=== PATIENT | male | born 1985 | race Caucasian/White ===

== ENCOUNTER 2019-04-14 13:12 | Emergency (ER) | payer BC, SELFPAY ==
[2019-04-14 13:23] VITALS: BP 127/63; PULSE 71; RESP 18; TEMP 36.6; O2SAT 99; BMI 18.4
--- NOTE | 2019-04-14 13:31 | XRR_ITS ---
PROCEDURE INFORMATION: Exam: XR Left Hand Exam date and time: 04/14/2019 1:33 PM Age: 33 years old Clinical indication: Pain; Hand; Left; Additional info: Trauma TECHNIQUE: Imaging protocol: XR Left hand. Views: 1 or 2 views. COMPARISON: No relevant prior studies available. FINDINGS: Bones/joints: Normal. No fracture evident. Soft tissues: Normal. XR/XR hand LT 2V [id number] IMPRESSION: No acute findings.
--- NOTE | 2019-04-14 13:33 | W.ED.EXTPRO ---
HPI - Extremity Problem General: Chief complaint: Extremity Injury, Upper Stated complaint: l hand pain Time Seen by Provider: 04/14/19 13:15 Review of Systems General: Reports: 10 or more systems reviewed and unremarkable except in HPI and below PFSH ED PFSH: Social History Smoking and tobacco status: never smoked Physical Exam Const: COMMON NORMALS: no apparent distress, oriented x3, no limitations and alert GENERAL APPEARANCE: cooperative and comfortable ORIENTATION/CONSCIOUSNESS: Yes awake, Yes oriented to person, Yes oriented to place and Yes oriented to time HENMT: COMMON NORMALS: normocephalic, head/scalp atraumatic, external ears normal, EAC's normal, TM's normal bilaterally and external nose normal HEAD & SCALP: normal to inspection, normocephalic and atraumatic FACE & SINUS: normal facial exam, sinuses nontender and face symmetric NOSE: external nose normal, nares normal and no nasal discharge EXTERNAL EAR: Yes external ears normal EXTERNAL AUDITORY CANAL: EAC's normal TYMPANIC MEMBRANE: TM's normal bilaterally MOUTH: oral and palatal mucosa normal, lip normal and tongue normal THROAT: posterior oropharynx normal, tonsils normal and uvula midline Eye: COMMON NORMALS: PERRL, EOMs intact bilaterally and conjunctivae normal GENERAL EYE: normal appearance of both eyes and normal light reflex EYELID: eyelids normal CONJUNCTIVA: Yes conjunctivae normal PUPIL: Yes PERRL EOM: Yes EOM abnormal DIRECT OPHTHALMOSCOPY: Yes normal light reflex Neck/C-Spine: COMMON NORMALS: full ROM, no lymphadenopathy, supple, no meningeal signs, no JVD and thyroid normal GENERAL: Yes normal visual inspection THYROID: thyroid normal CERVICAL SPINE: Yes cervical ROM normal and Yes normal cervical lordosis Lymph: LYMPHATIC: no lymphadenopathy noted Chest: COMMONS NORMALS: inspection of chest normal and palpation of chest normal Resp: COMMON NORMALS: normal respiratory effort, no retractions and clear to auscultation bilaterally AUSCULTATION: clear to auscultation bilaterally Cardio: COMMON NORMALS: no JVD, regular rate, regular rhythm, S1 normal heart sound, S2 normal heart sound, no gallops, no clicks, no murmurs, no rub and peripheral pulses 2+ throughout RATE: regular rate RHYTHM: regular rhythm HEART SOUNDS: S1 normal and S2 normal PERIPHERAL PULSES: pulses 2+ throughout GI: COMMON NORMALS: normal to inspection, nondistended, normoactive bowel sounds, soft to palpation, non-tender and no masses PALPATION: Yes soft : COMMON NORMALS: Yes no CVA tenderness BLADDER/KIDNEY EXAM: Yes no CVA tenderness Back/Pelvis: COMMON NORMALS: no CVA tenderness, thoracic and lumbar spine normal to inspection, no thoracic nor lumbar tenderness and thoraco-lumbar ROM normal Extremity: COMMON NORMALS: normal to inspection, full ROM, normal capillary refill, no joint enlargement, no clubbing, cyanosis or edema, no calf tenderness and no pedal edema GENERAL: Yes normal exam except as noted LEFT UPPER EXTREMITY: Yes hand & digits Left hand and digits: Yes inspection, Yes palpation (pain over dosum of left hand, base of second metatarsal ) and Yes ROM Neuro: COMMON NORMALS: oriented x3, moves all extremities, no focal motor deficits, no sensory deficits noted and gait normal SENSORIUM/ORIENTATION: Yes alert, Yes oriented to person, Yes oriented to place and Yes oriented to time MENINGEAL SIGNS: Yes no meningeal signs Psych: COMMON NORMALS: mental status grossly normal, thought process normal, cooperative, affect normal, speech normal and activity/motor behavior normal SPEECH: Yes normal speech THOUGHT PROCESS: normal thought process Skin: COMMON NORMALS: no rashes or lesions noted, no wounds and skin turgor normal GENERAL SKIN EXAM: no rashes or lesions noted and turgor normal Course Vital Signs: Vital signs: Vital Signs Temperature 98 F 04/14/19 13:23 Pulse Rate 71 04/14/19 13:23 Respiratory Rate 18 04/14/19 13:23 Blood Pressure 127/63 04/14/19 13:23 Pulse Oximetry 99 04/14/19 13:23 MDM - Extremity (Nontraumatic) Imaging Data^: Xray Ortho: My impression: left hand xray 2v- No acute findings or fractures Discharge Plan Discharge Patient Disposition: Home, Self-Care Clinical Impression: Sprain and strain of wrist Condition: Stable Prescriptions: No Action No Known Home Medications RF: 0 Referrals: Fermin Morales MD [Family Provider] - Discharge Diet: Advance as tolerated Discharge Activity: Increase activity as tolerated Activity Restrictions/Additional Instructions: Follow up with PCP or return to ER if worsening in symptoms. Xray today was negative. May continue to rest, ice, elevate, and compress. Stand Alone Forms: Work/School Release Coding Level of Care Code ED [employer] Developer for Chg Fwd Exam Comprehensive
[2019-04-14 14:19] VITALS: BP 126/74; PULSE 68; RESP 18; O2SAT 98
== END 2019-04-14 14:20 | disposition home or self-care (01) ==
PROVIDERS: Emergency Provider Nurse Practitioner Family; Family Provider Family Medicine
DX: S63.502A Unspecified sprain of left wrist, initial encounter (principal); S66.912A Strain of unspecified muscle, fascia and tendon at wrist and hand level, left hand, initial encounter; X58.XXXA Exposure to other specified factors, initial encounter
CPT/HCPCS: 73120; 99281; 99282

== ENCOUNTER 2020-07-07 14:43 | Emergency (ER) | payer OTHER, SELFPAY ==
[2020-07-07 15:08] VITALS: BP 115/71; PULSE 72; RESP 20; TEMP 37; O2SAT 99; BMI 20.7
--- NOTE | 2020-07-07 16:06 | W.ED.GENADLT ---
HPI - General Adult General: Chief complaint: General Medical Stated complaint: ALLERGIC REACTION/DIFF BREATHING Time Seen by Provider: 07/07/20 15:51 History of Present Illness: HPI narrative: Patient reports worsening sinus and nasal to congestion for the last 2 weeks. Patient had gone out fishing on Monday and since then his symptoms have worsened. Patient's been unable to rest and sleep due to nasal and sinus pressure. Onset (ago): week(s) Location: face Quality: aching and dull Relieving factors: none Exacerbating factors: none Review of Systems General: Reports: 10 or more systems reviewed and unremarkable except in HPI and below ENMT: Reports: nasal discharge and nasal congestion PFS ED PFSH: Social History (Updated 12/30/19 @ 12:41 by Lauren Hendrickson LPN) Smoking and tobacco status: current every day smoker Physical Exam Const: COMMON NORMALS: no acute distress and patient oriented x3 GENERAL APPEARANCE: cooperative HENMT: COMMON NORMALS: normocephalic, TM's normal bilaterally and Normal external nose present HEAD & SCALP: normal to inspection and normocephalic NOSE: Normal external nose present, Abnormal mucous membranes and turbinates present erythematous and Nasal discharge present TYMPANIC MEMBRANE: TM's normal bilaterally MOUTH: Normal oral and palatal mucosa present THROAT: posterior oropharynx abnormal cobblestoning and erythema Eye: GENERAL EYE: appearance normal, both eyes and all related structures Neck/C-Spine: COMMON NORMALS: full ROM Lymph: LYMPHATIC: no lymphadenopathy noted Chest: COMMONS NORMALS: normal inspection of the chest Resp: COMMON NORMALS: normal respiratory effort EFFORT & INSPECTION: Yes able to speak in complete sentences Cardio: COMMON NORMALS: regular rate and regular rhythm RATE: regular rate RHYTHM: regular rhythm GI: COMMON NORMALS: non-tender Back/Pelvis: COMMON NORMALS: thoracic and lumbar spine normal to inspection Extremity: COMMON NORMALS: normal to inspection Neuro: COMMON NORMALS: patient oriented x3 and moves all extremities Psych: COMMON NORMALS: mental status grossly normal and cooperative Skin: COMMON NORMALS: no rashes or lesions noted GENERAL SKIN EXAM: no rashes or lesions noted Course Vital Signs: Vital signs: Vital Signs Temperature 98.6 F 07/07/20 15:08 Pulse Rate 72 07/07/20 15:08 Respiratory Rate 20 H 07/07/20 15:08 Blood Pressure 115/71 07/07/20 15:08 Pulse Oximetry 99 07/07/20 15:08 MDM - General Adult MDM Narrative: Medical decision making narrative: Patient comes in with nasal congestion and difficulty breathing. On exam lungs are clear to auscultation. Nasal mucosa swollen and erythematous. Patient has maxillary sinus pain on pressure. Bilateral tympanic membranes are normal. Posterior pharynx is erythematous with some cobblestoning. Differential diagnosis includes seasonal allergies, bacterial rhinosinusitis, asthma. No signs of significant difficulties or respiratory distress is noted. Due to patient's time of greater than 10 days we will go ahead and treat with antibiotics and steroids for a acute rhinosinusitis. Reviewed exam with patient with recommendations for treatment and follow-up. Patient reported understanding. Discharge Plan Discharge Patient Disposition: Home Clinical Impression: Acute rhinosinusitis Condition: Stable Prescriptions: New cetirizine-pseudoephedrine 5-120 mg tablet extended release 12 hr 1 tab PO BID PRN (Reason: nasal congestion) Qty: 20 RF: 0 fluticasone propionate 50 mcg/actuation spray,suspension 1 spray intranasal BID PRN (Reason: allergy symptoms) Qty: 16 RF: 0 azithromycin 250 mg tablet See Rx Instructions .ROUTE .COMPLEX Qty: 6 RF: 0 No Action Zyrtec 10 mg Tablet 10 mg PO DAILY PRN (Reason: Allergy Symptoms) RF: 0 Discharge Orders: Discharge ED (Routine); Ordered 07/07/20 Ordered By: Dante Amaro Discharge Diet: Usual diet Discharge Activity: Increase activity as tolerated Patient Instructions: Acute Bacterial Rhinosinusitis (ED), Opioid Safety Activity Restrictions/Additional Instructions: Use medication as directed. Drink plenty of water with medication. Activity as tolerated. Follow-up with primary care for further instruction. Use saline nasal spray to help clear nasal passages as needed. Clear nasal passages before using fluticasone nasal spray. Follow-up with primary care as needed. Return to the emergency department for new concerns. Coding Level of Care Code ED Fabrication Machine Operator for Craig Lyons
[2020-07-07] MEDS: dexamethasone 10 mg/mL INJ IM (16:33)
== END 2020-07-07 16:39 | disposition home or self-care (01) ==
PROVIDERS: Emergency Provider Nurse Practitioner Family
DX: J01.90 Acute sinusitis, unspecified (principal); F17.210 Nicotine dependence, cigarettes, uncomplicated
CPT/HCPCS: 96372; 99283; J1100

== ENCOUNTER 2020-11-19 18:05 | Emergency (ER) | payer OTHER, SELFPAY ==
[2020-11-19 18:09] VITALS: BP 138/74; PULSE 73; RESP 18; TEMP 36.4; O2SAT 99; BMI 21.7
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
[2020-11-19 18:30] VITALS: RESP 18; O2SAT 97
[2020-11-19] MEDS: tetracaine 0.5% Op Soln 4 mL Btl 1 DROP EYE-LEFT (18:30)
[2020-11-19] MEDS: ondansetron 2 mg/ML SDV 2 mL 4 MG IVP (18:30)
[2020-11-19] MEDS: HYDROmorphone 1 mg/mL INJ 1 mL IVP (18:30)
--- NOTE | 2020-11-19 19:08 | PC.NURSE ---
pt visual acuiity was blurry in the left eye as expected. could only see the E. right eye was 20/30
[2020-11-19] MEDS: metoclopramide 5 mg/mL SDV 2 mL IVP (19:14)
[2020-11-19] MEDS: diphenhydrAMINE 50 mg/mL SDV 1mL 25 MG IVP (19:16)
[2020-11-19 19:20] VITALS: BP 96/72
--- NOTE | 2020-11-20 12:29 | DCPLANNER ---
guest experience manager had message to schedule a follow up appointment for patient with Dr. Zuniga. Patient came back to the ER on 11.20.[address] Zuniga office upon discharge.
== END 2020-11-19 19:20 | disposition home or self-care (01) ==
PROVIDERS: Emergency Provider Emergency Medicine
DX: T20.10XA Burn of first degree of head, face, and neck, unspecified site, initial encounter (principal); T26.12XA Burn of cornea and conjunctival sac, left eye, initial encounter; T31.0 Burns involving less than 10% of body surface; X12.XXXA Contact with other hot fluids, initial encounter; F17.210 Nicotine dependence, cigarettes, uncomplicated
CPT/HCPCS: 96374; 96375; 99284; J1170; J1200; J2405; J2765

== ENCOUNTER 2020-11-20 10:27 | Emergency (ER) | payer OTHER, SELFPAY ==
[2020-11-20 10:33] VITALS: BP 117/70; PULSE 69; RESP 13; TEMP 36.4; O2SAT 95; BMI 19.0
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
[2020-11-20] MEDS: tetracaine 0.5% Op Soln 4 mL Btl 1 DROP EYE-BOTH (11:53)
== END 2020-11-20 12:05 | disposition home or self-care (01) ==
PROVIDERS: Emergency Provider Emergency Medicine
DX: T26.10XA Burn of cornea and conjunctival sac, unspecified eye, initial encounter (principal); X12.XXXA Contact with other hot fluids, initial encounter; F17.210 Nicotine dependence, cigarettes, uncomplicated
CPT/HCPCS: 99282

== ENCOUNTER 2021-02-25 13:32 | Emergency (ER) | payer OTHER, SELFPAY ==
[2021-02-25 14:01] VITALS: BP 99/58; PULSE 104; RESP 16; TEMP 36.7; O2SAT 99; BMI 24.4
--- NOTE | 2021-02-25 14:35 | ED_ITS ---
HPI - Abdominal Pain General: Chief Complaint: Abdominal Pain Stated Complaint: THROWING UP Time Seen by Provider: 02/25/21 14:17 History of Present Illness: HPI narrative: Patient comes in with concerns for cold symptoms including chills, body aches, cough, congestion, vomiting. He states the symptoms started yesterday. States his whole family has been sick this week with 2 of them testing positive for COVID. Patient has been unable to keep anything down all day. Associated Symptoms: Reports chills, fever(s), nausea and vomiting; Denies dysuria Review of Systems Const: Reports: fever(s), chills and body aches Eyes: Denies: change in vision or blurry vision ENMT: Denies: throat pain or odynophagia Card: Denies: chest pain or palpitations Resp: Reports: dyspnea; Denies: productive cough GI: Reports: abdominal pain, nausea and vomiting : Denies: flank pain or dysuria Musc: Denies: neck pain or back pain Skin/Breast: Denies: rash or pruritus Neuro: Reports: headache(s); Denies: numbness in extremities Psych: Denies: anxiety or change in appetite Endo: Denies: polyuria or excessive sweating PFSH ED PFSH: Social History (Updated 12/30/19 @ 12:41 by Lauren Hendrickson LPN) Smoking and tobacco status: current every day smoker Physical Exam Const: COMMON NORMALS: patient oriented x3, healthy appearing and alert; apparent distress (Mild distress) HENMT: COMMON NORMALS: normocephalic and atraumatic HEAD & SCALP: normocephalic and atraumatic MOUTH: moist mucous membranes not abnormal (Dry mucous membranes) Eye: COMMON NORMALS: Equal, round and reactive pupils present, EOMs intact bilaterally and negative for conjunctivae normal (Bilateral glassy eyed appearance) CONJUNCTIVA: No conjunctivae normal (Bilateral glassy eyed appe arance) PUPIL: Yes Equal, round and reactive pupils present Neck/C-Spine: COMMON NORMALS: full ROM and supple Resp: COMMON NORMALS: normal respiratory effort, No retractions and No use of accessory muscles Cardio: COMMON NORMALS: regular rate and regular rhythm RATE: regular rate RHYTHM: regular rhythm GI: COMMON NORMALS: Normal to inspection, nondistended, normoactive bowel sounds present and Soft to palpation PALPATION: Yes Soft to palpation and Yes Tenderness to palpation present (GI) (Generalized mild tenderness to palpation) Back/Pelvis: COMMON NORMALS: thoracic and lumbar spine normal to inspection and no thoracic nor lumbar tenderness Extremity: COMMON NORMALS: normal to inspection and full ROM Neuro: COMMON NORMALS: patient oriented x3 SENSORIUM/ORIENTATION: Yes alert Psych: COMMON NORMALS: mental status grossly normal and cooperative Skin: COMMON NORMALS: no rashes or lesions noted and no wounds GENERAL SKIN EXAM: no rashes or lesions noted Course Vital Signs: Vital signs: Vital Signs Temperature 98.1 F 02/25/21 14:01 Pulse Rate 104 H 02/25/21 14:01 Respiratory Rate 16 02/25/21 14:01 Blood Pressure 99/58 02/25/21 14:01 Pulse Oximetry 99 02/25/21 14:01 MDM - Abdominal Pain MDM Narrative: Medical decision making narrative: Patient comes in with concerns for cold symptoms including chills, body aches, cough, congestion, vomiting. He states the symptoms started yesterday. States his whole family has been sick this week with 2 of them testing positive for COVID. Patient has been unable to keep anything down all day. On physical exam he has dry mucous membranes. He does have some mild generalized tenderness of his entire abdomen. We will give him IV fluids, check labs, treat nausea with IV antiemetics, treat pain with IV Toradol, and reassess. On reassessment I talked to the patient about the test results. He states he is feeling much better at this time. Will discharge with precautions to return for worsening or changing symptoms. Lab Data: Labs: Lab Results 02/25/21 02/25/21 15:00 15:00 WBC 7.4 10^3/uL 10^3/ uL (4.0-10.0) RBC 4.88 10^6/uL 10^6 /uL (4.1-5.3) Hgb 14.7 g/dL g/dL (11.7-16.6) Hct 42.6 % % (42.0-52.0) MCV 87.3 fl fl (80-94) MCH 30.1 pg pg (28.0-34.0) MCHC 34.5 g/dL g/dL (30.0-36.0) RDW 11.8 % L % (12.1-15.1) Plt Count 183 10^3/cmm 10^3 /cmm (130-400) MPV 9.0 fL fL (7.4-10.4) Neut % (Auto) 85.6 % % Lymph % (Auto) 2.8 % % [place] % (Auto) 10.8 % % Eos % (Auto) 0.3 % % Baso % (Auto) 0.1 % % Neut # (Auto) 6.32 10^3/uL 10^3 /uL (1.8-7.7) Lymph # (Auto) 0.2 10^3/uL L 10^ 3/uL (0.8-4.8) [place] # (Auto) 0.8 10^3/uL 10^3/ uL (0.2-0.9) Eos # (Auto) 0.0 10^3/uL 10^3/ uL (0.0-0.8) Baso # (Auto) 0.0 10^3/uL 10^3/ uL (0.0-0.1) Nucleated RBC % (a uto) 0 % % Nucleated RBCs # 0.0 /100WBC /100W BC Sodium 138 mmol/L mmol/L (136-145) Potassium 3.7 mmol/L mmol/L (3.5-5.1) Chloride 101 mmol/L mmol/L (98-107) Carbon Dioxide 21 mmol/L L mmol/ L (22-29) Anion Gap 19.7 H (5-19) BUN 10 mg/dL mg/dL (6-20) Creatinine 1.0 mg/dL mg/dL (0.7-1.2) GFR Calculation 85.0 mL/min L mL/ min (90-130) Glucose 98 mg/dL mg/dL (65-115) Calculated Osmolal ity 285 mOsm/kg mOsm/ kg (285-295) Calcium 8.8 mg/dL mg/dL (8.5-10.5) Total Bilirubin 0.6 mg/dL mg/dL (0.15-1.2) AST 19 U/L U/L (0-40) ALT 13 U/L U/L (0-41) Alkaline Phosphata se 87 IU/L IU/L (40-130) Total Protein 6.5 g/dL L g/dL (6.6-8.7) Albumin 4.4 g/dL g/dL (3.5-5.2) Globulin 2.1 g/dL g/dL (1.3-4.6) Lipase 15 U/L U/L (13-60) Discharge Plan Discharge Patient Disposition: Home Clinical Impression: Vomiting Qualifiers: Vomiting type: unspecified Nausea presence: with nausea Qualified Code(s): R11.2 - Nausea with vomiting, unspecified Condition: Stable Prescriptions: New Zofran 4 mg tablet 4 mg PO Q8H 5 Days Qty: 15 RF: 0 No Action cetirizine-pseudoephedrine 5-120 mg tablet extended release 12 hr 1 tab PO BID PRN (Reason: nasal congestion) Qty: 20 RF: 0 Zyrtec 10 mg Tablet 10 mg PO DAILY PRN (Reason: Allergy Symptoms) RF: 0 fluticasone propionate 50 mcg/actuation spray,suspension 1 spray intranasal BID PRN (Reason: allergy symptoms) Qty: 16 RF: 0 azithromycin 250 mg tablet See Rx Instructions .ROUTE .COMPLEX Qty: 6 RF: 0 hydrocodone-acetaminophen 5-325 mg tablet 1 tab PO Q6H PRN (Reason: pain) Qty: 14 RF: 0 ondansetron 4 mg tablet,disintegrating 4 mg PO Q6H PRN (Reason: nausea and vomiting) Qty: 14 RF: 0 Discharge Orders: Discharge ED (Routine); Ordered 02/25/21 Ordered By: Issa Acosta Coding Level of Care Code 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
[2021-02-25] MEDS: sodium chloride 0.9% 1,000 ML 999 ML IV (14:57)
[2021-02-25] MEDS: ketorolac 30 mg/mL INJ IVP (14:57)
[2021-02-25] MEDS: ondansetron 2 mg/ML SDV 2 mL 4 MG IVP (14:57)
[2021-02-25 15:05] LABS: Basophils % 0.1 %; Eosinophils % 0.3 %; Hematocrit 42.6 % (42.0-52.0); Hemoglobin 14.7 g/dL (11.7-16.6); Lymphocytes # 0.2 10^3/uL (0.8-4.8); Lymphocytes % 2.8 %; Mean Corpuscular HGB Conc 34.5 g/dL (30.0-36.0); Mean Corpuscular Hemoglobin 30.1 pg (28.0-34.0); Mean Corpuscular Volume 87.3 fl (80-94); Monocytes # 0.8 10^3/uL (0.2-0.9); Monocytes % 10.8 %; Neutrophils # 6.32 10^3/uL (1.8-7.7); Neutrophils % 85.6 %; Nucleated Red Blood Cells % 0 %; Platelet Count 183 10^3/cmm (130-400); Red Blood Count 4.88 10^6/uL (4.1-5.3); Red Cell Distribution Width 11.8 % (12.1-15.1); White Blood Count 7.4 10^3/uL (4.0-10.0)
[2021-02-25 15:26] LABS: Alanine Aminotransferase 13 U/L (0-41); Albumin Level 4.4 g/dL (3.5-5.2); Alkaline Phosphatase 87 IU/L (40-130); Anion Gap 19.7 (5-19); Aspartate Amino Transferase 19 U/L (0-40); Blood Urea Nitrogen 10 mg/dL (6-20); Calcium 8.8 mg/dL (8.5-10.5); Carbon Dioxide 21 mmol/L (22-29); Chloride 101 mmol/L (98-107); Globulin 2.1 g/dL (1.3-4.6); Glucose 98 mg/dL (65-115); Lipase 15 U/L (13-60); Osmolality Calculated 285 mOsm/kg (285-295); Potassium 3.7 mmol/L (3.5-5.1); Sodium 138 mmol/L (136-145); Total Bilirubin 0.6 mg/dL (0.15-1.2); Total Protein 6.5 g/dL (6.6-8.7)
[2021-02-25 17:56] VITALS: BP 98/54; PULSE 97; RESP 16; O2SAT 98
== END 2021-02-25 17:57 | disposition home or self-care (01) ==
PROVIDERS: Emergency Provider Emergency Medicine
DX: R11.2 Nausea with vomiting, unspecified (principal); F17.210 Nicotine dependence, cigarettes, uncomplicated
CPT/HCPCS: 80053; 83690; 85025; 96361; 96374; 96375; 99283; J1885; J2405; J7030

== ENCOUNTER 2021-09-01 22:16 | Emergency (ER) | payer OTHER, SELFPAY ==
[2021-09-01 22:23] VITALS: BP 128/65; PULSE 68; RESP 34; TEMP 36.7; O2SAT 100; BMI 19.0
--- NOTE | 2021-09-01 22:57 | ED_ITS ---
HPI - SOB/Dyspnea General: Chief Complaint: Shortness of Breath/Dyspnea Stated Complaint: sob Time Seen by Provider: 09/01/21 22:57 History of Present Illness: HPI Narrative: Mr. Espinoza is a 35-year-old gentleman with significant past medical history of chronic allergies and vaping who presents to the emergency department due to shortness of breath. Apparently he was seen 2 weeks ago at [facility] and diagnosed with COVID however felt like he was improving. He is starting this morning is at shortness of breath and cough to the point of posttussive emesis. Symptoms are worse with exertion. Overall intensity symptoms is moderate to severe. Denies other typical COVID symptoms. No other specific changes in health, exacerbating, or alleviating factors identified. Onset (ago): hour(s) Context: recent illness Timing: constant Severity: moderate Exacerbating factors: coughing Associated symptoms: Reports nausea Review of Systems General: Reports: 10 or more systems reviewed and unremarkable except in HPI and below GI: Reports: nausea [facility] ED PFSH: Medical History (Updated 09/13/21 @ 23:05 by Gus Brennan MD) No significant past medical history Surgical History (Updated 09/13/21 @ 23:05 by Gus Brennan MD) No significant past surgical history Social History Smoking and tobacco status: current every day smoker Physical Exam Const: COMMON NORMALS: alert GENERAL APPEARANCE: cooperative, well developed and ill appearing (somewhat) HENMT: COMMON NORMALS: normocephalic and atraumatic HEAD & SCALP: normocephalic and atraumatic THROAT: posterior oropharynx normal Eye: COMMON NORMALS: conjunctivae normal CONJUNCTIVA: Yes conjunctivae normal SCLERA: sclerae normal Neck/C-Spine: COMMON NORMALS: supple GENERAL: Yes trachea midline Resp: EFFORT & INSPECTION: Yes able to speak in complete sentences and Yes tachypneic AUSCULTATION: diminished lung sounds Cardio: COMMON NORMALS: regular rate and regular rhythm RATE: regular rate RHYTHM: regular rhythm GI: COMMON NORMALS: Soft to palpation PALPATION: Yes Soft to palpation and No Tenderness to palpation present (GI) PERCUSSION: normal to percussion Extremity: GENERAL: Yes normal exam except as noted and No edema Neuro: COMMON NORMALS: moves all extremities SENSORIUM/ORIENTATION: Yes dylon rt and No Orientation impaired Psych: COMMON NORMALS: mental status grossly normal and Normal thought process present THOUGHT PROCESS: Normal thought process present Course ED course: - Patient was seen and evaluated by me at bedside - Patient placed on cardiac monitors, IV access obtained - Initial evaluation notable for exam as above - Labs and xrays personally interpreted by me. EKG with sinus bradycardia, no STEMI - Fluids, analgesia, and antiemetic given. RT treatment given. - Labs notable for mildly cytosis, normal hemoglobin. Metabolic panel without significant derangement, lactic acid mildly elevated. Troponin negative. Viral studies negative. - Imaging notable for no lobar consolidation or pneumothorax - Upon serial reexamination after treatment the patient was improved - Based on patient history, evaluation, and testing as interpreted the most likely cause of the patient's condition is post COVID shortness of breath likely secondary to inflammation/atypical infection - The results of ED evaluation were discussed with the patient including prescriptions and/or symptomatic cares (if applicable) including appropriate and responsible use, followup plan, and return precautions. The patient verbalized understanding and felt safe for discharge. - Patient discharged in satisfactory condition. Note: Click bubbles or prepopulated tapia in note writing are used for assistance with data collection and billing and are inherently more limited than narrative and other text portions of this note. Please use narrative for additional clinical history and defer to narrative/free test for any case of contradictory information. If information appears in only free text or click bubble it should be considered present or absent as reported. Please contact note policy writer sales for clarifications of clinical information or contradictory information. MDM is a brief summary, contradictory or erroneous seeming information should be clarified and full note should be reviewed. Vital Signs: Vital signs: Vital Signs Temperature 98.0 F 09/01/21 22:23 Pulse Rate 71 09/02/21 01:30 Respiratory Rate 13 09/02/21 01:30 Blood Pressure 107/56 09/02/21 01:30 Pulse Oximetry 95 09/02/21 01:30 Oxygen Delivery Nj thod 09/02/21 01:30 MDM - SOB/Dyspnea Medical Decision Making 36-year-old gentleman with history of COVID and breathing presenting with respiratory symptoms. Dehydration noted on ED evaluation. Patient improved with treatment and able to tolerate p.o. intake. Satisfactory outpatient management. Medical Records I reviewed the patient's medical records. Lab Data I reviewed the patient's lab results. : 09/01/21 23:35 09/01/21 23:35 Labs/Radiology: Radiology Impressions Chest X-Ray 09/02/21 00:12 IMPRESSION: No acute abnormality demonstrated. Laboratory Results WBC 11.7 10^3/uL (4.0-10.0) H 09/01/21 23:35 RBC 4.65 10^6/uL (4.1-5.3) 09/01/21 23:35 Hgb 14.0 g/dL (11.7-16.6) 09/01/21 23:35 Hct 40.5 % (42.0-52.0) L 09/01/21 23:35 MCV 87.1 fl (80-94) 09/01/21 23:35 MCH 30.1 pg (28.0-34.0) 09/01/21 23:35 MCHC 34.6 g/dL (30.0-36.0) 09/01/21 23:35 RDW 11.8 % (12.1-15.1) L 09/01/21 23:35 Plt Count 239 10^3/cmm (130-400) 09/01/21 23:35 MPV 9.1 fL (7.4-10.4) 09/01/21 23:35 Neut % (Auto) 76.9 % 09/01/21 23:35 Lymph % (Auto) 14.7 % 09/01/21 23:35 [place] % (Auto) 7.3 % 09/01/21 23:35 Eos % (Auto) 0.5 % 09/01/21 23:35 Baso % (Auto) 0.3 % 09/01/21 23:35 Neut # (Auto) 9.01 10^3/uL (1.8-7.7) H 09/01/21 23:35 Lymph # (Auto) 1.7 10^3/uL (0.8-4.8) 09/01/21 23:35 [place] # (Auto) 0.9 10^3/uL (0.2-0.9) 09/01/21 23:35 Eos # (Auto) 0.1 10^3/uL (0.0-0.8) 09/01/21 23:35 Baso # (Auto) 0.0 10^3/uL (0.0-0.1) 09/01/21 23:35 Nucleated RBC % (auto) 0 % 09/01/21 23:35 Nucleated RBCs # 0.0 /100WBC 09/01/21 23:35 D-Dimer 0.28 ug/mIFEU (0-0.59) 09/01/21 23:35 Sodium 138 mmol/L (136-145) 09/01/21 23:35 Potassium 3.6 mmol/L (3.5-5.1) 09/01/21 23:35 Chloride 103 mmol/L (98-107) 09/01/21 23:35 Carbon Dioxide 23 mmol/L (22-29) 09/01/21 23:35 Anion Gap 15.6 (5-19) 09/01/21 23:35 BUN 15 mg/dL (6-20) 09/01/21 23:35 Creatinine 1.0 mg/dL (0.7-1.2) 09/01/21 23:35 GFR Calculation 85.0 mL/min (90-130) L 09/01/21 23:35 Glucose 166 mg/dL (65-115) H 09/01/21 23:35 Calculated Osmolality 291 mOsm/kg (285-295) 09/01/21 23:35 Lactic Acid 2.3 mmol/L (0.5-2.2) H 09/01/21 23:35 Calcium 9.0 mg/dL (8.5-10.5) 09/01/21 23:35 Total Bilirubin 0.3 mg/dL (0.15-1.2) 09/01/21 23:35 AST 11 U/L (0-40) 09/01/21 23:35 ALT 8 U/L (0-41) 09/01/21 23:35 Alkaline Phosphatase 99 IU/L (40-130) 09/01/21 23:35 Troponin T Baseline 6 ng/L (0-15) 09/01/21 23:35 Troponin T 120 Minute 6.00 ng/L (0-15) 09/02/21 01:28 Delta Troponin T 0 ABS# (0-10) 09/02/21 01:28 NT-Pro-B Natriuret Pep 7 pg/mL (0-125) 07/20/22 23:35 Total Protein 6.0 g/dL (6.6-8.7) L 09/01/21 23:35 Albumin 4.3 g/dL (3.5-5.2) 09/01/21 23:35 Globulin 1.7 g/dL (1.3-4.6) 09/01/21 23:35 Influenza Type A Ag Negative (Negative) 09/01/21 23:37 Influenza Type B Ag Negative (Negative) 09/01/21 23:37 SARS-CoV-2 Ag (Rapid) Negative (Negative) 09/01/21 23:37 Discharge Plan Discharge Patient Disposition: Home Clinical Impression: Shortness of breath Condition: Stable Prescriptions: New ondansetron 4 mg tablet,disintegrating 4 mg PO Q8H PRN (Reason: nausea and vomiting) Qty: 15 0RF albuterol sulfate 90 mcg/actuation HFA aerosol inhaler 2 inh inhalation Q4H PRN (Reason: shortness of breath or wheezing) Qty: 8.5 0 RF No Action cetirizine-pseudoephedrine 5-120 mg tablet extended release 12 hr 1 tab PO BID PRN (Reason: nasal congestion) Qty: 20 0RF Zyrtec 10 mg Tablet 10 mg PO DAILY PRN (Reason: Allergy Symptoms) fluticasone propionate 50 mcg/actuation spray,suspension 1 spray intranasal BID PRN (Reason: allergy symptoms) Qty: 16 0RF Rx Instructions: administer into each nostril azithromycin 250 mg tablet See Rx Instructions .ROUTE .COMPLEX Qty: 6 0RF Rx Instructions: take 500 mg today (day 1), then 250 mg for 4 days (days 2-5) hydrocodone-acetaminophen 5-325 mg tablet 1 tab PO Q6H PRN (Reason: pain) Qty: 14 0RF ondansetron 4 mg tablet,disintegrating 4 mg PO Q6H PRN (Reason: nausea and vomiting) Qty: 14 0RF Discharge Orders: Discharge ED (Routine); Ordered 09/02/21 Ordered By: Gus Brennan Discharge Diet: Usual diet Discharge Activity: Increase activity as tolerated Activity Restrictions/Additional Instructions: Thank you for visiting the emergency department. You were seen evaluated for shortness of breath. The exact cause of your symptoms is unclear though given history of COVID may be related to atypical bacterial infection or inflammation of underlying lung tissue. You will be given a prescription for inhaler, antinausea medication, antibiotics, and steroids. I would expect improvement in the next few days. Please follow-up with your primary care provider. Please return to the emergency department for worsening symptoms or anything els e that you are concerned about and feel needs emergency department evaluation. 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
[2021-09-01 23:00] VITALS: BP 102/66; PULSE 54; RESP 24; O2SAT 98
--- NOTE | 2021-09-01 23:10 | ECG_ITS ---
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 Measurements Intervals [place] Rate: 54 P: 71 RI: 180 QRS: 68 QRSD: 84 T: 63 QT: 389 QTc: 371 Interpretive Statements SINUS BRADYCARDIA POSSIBLE RIGHT VENTRICULAR CONDUCTION DELAY [RSR (QR) IN V1/V2] ST ELEVATION, PROBABLY EARLY REPOLARIZATION [ST ELEVATION WITH NORMALLY INFLECTED T WAVE] Compared to ECG 11/10/2015 11:25:59 No significant changes Electronically Signed On 09-02-2021 21:13:26 CDT by Constantino Lara M.D. [id number]
[2021-09-01 23:30] VITALS: BP 111/62; PULSE 61; RESP 18; O2SAT 96
[2021-09-01 23:49] LABS: Basophils % 0.3 %; Eosinophils # 0.1 10^3/uL (0.0-0.8); Eosinophils % 0.5 %; Hematocrit 40.5 % (42.0-52.0); Lymphocytes # 1.7 10^3/uL (0.8-4.8); Lymphocytes % 14.7 %; Mean Corpuscular HGB Conc 34.6 g/dL (30.0-36.0); Mean Corpuscular Hemoglobin 30.1 pg (28.0-34.0); Mean Corpuscular Volume 87.1 fl (80-94); Mean Platelet Volume 9.1 fL (7.4-10.4); Monocytes # 0.9 10^3/uL (0.2-0.9); Monocytes % 7.3 %; Neutrophils # 9.01 10^3/uL (1.8-7.7); Neutrophils % 76.9 %; Nucleated Red Blood Cells % 0 %; Platelet Count 239 10^3/cmm (130-400); Red Blood Count 4.65 10^6/uL (4.1-5.3); Red Cell Distribution Width 11.8 % (12.1-15.1); White Blood Count 11.7 10^3/uL (4.0-10.0)
[2021-09-01] MEDS: sodium chloride 0.9% 1,000 ML 999 ML IV (23:49)
[2021-09-01] MEDS: ketorolac 30 mg/mL INJ 15 MG IVP (23:50)
[2021-09-01] MEDS: ondansetron 2 mg/ML SDV 2 mL 4 MG IVP (23:50)
[2021-09-02] VITALS: BP 94/59; PULSE 55; RESP 14; O2SAT 93
[2021-09-02 00:04] LABS: Lactic Sepsis W/Reflex 2.3 mmol/L (0.5-2.2)
[2021-09-02 00:09] LABS: Troponin(5th) Baseline 6 ng/L (0-15)
--- NOTE | 2021-09-02 00:12 | XRR_ITS ---
PROCEDURE INFORMATION: Exam: XR Chest Exam date and time: 09/02/2021 12:24 AM Age: 35 years old Clinical indication: Shortness of breath; Patient HX: SOB with general fatigue. TECHNIQUE: Imaging protocol: Radiologic exam of the chest. Views: 1 view. COMPARISON: CR Chest 1 [place] [id number] 11/10/2015 11:25 AM FINDINGS: Tubes, catheters and devices: Monitor leads project over the chest. Lungs: No significant or acute findings. No consolidation. Pleural spaces: No significant costophrenic angle blunting. No pneumothorax. Heart/Mediastinum: Heart size is normal. Bones/joints: No acute osseous abnormality. XR/XR chest 1V portable [id number] IMPRESSION: No acute abnormality demonstrated.
[2021-09-02 00:19] LABS: Alanine Aminotransferase 8 U/L (0-41); Albumin Level 4.3 g/dL (3.5-5.2); Alkaline Phosphatase 99 IU/L (40-130); Anion Gap 15.6 (5-19); Aspartate Amino Transferase 11 U/L (0-40); Blood Urea Nitrogen 15 mg/dL (6-20); Carbon Dioxide 23 mmol/L (22-29); Chloride 103 mmol/L (98-107); Globulin 1.7 g/dL (1.3-4.6); Glucose 166 mg/dL (65-115); NT Pro B Type Natriuretic Pept 7 pg/mL (0-125); Osmolality Calculated 291 mOsm/kg (285-295); Potassium 3.6 mmol/L (3.5-5.1); Sodium 138 mmol/L (136-145); Total Bilirubin 0.3 mg/dL (0.15-1.2)
[2021-09-02 00:24] LABS: Influenza A by IFA Negative (Negative); Influenza B by IFA Negative (Negative); SARS Covid-2 Antigen Negative (Negative)
[2021-09-02 00:30] VITALS: BP 96/64; PULSE 57; RESP 23
[2021-09-02] MEDS: ipratropium-albuterol 3 mL Neb INHALATION (00:46)
[2021-09-02 00:49] VITALS: PULSE 78; RESP 16; O2SAT 99
[2021-09-02 00:53] VITALS: PULSE 82
[2021-09-02 01:00] VITALS: BP 108/54; PULSE 74; RESP 17; O2SAT 98
--- NOTE | 2021-09-02 01:10 | ECG_ITS ---
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 Measurements Intervals [place] Rate: 75 P: 76 VT: 180 QRS: 71 QRSD: 89 T: 51 QT: 374 QTc: 420 Interpretive Statements SINUS RHYTHM POSSIBLE RIGHT VENTRICULAR CONDUCTION DELAY [RSR (QR) IN V1/V2] NONSPECIFIC T-WAVE ABNORMALITY Compared to ECG 09/01/2021 23:24:36 T-wave abnormality now present Sinus bradycardia no longer present ST (T wave) deviation no longer present Early repolarization no longer present Electronically Signed On 09-02-2021 21:18:34 CDT by Constantino Lara M.D. [id number]
[2021-09-02 01:30] VITALS: BP 107/56; PULSE 71; RESP 13; O2SAT 95
[2021-09-02 01:31] LABS: D Dimer 0.28 ug/mIFEU (0-0.59); Reflex Lactate Order REFLEX LACTIC ORDERD
[2021-09-02 01:54] LABS: Troponin 5 2HR Delta 0 ABS# (0-10)
[2021-09-02] MEDS: doxycycline 100 mg Tablet PO (02:13)
[2021-09-02] MEDS: diphenhydrAMINE 50 mg/mL SDV 1mL 12.5 MG IVP (02:14)
[2021-09-02] MEDS: metoclopramide 5 mg/mL SDV 2 mL IVP (02:14)
== END 2021-09-02 02:27 | disposition home or self-care (01) ==
PROVIDERS: Emergency Provider Emergency Medicine
DX: R06.02 Shortness of breath (principal); F17.210 Nicotine dependence, cigarettes, uncomplicated; Z20.822 Contact with and (suspected) exposure to COVID-19
CPT/HCPCS: 71045; 80053; 83605; 83880; 84484; 85025; 85378; 87426; 87804; 93005; 94640; 96374; 96375; 99285; J1200; J1885; J2405; J2765; J2930; J7030

== ENCOUNTER 2021-10-08 12:24 | Outpatient (CLI) | payer MEDICAID, SELFPAY ==
--- NOTE | 2021-10-08 12:31 | XR_ITS ---
WS: [id number] Abdomen series, Flat and upright 10/08/2021 Clinical Data: EPIGASTRIC ABDOMINAL PAIN Comparison: Abdomen series, 03/04/2010. Findings: No free air is seen beneath the diaphragms. No abnormal intra-abdominal masses or calcifica tions are seen. There is air in the stomach, colon and small bowel but no bowel obstruction is seen. There are clips in the right upper quadrant from a cholecystectomy.. XR/XR abdomen min 2V [id number] Impression: Negative flat and upright films of the abdomen.
== END 2021-10-08 12:25 | disposition home or self-care (01) ==
LOC: RAD 12:27
PROVIDERS: PCP Family Medicine; Visit Provider Family Medicine
DX: R10.13 Epigastric pain (principal)
CPT/HCPCS: 74019

== ENCOUNTER 2021-12-06 15:52 | Outpatient (CLI) | payer MEDICAID, SELFPAY ==
--- NOTE | 2021-12-06 16:25 | XR_ITS ---
WS: [id number] Exam: XR chest 2V* [id number] Date/Time of Exam: 12/06/2021 4:25 PM Reason For Exam: NAUSEA AND VOMITTING Comparison 09/02/2021. The lungs are clear and fully expanded. Normal cardiomediastinal silhouette. Regional bony elements a ppear normal. Signs of previous cholecystectomy. XR/XR chest 2V* [id number] IMPRESSION: 1. Negative chest-no change.
== END 2021-12-06 15:53 | disposition home or self-care (01) ==
LOC: RAD 15:58
PROVIDERS: PCP Family Medicine; Visit Provider Family Medicine
DX: R42 Dizziness and giddiness (principal); R11.2 Nausea with vomiting, unspecified; R68.83 Chills (without fever)
CPT/HCPCS: 71046

== ENCOUNTER 2021-12-07 12:47 | Emergency (ER) | payer OTHER, MEDICAID, SELFPAY ==
[2021-12-07 14:18] VITALS: BP 113/74; PULSE 66; RESP 18; TEMP 36.4; O2SAT 99; BMI 20.9
--- NOTE | 2021-12-07 14:24 | XRR_ITS ---
PROCEDURE INFORMATION: Exam: XR Abdomen Exam date and time: 12/07/2021 5:46 PM Age: 36 years old Clinical indication: Abdominal pain; Epigastric TECHNIQUE: Imaging protocol: Radiologic exam of the abdomen. Views: Frontal supine view of the abdomen. 1 View. COMPARISON: CR XR abdomen min 2V [id number] 10/08/2021 12:36 PM FINDINGS: Gastrointestinal tract: Normal. No bowel dilation. Bones/joints: Unremarkable. XR/XR abdomen 1V* [id number] IMPRESSION: No acute findings.
[2021-12-07 14:41] LABS: Add Urine Microscopic? NO; Charge for UA Resulting for Rev
[2021-12-07 14:50] LABS: Bilirubin Urine Neg (Negative); Blood Urine Neg (Negative); Glucose Urine UA Norm (Normal); Ketones Urine Negative (Negative); Leukocyte Esterase Urine Negative (Negative); Nitrate Urine Negative (Negative); Protein Urine Neg (Negative); Sulfosalicylic Acid Urine Negative (Negative); Urine Appearance Clear (CLEAR); Urine Color Yellow (Yellow); Urobilinogen Urine Norm (Negative); pH Urine 8 (5-7)
[2021-12-07 14:59] LABS: Basophils % 0.1 %; Eosinophils % 0.4 %; Hematocrit 46.5 % (42.0-52.0); Hemoglobin 15.6 g/dL (11.7-16.6); Lymphocytes # 1.8 10^3/uL (0.8-4.8); Lymphocytes % 26.8 %; Mean Corpuscular HGB Conc 33.5 g/dL (30.0-36.0); Mean Corpuscular Hemoglobin 29.6 pg (28.0-34.0); Mean Corpuscular Volume 88.2 fl (80-94); Monocytes # 0.7 10^3/uL (0.2-0.9); Neutrophils # 4.24 10^3/uL (1.8-7.7); Neutrophils % 62.4 %; Nucleated Red Blood Cells % 0 %; Platelet Count 241 10^3/cmm (130-400); Red Blood Count 5.27 10^6/uL (4.1-5.3); White Blood Count 6.8 10^3/uL (4.0-10.0)
[2021-12-07 15:27] LABS: Alanine Aminotransferase 18 U/L (0-41); Albumin Level 4.8 g/dL (3.5-5.2); Alkaline Phosphatase 103 U/L (40-130); Anion Gap 15.2 (5-19); Aspartate Amino Transferase 18 U/L (0-40); Blood Urea Nitrogen 14 mg/dL (6-20); Calcium 9.7 mg/dL (8.5-10.5); Carbon Dioxide 24 mmol/L (22-29); Chloride 102 mmol/L (98-107); Globulin 2.2 g/dL (1.3-4.6); Glomerular Filtration Rate 84.5 mL/min (90-130); Glucose 106 mg/dL (65-115); Lipase 21 U/L (13-60); Osmolality Calculated 285 mOsm/kg (285-295); Potassium 4.2 mmol/L (3.5-5.1); Sodium 137 mmol/L (136-145)
--- NOTE | 2021-12-07 18:05 | W.ED.ABDPA2 ---
Documented by User: LEANN Diane 12/07/21 23:22 HPI - Abdominal Pain General: Chief Complaint: Abdominal Pain Stated Complaint: N/V stomach pain Time Seen by Provider: 12/07/21 17:35 History of Present Illness: Patient is in today for abdominal pain since Monday. He reports that it has been worsening. He reports that his central abdominal pain he has had this accompanied by nausea, vomiting, diarrhea. He reports having 4 stools yesterday that were pudding consistency. He vomited 5-6 times yesterday. He has vomited twice today and had 2 stools today. He reports feeling hot and cold off and on. He denies a measurable fever. He does not have his gallbladder or his appendix. He denies any trauma to the abdomen. He denies any urinary symptoms, dysuria, hematuria. He denies any blood in his stools or emesis. He states that he was seen by his primary care provider yesterday and they did a urine and blood test which were all normal. He is unsure if this is anxiety or stomach bug. He does have a history of gastric inflammation per his female haircutter at bedside. Associated Symptoms: Reports diarrhea (To pudding consistency stools today), fever(s) (No documented fever but hot and cold flashes), heartburn, nausea and vomiting; Denies dysuria and hematemesis Review of Systems Const: Reports: fever(s) (No documented fever but hot and cold flashes) Card: Denies: chest pain or palpitations Resp: Denies: dyspnea GI: Reports: abdominal pain, nausea, vomiting, heartburn and diarrhea (To pudding consistency stools today); Denies: hematemesis : Denies: flank pain, difficulty urinating or dysuria [facility] ED PFSH: Medical History Allergic rhinitis due to allergen Anxiety No significant past medical history Surgical History No significant past surgical history Social History Smoking and tobacco status: former smoker (quit about 2 months ago) Physical Exam Const: COMMON NORMALS: no acute distress, patient oriented x3 and alert Neck/C-Spine: COMMON NORMALS: no JVD Resp: COMMON NORMALS: normal respiratory effort, No use of accessory muscles and clear to auscultation bilaterally AUSCULTATION: clear to auscultation bilaterally Cardio: COMMON NORMALS: no JVD, regular rate, regular rhythm, S1 normal heart sound present, S2 normal heart sound present and No murmurs present (Cardio) RATE: regular rate RHYTHM: regular rhythm HEART SOUNDS: S1 normal heart sound present and S2 normal heart sound present GI: COMMON NORMALS: Normal to inspection, nondistended, normoactive bowel sounds present and Soft to palpation PALPATION: Yes Soft to palpation and Yes Tenderness to palpation present (GI) (Mild epigastric/central abdominal tenderness ) : COMMON NORMALS: Yes no CVA tenderness BLADDER/KIDNEY EXAM: Yes no CVA tenderness Back/Pelvis: COMMON NORMALS: no CVA tenderness Neuro: COMMON NORMALS: patient oriented x3 SENSORIUM/ORIENTATION: Yes alert Course Vital Signs: Vital signs: Vital Signs Temperature 97.6 F 12/07/21 22:20 Pulse Rate 64 12/07/21 22:20 Respiratory Rate 17 12/07/21 22:20 Blood Pressure 116/69 12/07/21 22:20 Pulse Oximetry 97 12/07/21 22:20 Oxygen Delivery Me thod 12/07/21 22:20 MDM - Abdominal Pain Medical Decision Making 36-year-old male patient in for abdominal pain x3 days. Past surgical history of cholecystectomy and appendectomy. He reports feeling hot and cold but no documented fever. He reports central abdominal pain. He states that the pain is dull. He reports nausea, vomiting, diarrhea. He has had 2 emesis and 2 pudding consistency BMs today. He denies any hematuria, hematochezia, hematemesis. Patient is well-appearing. He reports is not holding fluids down today because he has been in ER too long. His lips/mucous membranes are slightly dry. A liter bolus of normal saline along with Zofran is administered patient reports improvement of nausea. GI Cocktail was administered with patient's history of gastric inflammation however he does not report it affects his pain at all. His physical exam is benign. He does not have any guarding tenderness he does not have any signs of acute abdomen or peritonitis. His labs are unremarkable. Patient received 1 dose of morphine for his abdominal pain and after that medication started having reports of severe abdominal pain radiating all over his abdomen. EKG was done. Patient was given Benadryl and Reglan IV. Sent to CT scan for further evaluation. I discussed this case with Dr. Lizama. EKG was reviewed with Dr. Lizama. Dr. Lizama evaluated the patient. Haldol ordered. Patient initially became very anxious after receiving Haldol however he has relaxed now and states that he is feeling better. We will discharge patient home. Explained a brat diet. Explained conservative treatments at home. Rest, increase fluid intake. Follow-up with primary care provider for persisting symptoms. Return to the ER for any new or worsening symptoms. Lab Data : 12/07/21 14:45 12/07/21 14:45 Labs/Radiology: Radiology Impressions Abdomen X-Ray 12/07/21 14:24 IMPRESSION: No acute findings. Abdomen/Pelvis CT 12/07/21 20:03 IMPRESSION: 1. Prominent fluid-filled proximal duodenum. This finding is nonspecific and could be incidental. Additional considerations include an enteritis or possibly sequela of SMA syndrome given somewhat acute angulation of the SMA and given the prominence is centered within the 1st through 3rd segments. 2. A couple punctate nonobstructing stones noted in the right kidney. Laboratory Results WBC 6.8 10^3/uL (4.0-10.0) 12/07/21 14:45 RBC 5.27 10^6/uL (4.1-5.3) 12/07/21 14:45 Hgb 15.6 g/dL (11.7-16.6) 12/07/21 14:45 Hct 46.5 % (42.0-52.0) 12/07/21 14:45 MCV 88.2 fl (80-94) 12/07/21 14:45 MCH 29.6 pg (28.0-34.0) 12/07/21 14:45 MCHC 33.5 g/dL (30.0-36.0) 12/07/21 14:45 RDW 12.0 % (12.1-15.1) L 12/07/21 14:45 Plt Count 241 10^3/cmm (130-400) 12/07/21 14:45 MPV 9.0 fL (7.4-10.4) 12/07/21 14:45 Neut % (Auto) 62.4 % 12/07/21 14:45 Lymph % (Auto) 26.8 % 12/07/21 14:45 [place] % (Auto) 10.0 % 12/07/21 14:45 Eos % (Auto) 0.4 % 12/07/21 14:45 Baso % (Auto) 0.1 % 12/07/21 14:45 Neut # (Auto) 4.24 10^3/uL (1.8-7.7) 12/07/21 14:45 Lymph # (Auto) 1.8 10^3/uL (0.8-4.8) 12/07/21 14:45 [place] # (Auto) 0.7 10^3/uL (0.2-0.9) 12/07/21 14:45 Eos # (Auto) 0.0 10^3/uL (0.0-0.8) 12/07/21 14:45 Baso # (Auto) 0.0 10^3/uL (0.0-0.1) 12/07/21 14:45 Nucleated RBC % (auto) 0 % 12/07/21 14:45 Nucleated RBCs # 0.0 /100WBC 12/07/21 14:45 Sodium 137 mmol/L (136-145) 12/07/21 14:45 Potassium 4.2 mmol/L (3.5-5.1) 12/07/21 14:45 Chloride 102 mmol/L (98-107) 12/07/21 14:45 Carbon Dioxide 24 mmol/L (22-29) 12/07/21 14:45 Anion Gap 15.2 (5-19) 12/07/21 14:45 BUN 14 mg/dL (6-20) 12/07/21 14:45 Creatinine 1.0 mg/dL (0.7-1.2) 12/07/21 14:45 GFR Calculation 84.5 mL/min (90-130) L 12/07/21 14:45 Glucose 106 mg/dL (65-115) 12/07/21 14:45 Calculated Osmolality 285 mOsm/kg (285-295) 12/07/21 14:45 Calcium 9.7 mg/dL (8.5-10.5) 12/07/21 14:45 Total Bilirubin 1.0 mg/dL (0.15-1.2) 12/07/21 14:45 AST 18 U/L (0-40) 12/07/21 14:45 ALT 18 U/L (0-41) 12/07/21 14:45 Alkaline Phosphatase 103 U/L (40-130) 12/07/21 14:45 Total Protein 7.0 g/dL (6.6-8.7) 12/07/21 14:45 Albumin 4.8 g/dL (3.5-5.2) 12/07/21 14:45 Globulin 2.2 g/dL (1.3-4.6) 12/07/21 14:45 Lipase 21 U/L (13-60) 12/07/21 14:45 Urine Color Yellow (Yellow) 12/07/21 14:33 Urine Appearance Clear (CLEAR) 12/07/21 14:33 Urine pH 8 (5-7) H 12/07/21 14:33 Ur Specific [place] 1.010 (1.005-1.030) 12/07/21 14:33 Urine Protein Neg (Negative) 12/07/21 14:33 Urine Glucose (UA) Norm (Normal) 12/07/21 14:33 Urine Ketones Negative (Negative) 12/07/21 14:33 Urine Blood Neg (Negative) 12/07/21 14:33 Urine Nitrate Negative (Negative) 12/07/21 14:33 Urine Bilirubin Neg (Negative) 12/07/21 14:33 Prot Sulfosalicylic Acd Negative (Negative) 12/07/21 14:33 Urine Urobilinogen Norm mg/dL (Negative) 12/07/21 14:33 Ur Leukocyte Esterase Negative (Negative) 12/07/21 14:33 Discharge Plan Discharge Patient Disposition: Home Clinical Impression: Abdominal pain, Gastroenteritis Condition: Stable Prescriptions: New Zuplenz 4 mg film 4 mg PO Q8H PRN (Reason: nausea and vomiting) 3 Days Qty: 9 0RF No Action hydroxyzine HCl 25 mg tablet 25 mg PO QID PRN (Reason: Anxiety and allergies) Qty: 120 0RF loratadine 10 mg tablet 10 mg PO DAILY Qty: 30 5RF Discharge Orders: Discharge ED (Routine); Ordered 12/07/21 Ordered By: Trinidad Rizvi Referrals: Johny Funes MD [Primary Care Provider] - Discharge Diet: As Directed Discharge Activity: Increase activity as tolerated Patient Instructions: Acute Nausea and Vomiting (ED), Abdominal Pain (ED) Activity Restrictions/Additional Instructions: Use the Zofran as needed every 8 hours for nausea and vomiting. Rest your gut. Brat diet?bananas, rice, applesauce, dry toast. Follow-up with primary care provider as needed. Return to the ER for any new or worsening symptoms. Coding Level of Care Code ED Production Line Operator for Chg Fwd Exam Detailed Documented by User: [email or web address] Lizama DO 12/07/21 22:00 HPI - Abdominal Pain General: Chief Complaint: Abdominal Pain Stated Complaint: N/V stomach pain Time Seen by Provider: 12/07/21 17:35 PFSH ED PFSH: Medical History Allergic rhinitis due to allergen Anxiety No significant past medical history Surgical History No significant past surgical history Social History Smoking and tobacco status: former smoker (quit about 2 months ago) Course Consultations: Consultation #1: GENERAL MANAGER asked me to see this patient. I reviewed the chart and interviewed the patient and did a focused physical examination. Patient is here because of nausea vomiting and abdominal pain. He apparently was in his normal state of health up until Monday. He began having upper abdominal pain with subsequent loose stools and some intermittent vomiting. No blood in his stools or blood in his vomitus. He states he has not felt like eating normally since onset of symptoms. He cooked a meal the day before and all family members ate it and they are not sick or ill. No coworkers are ill. He has had a prior cholecystectomy as well as an appendectomy. Takes omeprazole for reflux disease. Denies abdominal trauma, alcohol use etc. He saw his primary care doctor yesterday who did some ancillary test to include flu COVID test which were negative.No recent antibiotics, travel etc. He appears to be comfortable in no acute distress. Chest wall is notable for tenderness in the right lower chest wall without ecchymosis, skin rashes etc. His abdomen is generally soft he has some mild right-sided tenderness without rebound or guarding. I reviewed his ancillary studies which are reassuring. There was a comment by the radiologist regarding fluid-filled stomach however the patient told me that he had just drank fluids right before the CT scan was obtained which likely accounts for fluid-filled stomach. He has had no symptoms in the past which suggest possibility of SMA syndrome. No evidence at this time is to suggest a surgical condition. I recommend continuing with symptomatic relief with close follow-up. Time: 22:00 Vital Signs: Vital signs: Vital Signs Temperature 97.6 F 12/07/21 22:20 Pulse Rate 64 12/07/21 22:20 Respiratory Rate 17 12/07/21 22:20 Blood Pressure 116/69 12/07/21 22:20 Pulse Oximetry 97 12/07/21 22:20 Oxygen Delivery Me thod 12/07/21 22:20 MDM - Abdominal Pain Lab Data : 12/07/21 14:45 12/07/21 14:45 Labs/Radiology: Radiology Impressions Abdomen X-Ray 12/07/21 14:24 IMPRESSION: No acute findings. Abdomen/Pelvis CT 12/07/21 20:03
[2021-12-07] MEDS: lidocaine 2% viscous 15 ML, aluminum-mag hydrox-simethicon 30 ML, sucralfate oral liq 1 GM PO (18:22)
[2021-12-07] MEDS: ondansetron 2 mg/ML SDV 2 mL 4 MG IVP (18:22)
[2021-12-07] MEDS: sodium chloride 0.9% 1,000 ML 999 ML IV (18:26)
[2021-12-07 19:00] VITALS: RESP 16
[2021-12-07] MEDS: morphine 4 mg/mL SDV 1 mL 2 MG IVP (19:00)
--- NOTE | 2021-12-07 20:03 | CTR_ITS ---
PROCEDURE INFORMATION: Exam: CT Abdomen And Pelvis With Contrast Exam date and time: 12/07/2021 8:27 PM Age: 36 years old Clinical indication: Abdominal pain; Acute; Prior surgery; Surgery date: 6+ months; Surgery type: Gb/appx; Additional info: Abdominal pain, periumbilical/ upper abdominal pain. HX of cholecystitis and TECHNIQUE: Imaging protocol: Computed tomography of the abdomen and pelvis with contrast. Radiation optimization: All CT scans at this facility use at least one of these dose optimization techniques: automated exposure control; mA and/or kV adjustment per patient size (includes targeted exams where dose is matched to clinical indication); or iterative reconstruction. Contrast material: OMNI 350; Contrast volume: 95 ml; Contrast route: INTRAVENOUS (IV); COMPARISON: CR (ABDOMEN, ) 12/07/2021 5:46 PM RADIATION DOSE METRICS: Total DLP (mGy-cm): 424.03 FINDINGS: Liver: A couple punctate low-attenuation lesions noted in the left hepatic lobe likely reflecting small cysts. Gallbladder and bile ducts: Cholecystectomy. No ductal dilation. Pancreas: Normal. No ductal dilation. Spleen: Normal. No splenomegaly. Adrenal glands: Normal. No mass. Kidneys and ureters: A couple punctate nonobstructing stones noted in the right kidney. No hydronephrosis. Stomach and bowel: Prominent fluid-filled proximal duodenum proximal to segment 4. No obstruction. No mucosal thickening. Appendix: Appendectomy. Intraperitoneal space: Unremarkable. No free air. No significant fluid collection. Vasculature: Unremarkable. No abdominal aortic aneurysm. Lymph nodes: Unremarkable. No enlarged lymph nodes. Urinary bladder: Unremarkable as visualized. Reproductive: Unremarkable as visualized. Bones/joints: No acute fracture. Soft tissues: Unremarkable. CT/CT abdomen pelvis w con* [id number] IMPRESSION: 1. Prominent fluid-filled proximal duodenum. This finding is nonspecific and could be incidental. Additional considerations include an enteritis or possibly sequela of SMA syndrome given somewhat acute angulation of the SMA and given the prominence is centered within the 1st through 3rd segments. 2. A couple punctate nonobstructing stones noted in the right kidney.
[2021-12-07] MEDS: iohexol 350 mg/mL 100 mL Btl IV (20:33)
[2021-12-07] MEDS: diphenhydrAMINE 50 mg/mL SDV 1mL 25 MG IVP (20:46)
[2021-12-07] MEDS: metoclopramide 5 mg/mL SDV 2 mL IVP (20:46)
[2021-12-07 22:20] VITALS: BP 116/69; PULSE 64; RESP 17; TEMP 36.4; O2SAT 97
[2021-12-07] MEDS: haloperidol inj 5 mg/mL INJ 1 mL IVP (22:38)
[2021-12-07 23:35] VITALS: BP 117/68; PULSE 65; RESP 17; TEMP 36.9; O2SAT 98
== END 2021-12-07 23:36 | disposition home or self-care (01) ==
PROVIDERS: Family Medicine; Emergency Provider Nurse Practitioner Family; PCP Family Medicine
DX: K52.9 Noninfective gastroenteritis and colitis, unspecified (principal)
CPT/HCPCS: 74018; 74177; 80053; 81003; 83690; 85025; 96361; 96374; 96375; 99285; J1200; J1630; J2270; J2405; J2765; J7030; Q9967

== ENCOUNTER → 2021-12-24 14:38 | Outpatient (BNVA) | payer MEDICAID, SELFPAY | PROVIDERS: PCP Family Medicine; Visit Provider Registered Nurse Neonatal Intensive Care | DX: J02.9 Acute pharyngitis, unspecified (principal); R09.82 Postnasal drip | CPT/HCPCS: 87071; 87880 ==

== ENCOUNTER 2021-12-29 08:08 | Outpatient (CLI) | payer MEDICAID, SELFPAY | END 2021-12-29 08:09 | disposition home or self-care (01) | PROVIDERS: PCP Family Medicine; Visit Provider Family Medicine | DX: R06.00 Dyspnea, unspecified (principal) | CPT/HCPCS: 94010 ==

== ENCOUNTER 2021-12-30 20:31 | Emergency (ER) | payer OTHER, MEDICAID, SELFPAY ==
[2021-12-30 20:39] VITALS: BP 127/78; PULSE 72; RESP 20; TEMP 36.7; O2SAT 98; BMI 21.2
--- NOTE | 2021-12-30 20:46 | XRR_ITS ---
PROCEDURE INFORMATION: Exam: XR Chest Exam date and time: 12/30/2021 9:11 PM Age: 36 years old Clinical indication: Angina pectoris and chest pressure and chest wall pain; Additional info: Cp TECHNIQUE: Imaging protocol: Radiologic exam of the chest. Views: 1 view. COMPARISON: CR XR chest 2V* [id number] 12/06/2021 4:28 PM FINDINGS: Lungs: Lungs are clear bilaterally. Pleural spaces: No pleural effusion. No pneumothorax. Heart/Mediastinum: The cardiac silhouette and mediastinal contours are unremarkable. Bones/joints: Unremarkable for age. XR/XR chest 1V portable [id number] IMPRESSION: Negative chest radiograph.
--- NOTE | 2021-12-30 20:46 | ECG_ITS ---
[facility] Test Date: 2021-12-30 Pat Name: Shawn Espinoza Department: Room: Gender: Male Pass Worker: : 1985 Requested By: Denisa Wesley Order Number: [id number] Tone MD: Ryan Randall M.D. Measurements Intervals Walsh Rate: 106 P: 63 TX: 192 QRS: -51 QRSD: 100 T: 73 QT: 355 QTc: 473 Interpretive Statements SINUS TACHYCARDIA PATTERN CONSISTENT WITH PULMONARY DISEASE LEFT ANTERIOR FASCICULAR BLOCK [QRS AXIS <= -45, QR IN I, RS IN II] Compared to ECG 09/02/2021 01:18:31 Left anterior fascicular block now present Sinus rhythm no longer present T-wave abnormality no longer present Electronically Signed On 12-31-2021 6:23:55 EXPERIMENTAL ASSEMBLER by Ryan Randall M.D. [email or web address]
[2021-12-30 22:42] LABS: Basophils % 0.2 %; Eosinophils # 0.1 10^3/uL (0.0-0.8); Eosinophils % 1.3 %; Hematocrit 47.5 % (42.0-52.0); Hemoglobin 15.7 g/dL (11.7-16.6); Lymphocytes # 2.9 10^3/uL (0.8-4.8); Lymphocytes % 29.5 %; Mean Corpuscular HGB Conc 33.1 g/dL (30.0-36.0); Mean Corpuscular Hemoglobin 29.1 pg (28.0-34.0); Mean Platelet Volume 8.8 fL (7.4-10.4); Monocytes # 0.9 10^3/uL (0.2-0.9); Monocytes % 8.8 %; Neutrophils # 5.82 10^3/uL (1.8-7.7); Nucleated Red Blood Cells % 0 %; Platelet Count 239 10^3/cmm (130-400); White Blood Count 9.7 10^3/uL (4.0-10.0)
[2021-12-30 23:04] LABS: Troponin(5th) Baseline 6 ng/L (0-15)
[2021-12-30 23:11] LABS: Alanine Aminotransferase 12 U/L (0-41); Albumin Level 4.8 g/dL (3.5-5.2); Alkaline Phosphatase 95 U/L (40-130); Anion Gap 14.5 (5-19); Aspartate Amino Transferase 16 U/L (0-40); Blood Urea Nitrogen 23 mg/dL (6-20); Calcium 10.4 mg/dL (8.5-10.5); Carbon Dioxide 28 mmol/L (22-29); Chloride 100 mmol/L (98-107); Globulin 2.4 g/dL (1.3-4.6); Glomerular Filtration Rate 75.7 mL/min (90-130); Glucose 98 mg/dL (65-115); NT Pro B Type Natriuretic Pept 13 pg/mL (0-125); Osmolality Calculated 292 mOsm/kg (285-295); Potassium 3.5 mmol/L (3.5-5.1); Sodium 139 mmol/L (136-145); Total Bilirubin 0.6 mg/dL (0.15-1.2); Total Protein 7.2 g/dL (6.6-8.7)
[2021-12-30 23:58] LABS: D Dimer <= 0.27 ug/mIFEU (0-0.59)
--- NOTE | 2021-12-31 00:04 | ED_ITS ---
HPI - Chest Pain General: Chief Complaint: Chest Pain Stated Complaint: Chest Pain\SOB\Pain Upper Back\Left Arm Pain Time Seen by Provider: 12/30/21 23:05 Source: patient Mode of arrival: ambulatory Limitations: no limitations History of Present Illness: 36-year-old male who states that he has had chest pain throughout the last day states it is in his right upper chest is very sharp in nature worse with deep inspiration he denies any cough denies any fever states the pain has been constant. He denies any injuries Associated symptoms: Deny abdominal pain, dyspnea, fever(s), nausea or vomiting Review of Systems Const: Denies: fever(s), chills, body aches or change in appetite Eyes: Denies: blurry vision or eye discomfort ENMT: Denies: throat pain or dental pain Card: Reports: chest pain Resp: Denies: dyspnea GI: Denies: abdominal pain, nausea, vomiting or diarrhea : Denies: dysuria Musc: Denies: neck pain or back pain Skin/Breast: Denies: rash Neuro: Denies: headache(s) Psych: Denies: depression Mikel/Lymph: Denies: easy bruising All/Imm: Denies: urticaria PFSH ED PFSH: Medical History Allergic rhinitis due to allergen Anxiety No significant past medical history Surgical History No significant past surgical history Social History Smoking and tobacco status: former smoker (quit about 2 months ago) Physical Exam Const: COMMON NORMALS: no acute distress, patient oriented x3 and healthy appearing HENMT: COMMON NORMALS: normocephalic and atraumatic HEAD & SCALP: no rmocephalic and atraumatic Eye: COMMON NORMALS: Equal, round and reactive pupils present and EOMs intact bilaterally PUPIL: Yes Equal, round and reactive pupils present Neck/C-Spine: COMMON NORMALS: full ROM and supple Chest: COMMONS NORMALS: normal inspection of the chest and normal palpation of entire chest wall Resp: COMMON NORMALS: normal respiratory effort, No retractions, No use of accessory muscles and clear to auscultation bilaterally AUSCULTATION: clear to auscultation bilaterally Cardio: COMMON NORMALS: regular rate, regular rhythm and No murmurs present (Cardio) RATE: regular rate RHYTHM: regular rhythm GI: COMMON NORMALS: Normal to inspection, nondistended, normoactive bowel sounds present, Soft to palpation, non-tender and no masses PALPATION: Yes Soft to palpation Extremity: COMMON NORMALS: normal to inspection and full ROM Neuro: COMMON NORMALS: patient oriented x3, moves all extremities and no focal motor deficits Psych: COMMON NORMALS: mental status grossly normal, Normal thought process present and cooperative THOUGHT PROCESS: Normal thought process present Skin: COMMON NORMALS: no rashes or lesions noted and no wounds GENERAL SKIN EXAM: no rashes or lesions noted Course Vital Signs: Vital signs: Vital Signs Temperature 98.1 F 12/30/21 20:39 Pulse Rate 50 L 12/31/21 00:34 Respiratory Rate 16 12/31/21 00:34 Blood Pressure 106/71 12/31/21 00:34 Pulse Oximetry 96 12/31/21 00:34 Oxygen Delivery Me thod 12/30/21 20:39 MDM - Chest Pain Medical Decision Making Patient presents here with chest pain that atypical in nature his troponins D- dimer negative he has no signs of acute coronary syndrome he is stable for discharge he is to follow-up with PCP and return if worsening. Lab Data 12/30/21 22:32 12/30/21 22:32 Radiology Impressions Chest X-Ray 12/30/21 20:46 IMPRESSION: Negative chest radiograph. Laboratory Results WBC 9.7 10^3/uL (4.0-10.0) 12/30/21 22:32 RBC 5.40 10^6/uL (4.1-5.3) H 12/30/21 22:32 Hgb 15.7 g/dL (11.7-16.6) 12/30/21 22:32 Hct 47.5 % (42.0-52.0) 12/30/21 22:32 MCV 88.0 fl (80-94) 12/30/21 22:32 MCH 29.1 pg (28.0-34.0) 12/30/21 22:32 MCHC 33.1 g/dL (30.0-36.0) 12/30/21 22:32 RDW 12.0 % (12.1-15.1) L 12/30/21: Plt Count 239 10^3/cmm (130-400) 12/30/21: MPV 8.8 fL (7.4-10.4) 12/30/21 22: Neut % (Auto) 60.0 % 12/30/21: Lymph % (Auto) 29.5 % 12/30/21: [place] % (Auto) 8.8 % 12/30/21: Eos % (Auto) 1.3 % 12/30/21: Baso % (Auto) 0.2 % 12/30/21: Neut # (Auto) 5.82 10^3/uL (1.8-7.7) 12/30/21: Lymph # (Auto) 2.9 10^3/uL (0.8-4.8) 12/30/21: [place] # (Auto) 0.9 10^3/uL (0.2-0.9) 12/30/21: Eos # (Auto) 0.1 10^3/uL (0.0-0.8) 12/30/21: Baso # (Auto) 0.0 10^3/uL (0.0-0.1) 12/30/21: Nucleated RBC % (auto) 0 % 12/30/21: Nucleated RBCs # 0.0 /100WBC 12/30/21: D-Dimer <= 0.27 ug/mIFEU (0-0.59) 12/30/21 22: Sodium 139 mmol/L (136-145) 12/30/21 22: Potassium 3.5 mmol/L (3.5-5.1) 12/30/21 22: Chloride 100 mmol/L (98-107) 12/30/21: Carbon Dioxide 28 mmol/L (22-29) 12/30/21: Anion Gap 14.5 (5-19) 12/30/21 22: BUN 23 mg/dL (6-20) H 12/30/21 22: Creatinine 1.1 mg/dL (0.7-1.2) 12/30/21:32 GFR Calculation 75.7 mL/min (90-130) L 12/30/21 22:32 Glucose 98 mg/dL (65-115) 12/30/21 22:32 Calculated Osmolality 292 mOsm/kg (285-295) 12/30/21 22:32 Calcium 10.4 mg/dL (8.5-10.5) 12/30/21 22:32 Total Bilirubin 0.6 mg/dL (0.15-1.2) 12/30/21 22:32 AST 16 U/L (0-40) 12/30/21 22:32 ALT 12 U/L (0-41) 12/30/21 22:32 Alkaline Phosphatase 95 U/L (40-130) 12/30/21 22:32 Troponin T Baseline 6 ng/L (0-15) 12/30/21 22:32 Troponin T 120 Minute 6.00 ng/L (0-15) 12/31/21 00:00 Delta Troponin T 0 ABS# (0-10) 12/31/21 00:00 NT-Pro-B Natriuret Pep 13 pg/mL (0-125) 12/30/21 22:32 Total Protein 7.2 g/dL (6.6-8.7) 12/30/21 22:32 Albumin 4.8 g/dL (3.5-5.2) 12/30/21 22:32 Globulin 2.4 g/dL (1.3-4.6) 12/30/21 22:32 EKG Data EKG 1: I personally reviewed and interpreted this EKG as follows: EKG interpretation date: 12/31/21 EKG interpretation time: 20:44 Interpretation: Normal sinus rhythm heart rate [address] or T wave realities caress 80 QTc 378 Discharge Plan Discharge Patient Disposition: Home Clinical Impression: Chest pain Condition: Stable Prescriptions: New Naprosyn 500 mg tablet 500 mg PO BID PRN (Reason: pain) Qty: 20 0RF No Action fluticasone propionate [Flonase Allergy Relief] 50 mcg/actuation spray,suspension 1 spray intranasal DAILY Qty: 16 0RF Rx Instructions: administer into each nostril ipratropium bromide 18 mcg/actuation aerosol 1 puff inhalation QID omeprazole 40 mg capsule,delayed release(DR/EC) 40 mg PO DAILY dextromethorphan-guaifenesin 20-400 mg tablet 1 tab PO Q6H PRN (Reason: cough) Qty: 20 0RF fexofenadine [Amie Allergy] 180 mg tablet 180 mg PO DAILY Qty: 30 0RF Discharge Orders: Discharge ED (Routine); Ordered 12/31/21 Ordered By: Denisa Wesley Referrals: Johny Funes MD [Primary Care Provider] - 1-3 days Discharge Diet: Advance as tolerated Discharge Activity: Resume usual activity Patient Instructions: Chest Pain (ED) Coding Level of Care Code ED High Speed Operator for Chg Fwd Exam Comprehensive
[2021-12-31] MEDS: ketorolac 30 mg/mL INJ 15 MG IVP (00:05)
[2021-12-31 00:34] VITALS: BP 106/71; PULSE 50; RESP 16; O2SAT 96
[2021-12-31 00:34] LABS: Troponin 5 2HR Delta 0 ABS# (0-10)
[2021-12-31 00:54] VITALS: BP 112/72; PULSE 55; RESP 16; O2SAT 99
== END 2021-12-31 00:47 | disposition home or self-care (01) ==
PROVIDERS: Emergency Provider Emergency Medicine; PCP Family Medicine
DX: R07.9 Chest pain, unspecified (principal)
CPT/HCPCS: 71045; 80053; 83880; 84484; 85025; 85378; 93005; 96374; 99285; J1885

== ENCOUNTER 2022-01-09 16:19 | Emergency (ER) | payer OTHER, MEDICAID, SELFPAY ==
[2022-01-09 16:24] VITALS: BP 117/79; PULSE 87; RESP 16; TEMP 36.9; O2SAT 99
--- NOTE | 2022-01-09 16:32 | W.ED.GENADLT ---
HPI - General Adult General: Chief complaint: Airway/Esophagus Foreign Body Stated complaint: something in his throat that hurts Time Seen by Provider: 01/09/22 16:31 History of Present Illness: Mr. Espinoza is a 36-year-old gentleman presenting to the emergency department due to concern over esophageal foreign body. He reports just prior to arrival eating a piece of meat and thinks that there was a bone in it that got stuck in his throat. He immediately had pain which has persisted and is worse with swallowing. No issues breathing and patient is able to tolerate liquids. Intensity symptoms is moderate. Denies similar episodes in the past. No other specific changes in health, exacerbating, or alleviating factors identified. Onset (ago): minute(s) Location: neck Severity: moderate Quality: stabbing and sharp Pain Consistency: constant Relieving factors: none Exacerbating factors: eating and other Associated symptoms: Reports no associated symptoms Review of Systems General: Reports: 10 or more systems reviewed and unremarkable except in HPI and below PFSH ED PFSH: Medical History Allergic rhinitis due to allergen Anxiety No significant past medical history Surgical History No significant past surgical history Social History Smoking and tobacco status: former smoker (quit about 2 months ago) Physical Exam Const: COMMON NORMALS: alert GENERAL APPEARANCE: cooperative and well developed HENMT: COMMON NORMALS: normocephalic and atraumatic HEAD & SCALP: normocephalic and atraumatic THROAT: posterior oropharynx normal OTHER: Tonsils appear normal, 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 Uvula is and nonedematous. Eye: COMMON NORMALS: conjunctivae normal CONJUNCTIVA: Yes conjunctivae normal SCLERA: sclerae normal Neck/C-Spine: COMMON NORMALS: supple GENERAL: Yes trachea midline Resp: COMMON NORMALS: normal respiratory effort and clear to auscultation bilaterally EFFORT & INSPECTION: Yes able to speak in complete sentences AUSCULTATION: clear to auscultation bilaterally Cardio: COMMON NORMALS: regular rate and regular rhythm RATE: regular rate RHYTHM: regular rhythm GI: COMMON NORMALS: Soft to palpation PALPATION: Yes Soft to palpation and No Tenderness to palpation present (GI) Extremity: GENERAL: Yes normal exam except as noted and No edema Neuro: COMMON NORMALS: moves all extremities SENSORIUM/ORIENTATION: Yes alert and No Orientation impaired Psych: COMMON NORMALS: mental status grossly normal and Normal thought process present THOUGHT PROCESS: Normal thought process present Course Vital Signs: Vital signs: Vital Signs Temperature 98.4 F 01/09/22 16:24 Pulse Rate 87 01/09/22 16:24 Respiratory Rate 16 01/09/22 16:24 Blood Pressure 117/79 01/09/22 16:24 Pulse Oximetry 99 01/09/22 16:24 Oxygen Delivery Me thod 01/09/22 16:24 [facility] - General Adult Medical Decision Making 36-year-old gentleman presenting with concern over esophageal foreign body. No evidence of acute airway compromise and patient is nontoxic in appearance. CT without evidence of foreign body or mass lesion. Strep negative. Patient improved with analgesia and steroids. Most likely cause of patient's symptoms is abrasion of the esophagus. The results of ED evaluation were discussed with the patient including prescriptions and/or symptomatic cares (if applicable) including appropriate and responsible use, followup plan, and return precautions. The patient verbalized understanding and felt safe for discharge. Medical Records I reviewed the patient's medical records. Lab Data I reviewed the patient's lab results. Radiology Impressions Neck CT 01/09/22 16:45 IMPRESSION: 1. No radiopaque foreign body in the oropharynx, hypopharynx, or upper esophagus. 2. No acute abnormality of the cervical soft tissues. 3. Incidental/nonacute findings are listed in the report. Laboratory Results Group A Strep Rapid Negative (Negative) 01/09/22 17:50 Discharge Plan Discharge Patient Disposition: Home Clinical Impression: Globus sensation, Esophageal abrasion Condition: Stable Prescriptions: New oxycodone 5 mg tablet 5 mg PO Q4H PRN (Reason: pain) Qty: 3 0RF No Action fluticasone propionate [Flonase Allergy Relief] 50 mcg/actuation spray,suspension 1 spray intranasal DAILY Qty: 16 0RF Rx Instructions: administer into each nostril ipratropium bromide 18 mcg/actuation aerosol 1 puff inhalation QID omeprazole 40 mg capsule,delayed release(DR/EC) 40 mg PO DAILY dextromethorphan-guaifenesin 20-400 mg tablet 1 tab PO Q6H PRN (Reason: cough) Qty: 20 0RF fexofenadine [Amie Allergy] 180 mg tablet 180 mg PO DAILY Qty: 30 0RF Naprosyn 500 mg tablet 500 mg PO BID PRN (Reason: pain) Qty: 20 0RF Discharge Orders: Discharge ED (Routine); Ordered 01/09/22 Ordered By: Gus Brennan Referrals: Johny Funes MD [Primary Care Provider] - Discharge Diet: Advance as tolerated and Clear Liquid Discharge Activity: Increase activity as tolerated Patient Instructions: Esophagitis (ED), Opioid Safety, Pain Management Activity Restrictions/Additional Instructions: Thank you for visiting the emergency department. You were seen and evaluated for throat pain with concern over stuck foreign body. No bone foreign body was identified on CT. The most likely cause of your symptoms is related to esophageal abrasion. The treatment for this is supportive. You may use [id number] medications such as acetaminophen and ibuprofen for pain however please do not exceed the daily recommended dosage as listed on the packaging and please keep in mind that many namebrand medications contain the same active ingredients. Please follow-up with a primary care provider. Return to the emergency department as needed. Coding Level of Care Code ED Surgical Instruments Inspector for Craig Lyons
--- NOTE | 2022-01-09 16:45 | CTR_ITS ---
PROCEDURE INFORMATION: Exam: CT Neck Without Contrast Exam date and time: 01/09/2022 4:50 PM Age: 36 years old Clinical indication: Painful swallowing; Additional info: Gilford bone May be stuck in throat TECHNIQUE: Imaging protocol: Computed tomography of the neck without contrast. Radiation optimization: All CT scans at this facility use at least one of these dose optimization techniques: automated exposure control; mA and/or kV adjustment per patient size (includes targeted exams where dose is matched to clinical indication); or iterative reconstruction. COMPARISON: CR (CHEST, ) 12/30/2021 9:11 PM RADIATION DOSE METRICS: Total DLP (mGy-cm): 243.43 FINDINGS: Limitations: Evaluation is limited without intravenous contrast. Orbital cavities: Globes and lenses, extraocular muscles, and optic nerves are intact bilaterally. No acute intraorbital abnormality. Mastoid air cells: Mastoid air cells are clear bilaterally. Paranasal sinuses: Visualized paranasal sinuses are clear. Nasal cavity: Mild left nasal septal deviation. Theresa bullosa of the right middle turbinate. Pharynx: Unremarkable. No significant tonsillar enlargement. No radiopaque foreign body in the oropharynx or hypopharynx. Larynx: The larynx is unremarkable. The epiglottis is unremarkable. Prevertebral and retropharyngeal spaces: Unremarkable. Salivary glands: Normal. Glands are normal in size. Thyroid: The thyroid gland is unremarkable. Lymph nodes: No lymphadenopathy. Trachea: Trachea is midline and patent. Lungs: Visualized lungs are clear. Esophagus: No radiopaque foreign body in the visualized upper esophagus. Bones/joints: No acute fracture. No dislocation. Soft tissues: No soft tissue swelling. No radiopaque foreign body. CT/CT neck con [id number] IMPRESSION: 1. No radiopaque foreign body in the oropharynx, hypopharynx, or upper esophagus. 2. No acute abnormality of the cervical soft tissues. 3. Incidental/nonacute findings are listed in the report.
[2022-01-09 18:17] LABS: Rapid Strep A Test Negative (Negative)
[2022-01-09] MEDS: morphine 4 mg/mL SDV 1 mL IM (18:37)
[2022-01-09] MEDS: dexamethasone 10 mg/mL INJ IM (18:37)
== END 2022-01-09 18:45 | disposition home or self-care (01) ==
PROVIDERS: Emergency Provider Emergency Medicine; PCP Family Medicine
DX: R09.89 Other specified symptoms and signs involving the circulatory and respiratory systems (principal); S27.818A Other injury of esophagus (thoracic part), initial encounter; X58.XXXA Exposure to other specified factors, initial encounter
CPT/HCPCS: 70490; 87081; 87880; 96372; 99285; J1100; J2270

== ENCOUNTER 2022-03-24 10:16 | Emergency (ER) | payer OTHER, MEDICAID, SELFPAY ==
[2022-03-24 10:19] VITALS: BP 114/71; PULSE 67; RESP 18; TEMP 36.8; O2SAT 99
--- NOTE | 2022-03-24 11:13 | XRR_ITS ---
PROCEDURE INFORMATION: Exam: XR Chest Exam date and time: 03/24/2022 11:52 AM Age: 36 years old Clinical indication: Patient HX: 36-year-old male presents emergency room complaining of upper chest pain for the last week it is worse with palpation has not noticed anything else exacerbates or relieves it no associated nausea vomiting no shortness of breath. He denies any cough no fever sweats chills known previous history of chronic respiratory illness or coronary artery disease or arrhythmias; Additional info: Dyspnea/cough TECHNIQUE: Imaging protocol: Radiologic exam of the chest. Views: 1 view. COMPARISON: CR XR chest 1V portable [id number] 12/30/2021 9:11 PM FINDINGS: Lungs: Unremarkable. No consolidation. Pleural spaces: Unremarkable. No pleural effusion. No pneumothorax. Heart/Mediastinum: Unremarkable. No cardiomegaly. Bones/joints: Unremarkable. XR/XR chest 1V portable [id number] IMPRESSION: No acute findings.
--- NOTE | 2022-03-24 11:26 | W.ED.CHESTPA ---
HPI - Chest Pain General: Chief Complaint: Chest Pain Stated Complaint: SOB, chest pain Time Seen by Provider: 03/24/22 11:09 Source: patient Mode of arrival: ambulatory History of Present Illness: 36-year-old male presents emergency room complaining of upper chest pain for the last week it is worse with palpation has not noticed anything else exacerbates or relieves it no associated nausea vomiting no shortness of breath. He denies any cough no fever sweats chills known previous history of chronic respiratory illness or coronary artery disease or arrhythmias MD complaint: chest pain Onset (ago): week(s) (1) Pain location: left chest Pain radiation: none Severity: mild Quality: sharp Relieving factors: nothing Exacerbating factors: palpation Associated symptoms: Deny abdominal pain, diaphoresis, dyspnea, fever(s), leg edema, nausea, palpitations, sense of impending doom, syncope or vomiting Treatment prior to arrival: none Review of Systems Const: Denies: fever(s), chills, fatigue, malaise or diaphoresis ENMT: Denies: throat pain, ear or mastoid pain, nasal discharge or nasal congestion Card: Reports: chest pain; Denies: palpitations, irregular heart rhythm, edema or syncope Resp: Denies: dyspnea, productive cough, non-productive cough or wheezing GI: Denies: abdominal pain, nausea or vomiting : Denies: flank pain, dysuria, urinary frequency or urinary urgency Skin/Breast: Denies: rash or pruritus [facility] ED PFSH: Medical History Allergic rhinitis due to allergen Anxiety No significant past medical history Surgical History No significant past surgical history Social History Smoking and tobacco status: former smoker (quit about 2 months ago) Physical Exam Const: GENERAL APPEARANCE: cooperative and comfortable ORIENTATION/CONSCIOUSNESS: Yes awake, Yes oriented to person, Yes oriented to place and Yes oriented to time HENMT: COMMON NORMALS: normocephalic, atraumatic and hearing grossly normal bilaterally HEAD & SCALP: normocephalic and atraumatic Resp: COMMON NORMALS: normal respiratory effort, No retractions, No use of accessory muscles and clear to auscultation bilaterally AUSCULTATION: clear to auscultation bilaterally Cardio: COMMON NORMALS: regular rate, regular rhythm and No murmurs present (Cardio) RATE: regular rate RHYTHM: regular rhythm GI: COMMON NORMALS: Soft to palpation and No hepatosplenomegaly present AUSCULTATION: Yes normoactive bowel sounds PALPATION: Yes Soft to palpation, No Tenderness to palpation present (GI), No Guarding due to palpation present (GI) and Yes No hepatosplenomegaly present Extremity: COMMON NORMALS: normal to inspection, capillary refill normal, no clubbing, cyanosis or edema, no calf tenderness and no pedal edema Neuro: SENSORIUM/ORIENTATION: Yes oriented to person, Yes oriented to place and Yes oriented to time Skin: COMMON NORMALS: no rashes or lesions noted GENERAL SKIN EXAM: no rashes or lesions noted Course Vital Signs: Vital signs: Vital Signs Temperature 98.3 F 03/24/22 10:19 Pulse Rate 67 03/24/22 10:19 Respiratory Rate 18 03/24/22 10:19 Blood Pressure 114/71 03/24/22 10:19 Pulse Oximetry 99 03/24/22 10:19 Oxygen Delivery Me thod 03/24/22 10:19 MDM - Chest Pain Medical Decision Making Labs imaging and EKG reviewed. Chest x-ray unremarkable EKG does not show any acute changes early repole but no acute ST elevation cardiac enzymes are negative he had symptoms for over a week and chest pain is reproducible chest pain nothing on chest x-ray suggestive of pneumothorax or pneumonia no evidence of widened mediastinum suggesting aortic aneurysm He has no signs or symptoms of a PE at this time cardiac enzymes are negative we will go ahead and discharge patient home have him follow-up with his primary care physician Medical Records I reviewed the patient's medical records. Lab Data I reviewed the patient's lab results. 03/24/22 11:34 03/24/22 11:34 Radiology Impressions Chest X-Ray 03/24/22 11:13 IMPRESSION: No acute findings. Laboratory Results WBC 6.7 10^3/uL (4.0-10.0) 03/24/22 11:34 RBC 5.41 10^6/uL (4.1-5.3) H 03/24/22 11:34 Hgb 15.6 g/dL (11.7-16.6) 03/24/22 11:34 Hct 47.6 % (42.0-52.0) 03/24/22 11:34 MCV 88.0 fl (80-94) 03/24/22 11:34 MCH 28.8 pg (28.0-34.0) 03/24/22 11:34 MCHC 32.8 g/dL (30.0-36.0) 03/24/22 11:34 RDW 12.0 % (12.1-15.1) L 03/24/22 11:34 Plt Count 236 10^3/cmm (130-400) 03/24/22 11:34 MPV 9.1 fL (7.4-10.4) 03/24/22 11:34 Neut % (Auto) 61.4 % 03/24/22 11:34 Lymph % (Auto) 26.9 % 03/24/22 11:34 [place] % (Auto) 9.8 % 03/24/22 11:34 Eos % (Auto) 1.3 % 03/24/22 11:34 Baso % (Auto) 0.3 % 03/24/22 11:34 Neut # (Auto) 4.13 10^3/uL (1.8-7.7) 03/24/22 11:34 Lymph # (Auto) 1.8 10^3/uL (0.8-4.8) 03/24/22 11:34 [place] # (Auto) 0.7 10^3/uL (0.2-0.9) 03/24/22 11:34 Eos # (Auto) 0.1 10^3/uL (0.0-0.8) 03/24/22 11:34 Baso # (Auto) 0.0 10^3/uL (0.0-0.1) 03/24/22 11:34 Nucleated RBC % (auto) 0 % 03/24/22 11:34 Nucleated RBCs # 0.0 /100WBC 03/24/22 11:34 Sodium 141 mmol/L (136-145) 03/24/22 11:34 Potassium 4.3 mmol/L (3.5-5.1) 03/24/22 11:34 Chloride 104 mmol/L (98-107) 03/24/22 11:34 Carbon Dioxide 29 mmol/L (22-29) 03/24/22 11:34 Anion Gap 12.3 (5-19) 03/24/22 11:34 BUN 10 mg/dL (6-20) 03/24/22 11:34 Creatinine 0.8 mg/dL (0.7-1.2) 03/24/22 11:34 GFR Calculation 109.4 mL/min (90-130) 03/24/22 11:34 Glucose 104 mg/dL (65-115) 03/24/22 11:34 Calculated Osmolality 291 mOsm/kg (285-295) 03/24/22 11:34 Calcium 9.4 mg/dL (8.5-10.5) 03/24/22 11:34 Total Bilirubin 0.5 mg/dL (0.15-1.2) 03/24/22 11:34 AST 19 U/L (0-40) 03/24/22 11:34 ALT 16 U/L (0-41) 03/24/22 11:34 Alkaline Phosphatase 109 U/L (40-130) 03/24/22 11:34 Troponin T Baseline 6 ng/L (0-15) 03/24/22 11:34 Total Protein 6.9 g/dL (6.6-8.7) 03/24/22 11:34 Albumin 4.7 g/dL (3.5-5.2) 03/24/22 11:34 Globulin 2.2 g/dL (1.3-4.6) 03/24/22 11:34 Discharge Plan Discharge Patient Disposition: Home Clinical Impression: Anterior chest wall pain Condition: Stable Prescriptions: New diclofenac sodium 75 mg tablet,delayed release (DR/EC) 75 mg PO Q12H PRN (Reason: pain) Qty: 20 0RF No Action omeprazole 40 mg capsule,delayed release(DR/EC) 40 mg PO DAILY dextromethorphan-guaifenesin 20-400 mg tablet 1 tab PO Q6H PRN (Reason: cough) Qty: 20 0RF hydroxyzine HCl 25 mg tablet 25 mg PO QID PRN (Reason: Itching) Atrovent HFA 17 mcg/actuation HFA aerosol inhaler 2 puff INHALATION Q6H PRN (Reason: Shortness Of Breath Or Wheezing) Men's Daily Formula 400-20-300 mcg Tablet 1 tab PO DAILY fluticasone propionate [Flonase Allergy Relief] 50 mcg/actuation spray,suspension 1 spray intranasal DAILY PRN (Reason: Allergy Symptoms) Rx Instructions: administer into each nostril Discharge Orders: Discharge ED (Routine); Ordered 03/24/22 Ordered By: Aguilar Larsen Referrals: Johny Funes MD [Primary Care Provider] - Patient Instructions: Opioid Safety, Pain Management Activity Restrictions/Additional Instructions: You were seen today for chest pain. Your chest pain is reproducible with palpation. Chest x-ray cardiac enzymes and laboratory work were all normal. Follow-up with your primary care doctor as needed. Coding Level of Care Code ED Electrotyper Apprentice for Craig Lyons
--- NOTE | 2022-03-24 11:35 | ECG_ITS ---
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 Measurements Intervals [place] Rate: 67 P: 78 [place]: 179 QRS: 77 QRSD: 84 T: 47 QT: 361 QTc: 381 Interpretive Statements SINUS RHYTHM POSSIBLE LEFT ATRIAL ENLARGEMENT [-0.1mV P-WAVE IN V1/V2] POSSIBLE RIGHT VENTRICULAR CONDUCTION DELAY [RSR (QR) IN V1/V2] ST ELEVATION, PROBABLY EARLY REPOLARIZATION [ST ELEVATION WITH NORMALLY INFLECTED T-WAVE] MODERATE ST DEPRESSION [0.05+ mV ST DEPRESSION] Compared to ECG 12/30/2021 19:06:28 ST (T wave) deviation now present Early repolarization now present Sinus tachycardia no longer present Left anterior fascicular block no longer present Electronically Signed On 03-25-2022 7:56:58 WASHER [employer]CASS by Cristina Abbott M.D. [email or web address]
[2022-03-24 12:02] LABS: Basophils % 0.3 %; Eosinophils # 0.1 10^3/uL (0.0-0.8); Eosinophils % 1.3 %; Hematocrit 47.6 % (42.0-52.0); Hemoglobin 15.6 g/dL (11.7-16.6); Lymphocytes # 1.8 10^3/uL (0.8-4.8); Lymphocytes % 26.9 %; Mean Corpuscular HGB Conc 32.8 g/dL (30.0-36.0); Mean Corpuscular Hemoglobin 28.8 pg (28.0-34.0); Mean Platelet Volume 9.1 fL (7.4-10.4); Monocytes # 0.7 10^3/uL (0.2-0.9); Monocytes % 9.8 %; Neutrophils # 4.13 10^3/uL (1.8-7.7); Neutrophils % 61.4 %; Nucleated Red Blood Cells % 0 %; Platelet Count 236 10^3/cmm (130-400); Red Blood Count 5.41 10^6/uL (4.1-5.3); White Blood Count 6.7 10^3/uL (4.0-10.0)
[2022-03-24 12:22] LABS: Alanine Aminotransferase 16 U/L (0-41); Albumin Level 4.7 g/dL (3.5-5.2); Alkaline Phosphatase 109 U/L (40-130); Anion Gap 12.3 (5-19); Aspartate Amino Transferase 19 U/L (0-40); Blood Urea Nitrogen 10 mg/dL (6-20); Calcium 9.4 mg/dL (8.5-10.5); Carbon Dioxide 29 mmol/L (22-29); Chloride 104 mmol/L (98-107); Globulin 2.2 g/dL (1.3-4.6); Glomerular Filtration Rate 109.4 mL/min (90-130); Glucose 104 mg/dL (65-115); Osmolality Calculated 291 mOsm/kg (285-295); Potassium 4.3 mmol/L (3.5-5.1); Sodium 141 mmol/L (136-145); Total Bilirubin 0.5 mg/dL (0.15-1.2); Total Protein 6.9 g/dL (6.6-8.7)
[2022-03-24 12:25] LABS: Troponin(5th) Baseline 6 ng/L (0-15)
== END 2022-03-24 12:53 | disposition home or self-care (01) ==
PROVIDERS: Emergency Provider Family Medicine; PCP Family Medicine
DX: R07.89 Other chest pain (principal); Z87.891 Personal history of nicotine dependence
CPT/HCPCS: 36415; 71045; 80053; 84484; 85025; 93005; 99285

== ENCOUNTER → 2022-03-28 12:53 | Outpatient (BNVA) | payer OTHER, MEDICAID, SELFPAY | PROVIDERS: PCP Family Medicine; Visit Provider Internal Medicine Pulmonary Disease | DX: R06.02 Shortness of breath (principal); R06.09 Other forms of dyspnea; J30.9 Allergic rhinitis, unspecified; F41.9 Anxiety disorder, unspecified; Z87.891 Personal history of nicotine dependence | CPT/HCPCS: 36415; 82785; 86003 ==

== ENCOUNTER 2022-06-13 17:43 | Emergency (ER) | payer MEDICAID, SELFPAY ==
[2022-06-13 17:54] VITALS: BP 134/77; PULSE 84; RESP 16; TEMP 36.6; O2SAT 98; BMI 22.9
--- NOTE | 2022-06-13 17:57 | ED_ITS ---
HPI - Animal Bite General: Chief Complaint: Animal Bite Stated Complaint: dog bite left leg Time Seen by Provider: 06/13/22 17:57 History of Present Illness: 36-year-old male patient comes in today for complaints of injury to the posterior left upper leg. 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 Patient appears nontoxic. Patient moves leg without difficulty. Patient believes tetanus shot is up-to-date. Patient states that the agency owner of the dog reported that immunizations were up-to-date and gave him documentation verifying it. Patient wanted evaluation and to ensure that nothing else was wrong. Associated symptoms: Deny fever(s) Review of Systems Const: Denies: fever(s) Card: Denies: chest pain Resp: Denies: dyspnea GI: Denies: nausea or vomiting Musc: Reports: extremity pain Skin/Breast: Reports: new lesions PFS ED PFSH: Medical History Allergic rhinitis due to allergen Anxiety No significant past medical history Surgical History No significant past surgical history Social History Smoking and tobacco status: former smoker (quit about 2 months ago) Quit status (tobacco): has quit using tobacco Year quit tobacco: 2021 Former quit date comment: 1 ppd X 16 years Physical Exam Const: COMMON NORMALS: alert HENMT: COMMON NORMALS: normocephalic HEAD & SCALP: normocephalic Neck/C-Spine: COMMON NORMALS: full ROM Resp: COMMON NORMALS: normal respiratory effort Cardio: COMMON NORMALS: regular rate RATE: regular rate Back/Pelvis: COMMON NORMALS: thoracic and lumbar spine normal to inspection Extremity: LEFT LOWER EXTREMITY: Yes upper leg (Puncture wound with surrounding bruising to the posterior leg) Left upper leg: Yes inspection, Yes palpation and Yes neurovascular exam Neuro: SENSORIUM/ORIENTATION: Yes alert Skin: TRAUMA: puncture (Single puncture wound with minimal erythema and ecchymosis right upper leg) Course Vital Signs: Vital signs: Vital Signs Temperature 97.8 F 06/13/22 17:54 Pulse Rate 84 06/13/22 17:54 Respiratory Rate 16 06/13/22 17:54 Blood Pressure 134/77 06/13/22 17:54 Pulse Oximetry 98 06/13/22 17:54 Oxygen Delivery Me thod Room Air 06/13/22 17:54 MDM - Animal Bite Medical Decision Making 36-year-old male patient comes in today with complaints of injury to the right upper leg. On exam patient moves extremities well. Distal pulses and sensation are intact. There is a puncture wound to the posterior right upper leg with surrounding erythema and bruising that is approximately 1 cm. No other injuries are noted. Patient is weightbearing without difficulty. No foreign body is palpated. Differential diagnosis includes but not limited to retained soft tissue foreign body, puncture wound, need for prophylaxis antibiotic. 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 Did not recommend rabies vaccine at this time. Recommend Augmentin for prophylaxis antibiotic therapy. X-ray was performed with no sign of foreign body visualized. Patient reported understanding of care plan and need for follow-up or return to the ER. Discharge Plan Discharge Patient Disposition: Home Clinical Impression: Dog bite Qualifiers: Encounter type: initial encounter Qualified Code(s): W54.0XXA - Bitten by dog, initial encounter Condition: Stable Prescriptions: New clindamycin HCl 300 mg capsule 300 mg PO TID 7 Days Qty: 21 0RF No Action omeprazole 40 mg capsule,delayed release(DR/EC) 40 mg PO DAILY ondansetron HCl 4 mg tablet 4 mg PO Q6H PRN levalbuterol tartrate [Xopenex HFA] 45 mcg/actuation HFA aerosol inhaler 2 inh inhalation Q6H PRN (Reason: shortness of breath or wheezing) Qty: 15 3RF montelukast [Singulair] 10 mg tablet 10 mg PO DAILY Qty: 30 3RF fluticasone propionate [Flovent HFA] 110 mcg/actuation HFA aerosol inhaler 2 puff inhalation BID Qty: 12 11RF hydroxyzine HCl 25 mg tablet 25 mg PO QID PRN (Reason: Itching) Atrovent HFA 17 mcg/actuation HFA aerosol inhaler 2 puff INHALATION Q6H PRN (Reason: Shortness Of Breath Or Wheezing) Men's Daily Formula 400-20-300 mcg Tablet 1 tab PO DAILY fluticasone propionate [Flonase Allergy Relief] 50 mcg/actuation spray,whyte spension 1 spray intranasal DAILY PRN (Reason: Allergy Symptoms) Rx Instructions: administer into each nostril diclofenac sodium 75 mg tablet,delayed release (DR/EC) 75 mg PO Q12H PRN (Reason: pain) Qty: 20 0RF Discharge Orders: Discharge ED (Routine); Ordered 06/13/22 Ordered By: Dante Amaro Referrals: Johny Funes MD [Primary Care Provider] - Discharge Diet: Usual diet Discharge Activity: Increase activity as tolerated Patient Instructions: Puncture Wound (ED) Activity Restrictions/Additional Instructions: Home and rest. Use acetaminophen and ibuprofen for pain. Take antibiotic as directed for the next 7 days. Follow-up with primary care as needed. Return to ED for worsening symptoms such as fever greater than 100.4, increasing redness and swelling around the wound, or new concerns. Coding Level of Care Code ED Research Program Internship for Craig Lyons
--- NOTE | 2022-06-13 18:02 | XRR_ITS ---
PROCEDURE INFORMATION: Exam: XR Left Femur Exam date and time: 06/13/2022 6:13 PM Age: 36 years old Clinical indication: Injury or trauma; Other: Dog bite; Other: Bite wound; Additional info: R/O foreign body TECHNIQUE: Imaging protocol: Radiologic exam of the left femur. Views: 2 views. COMPARISON: No relevant prior studies available. FINDINGS: Bones/joints: Unremarkable. No acute fracture. Soft tissues: Unremarkable. XR/XR femur LT min 2V* [id number] IMPRESSION: No acute findings.
[2022-06-13] MEDS: clindamycin 150 mg Capsule 300 MG PO (18:14)
== END 2022-06-13 18:50 | disposition home or self-care (01) ==
PROVIDERS: Emergency Provider Nurse Practitioner Family; PCP Family Medicine
DX: S71.151A Open bite, right thigh, initial encounter (principal); W54.0XXA Bitten by dog, initial encounter; Z87.891 Personal history of nicotine dependence
CPT/HCPCS: 73552; 99283

== ENCOUNTER 2022-12-27 14:04 | Outpatient (CLI) | payer MEDICAID, SELFPAY ==
--- NOTE | 2022-12-27 14:18 | XR_ITS ---
WS: [id number] Exam: XR elbow RT min 3V* [id number] Date/Time of Exam: 12/27/2022 2:18 PM Reason For Exam: R ELBOW JOINT PAIN/R LATERAL EPICONDYLITIS Findings: There are no fractures, soft tissue swelling, or calcifications. The elbow shows normal bony alignme nt. There is no irregularity of the bony architecture. IMPRESSION: Negative RIGHT elbow.
== END 2022-12-27 14:05 | disposition home or self-care (01) ==
PROVIDERS: PCP Family Medicine; Visit Provider Family Medicine
DX: M25.521 Pain in right elbow (principal)
CPT/HCPCS: 73080

== ENCOUNTER 2023-03-08 07:59 | Outpatient (CLI) | payer MEDICAID, SELFPAY ==
--- NOTE | 2023-03-08 08:00 | MR_ITS ---
WS: [id number] MRI RIGHT ELBOW WITHOUT CONTRAST. COMPARISON: Radiograph 12/27/2022 Multiplanar, multisequence imaging is performed without contrast. History: RIGHT elbow pain for 1 year. No fracture or marrow edema. No dislocation. No joint effusion. The distal triceps tendon is normal. Marker is placed along the posterior lateral elbow in the area of pain. There is no abnormality ident ified in this location. No abnormality within the muscle or bone. This is a very limited evaluation o f the ulnar and radial collateral ligaments. Quality is suboptimal. No obvious abnormality identified . IMPRESSION: Negative MRI RIGHT elbow.
== END 2023-03-08 08:00 | disposition home or self-care (01) ==
LOC: RAD 07:59
PROVIDERS: PCP Family Medicine; Visit Provider Specialist
DX: M77.01 Medial epicondylitis, right elbow (principal)
CPT/HCPCS: 73221

== ENCOUNTER 2023-03-08 09:07 | Emergency (ER) | payer MEDICAID, SELFPAY ==
--- NOTE | 2023-03-08 09:11 | ECG_ITS ---
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 Measurements Intervals [place] Rate: 72 P: 72 NC: 168 QRS: 60 QRSD: 81 T: 58 QT: 346 QTc: 380 Interpretive Statements SINUS RHYTHM POSSIBLE LEFT ATRIAL ENLARGEMENT [-0.1mV P-WAVE IN V1/V2] POSSIBLE RIGHT VENTRICULAR CONDUCTION DELAY [RSR (QR) IN V1/V2] Compared to ECG 03/24/2022 11:35:32 ST (T wave) deviation no longer present Early repolarization no longer present Electronically Signed On 03-08-2023 21:37:52 BOLT MAN by Constantino Lara M.D. [id number]
--- NOTE | 2023-03-08 09:11 | XR_ITS ---
WS: [id number] XR chest 1V portable [id number] REASON FOR EXAM: dyspnea/cough FINDINGS: The chest is unchanged compared to 11/02/2022. The heart and the mediastinum are within normal limits. Calcified granulomas disease in both hemithoraces. No active pulmonary parenchymal or pleural disease is noted. The bony thorax is intact without significant focal abnormality. IMPRESSION: No acute chest abnormality.
--- NOTE | 2023-03-08 09:11 | W.ED.CHESTPA ---
HPI - Chest Pain General: Chief Complaint: Chest Pain Stated Complaint: sob, chest pains Time Seen by Provider: 03/08/23 09:09 Source: patient Mode of arrival: ambulatory History of Present Illness: 37-year-old male presents emergency room complaining of chest pain and shortness of breath when he woke up this morning. He does have some mild asthma he is a former smoker he quit several years ago. He did use his albuterol did not think it helped too much morning he has a history of reflux as well. He denies any fever sweats chills or productive cough no hemoptysis. MD complaint: chest pain Onset (ago): hour(s) Timing of current episode: episodic Pain location: substernal Pain radiation: none Relieving factors: nothing Exacerbating factors: nothing Associated symptoms: Reports dyspnea; Deny abdominal pain, diaphoresis, fever(s), leg edema, nausea, palpitations, sense of impending doom, syncope or vomiting Treatment prior to arrival: none Review of Systems Const: Denies: fever(s), chills or diaphoresis Card: Reports: chest pain; Denies: palpitations or syncope Resp: Reports: dyspnea, non-productive cough and wheezing GI: Denies: abdominal pain, nausea or vomiting : Denies: dysuria, urinary frequency or urinary urgency Musc: Denies: neck pain or back pain Skin/Breast: Denies: rash [facility] ED PFSH: Medical History Anxiety Allergic rhinitis due to allergen No significant past medical history Surgical History No significant past surgical history Social History Smoking and tobacco/nicotine status: former use of tobacco/nicotine (quit about 2 months ago) Quit status (tobacco/nicotine): has quit using Year quit tobacco: 2021 Former quit date comment: 1 ppd X 16 years Course Vital Signs: Vital signs: Vital Signs Temperature 98.7 F 03/08/23 09:14 Pulse Rate 88 03/08/23 11:16 Respiratory Rate 16 03/08/23 09:59 Blood Pressure 114/68 03/08/23 11:16 Pulse Oximetry 95 03/08/23 11:16 Oxygen Delivery Me thod Room Air 03/08/23 09:59 MDM - Chest Pain Medical Decision Making Labs imaging EKG reviewed chest x-ray is no acute changes EKG is no acute ST elevation or changes. Patient's symptoms are atypical at this time. Suggest adding Protonix 40 twice daily for 14 days then daily after that recheck if is worsening or change symptoms if persisting may need to have further evaluation including possible EGD Medical Records I reviewed the patient's medical records. Lab Data I reviewed the patient's lab results. 03/08/23 09:26 03/08/23 09:26 Laboratory Results WBC 6.21 10^3/uL (3.29-11.43) 03/08/23 09: RBC 5.21 10^6/uL (3.85-5.65) 03/08/23 09: Hgb 14.70 g/dL (11.27-16.99) 03/08/23 09:26 Hct 43.6 % (37-53) 03/08/23 09: MCV 83.7 fl (82-101) 03/08/23 09: MCH 28.2 pg (27-33) 03/08/23 09: MCHC 33.7 g/dL (30-55) 03/08/23 09:26 RDW 12.3 % (12.1-15.1) 03/08/23 09:26 Plt Count 268 10^3/cmm (157-399) 03/08/23 09:26 MPV 8.6 fL (7.4-10.4) 03/08/23 09:26 Neut % (Auto) 53.4 % 03/08/23 09:26 Lymph % (Auto) 34.9 % 03/08/23 09:26 Vernon % (Auto) 8.9 % 03/08/23 09:26 Eos % (Auto) 2.3 % 03/08/23 09: Baso % (Auto) 0.2 % 03/08/23 09:26 Neut # (Auto) 3.32 10^3/uL (1.8-7.7) 03/08/23 09: Lymph # (Auto) 2.2 10^3/uL (0.8-4.8) 03/08/23 09:26 Vernon # (Auto) 0.6 10^3/uL (0.2-0.9) 03/08/23 09:26 Eos # (Auto) 0.1 10^3/uL (0.0-0.8) 03/08/23 09:26 Baso # (Auto) 0.0 10^3/uL (0.0-0.1) 03/08/23 09:26 Nucleated RBC % (auto) 0 % 03/08/23 09: Nucleated RBCs # 0.0 /100WBC 03/08/23 09:26 Sodium 139 mmol/L (136-145) 03/08/23 09:26 Potassium 4.0 mmol/L (3.5-5.1) 03/08/23 09: Chloride 107 mmol/L (98-107) 03/08/23 09: Carbon Dioxide 20 mmol/L (22-29) L 03/08/23 09:26 Anion Gap 16.0 (5-19) 03/08/23 09:26 BUN 10 mg/dL (6-20) 03/08/23 09:26 Creatinine 1.0 mg/dL (0.7-1.2) 03/08/23 09:26 GFR Calculation 84.1 mL/min (90-130) L 03/08/23 09:26 Glucose 126 mg/dL (65-115) H 03/08/23 09:26 Calculated Osmolality 289 mOsm/kg (285-295) 03/08/23 09: Calcium 9.0 mg/dL (8.5-10.5) 03/08/23 09:26 Total Bilirubin 0.3 mg/dL (0.15-1.2) 03/08/23 09:26 AST 11 U/L (0-40) 03/08/23 09:26 ALT 10 U/L (0-41) 03/08/23 09:26 Alkaline Phosphatase 96 U/L (40-130) 03/08/23 09: Troponin T Baseline < 6 ng/L (0-15) 03/08/23 09:26 Total Protein 6.7 g/dL (6.6-8.7) 03/08/23 09:26 Albumin 4.0 g/dL (3.5-5.2) 03/08/23 09:26 Globulin 2.7 g/dL (1.3-4.6) 03/08/23 09:26 All radiology interpretation(s) finalized by discharge Discharge Plan Discharge Patient Disposition: Home Clinical Impression: Atypical chest pain, Gastroesophageal reflux disease Condition: Stable Prescriptions: New Protonix 40 mg tablet,delayed release (DR/EC) 40 mg PO BID 14 Days Qty: 45 0RF Rx Instructions: Twice daily x 15 days then daily Discontinued omeprazole 40 mg capsule,delayed release(DR/EC) 40 mg PO BID No Action levocetirizine 5 mg tablet 5 mg PO DAILY ondansetron HCl 4 mg tablet 4 mg PO Q6H PRN levalbuterol tartrate [Xopenex HFA] 45 mcg/actuation HFA aerosol inhaler 2 inh inhalation Q6H PRN (Reason: shortness of breath or wheezing) Qty: 15 3RF azelastine 137 mcg (0.1 %) aerosol,spray 1 spray intranasal BID Rx Instructions: administer into each nostril fluticasone propion-salmeterol [Advair HFA] 115-21 mcg/actuation HFA aerosol inhaler 2 puff inhalation BID Qty: 12 3RF levalbuterol HCl 0.63 mg/3 mL solution for nebulization 0.63 mg inhalation TID PRN (Reason: shortness of breath or wheezing) Qty: 90 6RF montelukast [Singulair] 10 mg tablet 10 mg PO DAILY Qty: 30 3RF ipratropium bromide 0.02 % solution 2.5 ml inhalation Q6H PRN (Reason: shortness of breath or wheezing) Qty: 150 6RF hydroxyzine HCl 25 mg tablet 25 mg PO QID PRN (Reason: Itching) Men's Daily Formula 400-20-300 mcg Tablet 1 tab PO DAILY fluticasone propionate [Flonase Allergy Relief] 50 mcg/actuation spray,suspension 1 spray intranasal DAILY PRN (Reason: Allergy Symptoms) Rx Instructions: administer into each nostril Discharge Orders: Discharge ED (Routine); Ordered 03/08/23 Ordered By: Aguilar Larsen Referrals: Johny Funes MD [Primary Care Provider] - Discharge Diet: Usual diet Discharge Activity: Increase activity as tolerated Patient Instructions: Opioid Safety, Pain Management Coding Level of Care Code ED Director Clinical Research for [facility]
[2023-03-08 09:14] VITALS: BP 109/79; PULSE 83; RESP 16; TEMP 37.1; O2SAT 99; BMI 24.4
[2023-03-08 09:35] VITALS: BP 114/79; PULSE 64; O2SAT 96
[2023-03-08 09:42] LABS: Basophils % 0.2 %; Eosinophils # 0.1 10^3/uL (0.0-0.8); Eosinophils % 2.3 %; Hematocrit 43.6 % (37-53); Lymphocytes # 2.2 10^3/uL (0.8-4.8); Lymphocytes % 34.9 %; Mean Corpuscular HGB Conc 33.7 g/dL (30-55); Mean Corpuscular Hemoglobin 28.2 pg (27-33); Mean Corpuscular Volume 83.7 fl (82-101); Mean Platelet Volume 8.6 fL (7.4-10.4); Monocytes # 0.6 10^3/uL (0.2-0.9); Monocytes % 8.9 %; Neutrophils # 3.32 10^3/uL (1.8-7.7); Neutrophils % 53.4 %; Nucleated Red Blood Cells % 0 %; Platelet Count 268 10^3/cmm (157-399); Red Blood Count 5.21 10^6/uL (3.85-5.65); Red Cell Distribution Width 12.3 % (12.1-15.1); White Blood Count 6.21 10^3/uL (3.29-11.43)
[2023-03-08 09:59] VITALS: PULSE 70; RESP 16; O2SAT 96
[2023-03-08 09:59] LABS: Alanine Aminotransferase 10 U/L (0-41); Alkaline Phosphatase 96 U/L (40-130); Aspartate Amino Transferase 11 U/L (0-40); Blood Urea Nitrogen 10 mg/dL (6-20); Carbon Dioxide 20 mmol/L (22-29); Chloride 107 mmol/L (98-107); Globulin 2.7 g/dL (1.3-4.6); Glomerular Filtration Rate 84.1 mL/min (90-130); Glucose 126 mg/dL (65-115); Osmolality Calculated 289 mOsm/kg (285-295); Sodium 139 mmol/L (136-145); Total Bilirubin 0.3 mg/dL (0.15-1.2); Total Protein 6.7 g/dL (6.6-8.7); Troponin(5th) Baseline < 6 ng/L (0-15)
[2023-03-08] MEDS: ipratropium-albuterol 3 mL Neb INHALATION (09:59)
[2023-03-08 10:01] VITALS: PULSE 70
--- NOTE | 2023-03-08 11:11 | ECG_ITS ---
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 Measurements Intervals [place] Rate: 73 P: 56 [place]: 176 QRS: 46 QRSD: 85 T: 32 QT: 356 QTc: 394 Interpretive Statements SINUS RHYTHM Possible left atrial enlargement Compared to ECG 03/08/2023 09:12:10 No significant changes Electronically Signed On 03-08-2023 21:44:10 NURSE SANE by Constantino Lara M.D. [id number]
[2023-03-08 11:16] VITALS: BP 114/68; PULSE 88; O2SAT 95
== END 2023-03-08 11:10 | disposition home or self-care (01) ==
PROVIDERS: Emergency Provider Family Medicine; PCP Family Medicine
DX: R07.89 Other chest pain (principal); K21.9 Gastro-esophageal reflux disease without esophagitis; Z87.891 Personal history of nicotine dependence
CPT/HCPCS: 71045; 80053; 84484; 85025; 93005; 94640; 99285

== ENCOUNTER → 2023-04-02 12:00 | Outpatient (BNVA) | payer MEDICAID, SELFPAY | PROVIDERS: PCP Family Medicine; Visit Provider Emergency Medicine | DX: J02.9 Acute pharyngitis, unspecified (principal); R05.9 Cough, unspecified | CPT/HCPCS: 87071; 87400; 87880 ==

== ENCOUNTER 2023-04-05 11:17 | Day surgery (SDC) | payer MEDICAID, SELFPAY ==
[2023-04-05 11:31] VITALS: BP 126/75; PULSE 74; RESP 18; TEMP 36.2; O2SAT 96
[2023-04-05] MEDS: sodium chloride 0.9% 1,000 ML 30 ML IV (11:48)
--- NOTE | 2023-04-05 12:11 | ANES.PREANE2 ---
Pre-Anesthetic Assessment Height/Weight: Height 1.83 m Weight 79.832 kg Temp Pulse Resp BP Pulse Ox O2 Del Method 97.1 F L 74 18 126/75 96 Room Air 04/05/23 11:04/05/23 11:04/05/23 11:31 04/05/23 11:31 04/05/23 11:31 04/05/23 11:31 Operation Date: 04/05/23 12:15 Proposed Procedures p 02151 EGD Dilation w/ Balloon,K21.9,R13.10(Not Applicable) - Shawn Bailey, DO Was Beta Penny taken within 24 hours: N/A Was Clonidine taken within 24 hours: N/A Last intake: Intake Last Liquid Date 04/04/23 Last Liquid Time 23:45 Last Solid Date 04/04/23 Last Solid Time 19:00 Last Intake: 22:00 Exam alert, oriented x 3, clear to auscultation bilaterally and regular rate & rhythm Airway Submandibular: within normal limits Cervical ROM: within normal limits Mallampati: Class II History/ROS No significant history except as noted Pulmonary Asthma CV/HEM None reported None reported Hepatic None reported GI None reported Metabolic None reported Musc/skel None reported Neuropsych None reported Anesthetic Plan ASA status: 2 Anesthesia: MAC Risk of > 500 ml blood loss (7ml/kg in children): Yes, adequate IV access and fluids planned Medications/Allergies Home Medications Medication Instructions Recorded Confirmed Last Taken Type fluticasone propionate 50 1 spray intranasal DAILY PRN 03/24/22 04/03/23 04/05/23 History mcg/actuation nasal Allergy Symptoms spray,suspension (Flonase Allergy Relief) hydroxyzine HCl 25 mg tablet 25 mg PO QID PRN Itching 03/24/22 04/03/23 04/03/23 History levalbuterol tartrate 45 2 inh inhalation Q6H PRN shortness 03/28/22 04/03/23 04/03/23 Rx mcg/actuation aerosol inhaler of breath or wheezing #15 grams (Xopenex HFA) ondansetron HCl 4 mg tablet 4 mg PO Q6H PRN Nausea 03/28/22 04/03/23 Unknown History montelukast 10 mg tablet 10 mg PO DAILY #30 tabs 03/30/22 04/03/23 04/03/23 Rx (Singulair) levocetirizine 5 mg tablet 5 mg PO DAILY 06/22/22 04/03/23 04/03/23 History azelastine 137 mcg (0.1 %) nasal 1 spray intranasal BID 10/24/22 04/03/23 04/05/23 History spray aerosol levalbuterol HCl 0.63 mg/3 mL 0.63 mg (3 mL) inhalation TID PRN 10/24/22 04/03/23 Unknown Rx solution for nebulization shortness of breath or wheezing #90 mL ipratropium bromide 0.02 % 2.5 ml inhalation Q6H PRN 11/02/22 04/03/23 Unknown Rx solution for inhalation shortness of breath or wheezing #150 mL azithromycin 500 mg tablet 500 mg PO DAILY 5 days #9 tabs 04/02/23 04/03/23 04/03/23 Rx pantoprazole 20 mg tablet,delayed 20 mg PO BID 04/03/23 04/03/23 04/03/23 History release (Protonix) Allergies Allergy/AdvReac Type Severity Reaction Status Date / Time albuterol Allergy Intermediate ADR-Shakine Verified 04/02/23 11:52 ss prednisone Allergy Intermediate ADR-Shakine Verified 04/02/23 11:52 ss Penicillins Allergy ALGY-Rash Verified 04/02/23 11:52 Current Medications Generic Name Dose Route Start Last Admin Trade Name Freq PRN Reason Stop Dose Admin Sodium Chloride 1,000 mls @ 30 mls/hr 04/05/23 11:30 04/05/23 11:48 Sodium Chloride 0.9% IV 04/06/23 11:29 30 mls/hr .Q24H LAVONNE Administration PFSH Anesthesia Medical History Anxiety Allergic rhinitis due to allergen No significant past medical history Surgical History History of appendectomy Hx laparoscopic cholecystectomy No significant past surgical history Social History Smoking and tobacco/nicotine status: former use of tobacco/nicotine (quit about 2 months ago) Quit status (tobacco/nicotine): has quit using Year quit tobacco: 2021 Former quit date comment: 1 ppd X 16 years Data Anesthesia Cardiac Studies: No Data to Display
--- NOTE | 2023-04-05 12:19 | W.PM.OPSUD ---
Surgery/Procedure H&P Update DATE OF PROCEDURE: April 05, 2023 DATE H&P PERFORMED: 03/14/23 H&P UPDATE INFORMATION: I have reviewed H&P completed within last 30 days, I have examined patient prior to procedure and No changes to prior documentation PLANNED PROCEDURE: Operation Date: 04/05/23 12:15 Proposed Procedures p 36772 EGD Dilation w/ Balloon,K21.9,R13.10(Not Applicable) - Shawn Bailey,
[2023-04-05 12:32] VITALS: BP 103/62; PULSE 70; RESP 18; TEMP 36.1; O2SAT 100
[2023-04-05 12:43] VITALS: BP 107/74; PULSE 70; RESP 18; O2SAT 98
[2023-04-05 12:50] VITALS: BP 117/75; PULSE 63; RESP 18; O2SAT 66
[2023-04-05 13:03] VITALS: BP 111/79; PULSE 60; RESP 18; O2SAT 99
--- NOTE | 2023-04-05 13:25 | ANE.PACU2 ---
Inpatient post-anesthesia follow up: Airway intact: Yes Vital signs: Temperature 97.0 F Pulse Rate 60 Respiratory Rate 18 Blood Pressure 111/79 Pulse Oximetry 99 Oxygen Delivery Me thod Room Air Oxygen Flow Rate Fraction of Inspir ed Oxygen Hydration adequate: Yes Nausea and vomiting: No Pain level: 1 Mental status: Baseline
== END 2023-04-05 13:27 | disposition home or self-care (01) ==
PROVIDERS: PCP Family Medicine; Visit Provider Surgery
DX: R19.7 Diarrhea, unspecified (principal); K21.9 Gastro-esophageal reflux disease without esophagitis; R13.10 Dysphagia, unspecified; K29.50 Unspecified chronic gastritis without bleeding; F41.9 Anxiety disorder, unspecified; Z87.891 Personal history of nicotine dependence
CPT/HCPCS: 43239; 88305; 88342; J2704; J7030

== ENCOUNTER → 2023-04-24 13:15 | Outpatient (BNVA) | payer MEDICAID, SELFPAY | PROVIDERS: PCP Family Medicine; Visit Provider Nurse Practitioner | DX: M79.644 Pain in right finger(s) (principal) | CPT/HCPCS: 73130 ==

== ENCOUNTER 2023-04-26 01:10 | Emergency (ER) | payer MEDICAID, SELFPAY ==
--- NOTE | 2023-04-26 01:16 | CTR_ITS ---
PROCEDURE INFORMATION: Exam: CT Abdomen And Pelvis With Contrast Exam date and time: 04/26/2023 1:51 AM Age: 37 years old Clinical indication: Abdominal pain; Localized; Right lower quadrant (rlq); Prior surgery; Surgery date: 6+ months; Surgery type: Gb/appy; Additional info: Abd pain TECHNIQUE: Imaging protocol: Computed tomography of the abdomen and pelvis with contrast. Radiation optimization: All CT scans at this facility use at least one of these dose optimization techniques: automated exposure control; mA and/or kV adjustment per patient size (includes targeted exams where dose is matched to clinical indication); or iterative reconstruction. Contrast material: OMNI 350; Contrast volume: 100 ml; Contrast route: INTRAVENOUS (IV); COMPARISON: CT abdomen pelvis w con* [id number] 12/07/2021 8:27 PM RADIATION DOSE METRICS: Total DLP (mGy-cm): 516 FINDINGS: Lungs: Left posterior lower lobe 3 mm solid pulmonary nodule is noted (series 3, image 5). Heart: Base of heart is unremarkable as visualized. Liver: Scattered hepatic hypodensities too small to characterize by modality, statistically likely to represent benign etiology. Gallbladder and bile ducts: Status post cholecystectomy. Pancreas: Normal. No ductal dilation. Spleen: Sequela of granulomatous disease of the spleen. Adrenal glands: Normal. No mass. Kidneys and ureters: Nonobstructive right nephrolithiasis, midpole. Stomach and bowel: Mild scattered diverticulosis without evidence of diverticulitis. Thickening of the gastric fundus, without discrete mass. Appendix: Appendix is surgically absent. Intraperitoneal space: Unremarkable. No free air. No significant fluid collection. Vasculature: Multiple pelvic phleboliths are noted, unchanged. Lymph nodes: Unremarkable. No enlarged lymph nodes. Urinary bladder: Unremarkable as visualized. Reproductive: Unremarkable as visualized. Bones/joints: Unremarkable. No acute fracture. Soft tissues: Unremarkable. CT/CT abdomen pelvis w con* [id number] IMPRESSION: 1. Unchanged right nonobstructive nephrolithiasis. 2. Thickening of the gastric fundus, without discrete mass, correlate with symptoms of gastritis/reflux. 3. Single sub 4 mm solid left lower lobe nodule. For patients at low risk (minimal or absent history of smoking and of other known risk factors), no routine follow-up is indicated. For patients at high risk (history of smoking or of other known risk factors), consider optional CT Chest at 12 months. (Reference: Cassie) 4. Additional findings as above. REFERENCES: Cassie Curran, et al. Guidelines for Management of Incidental Pulmonary Nodules Detected on CT Images: From the Fleischner Society 2017. Radiology. 2017;284(1):228-243.
[2023-04-26 01:17] VITALS: BP 105/69; PULSE 63; RESP 16; TEMP 36.4; O2SAT 95
--- NOTE | 2023-04-26 01:29 | ED_ITS ---
HPI - Abdominal Pain 2 General: Chief Complaint: Abdominal Pain Stated Complaint: severe abd pain Time Seen by Provider: 04/26/23 01:14 History of Present Illness: 37-year-old male presents emergency depa rtment with complaints of lower abdominal pain that started approximately 2 weeks ago. He states he was seen by his primary care provider today and states that he was told that he would get a CT scan ordered for the patient. Patient states that his primary care provider told him that if the pain worsened to come to the emergency department to be seen and evaluated. Patient has had previous abdominal surgery and states he has had his appendix removed. He does have a well-healed surgical scar to his infraumbilical region. Patient states the pain when it does occur is a 4 out of 10 dull and aching and occurs around the umbilicus area. He denies nausea vomiting fevers chills or night sweats. He states nothing seems to make the pain better nothing seems to make the pain worse. He states he did have a normal bowel movement earlier today without difficulty. Associated Symptoms: Denies nausea and vomiting Review of Systems 2 General: Reports: 10 or more systems reviewed and unremarkable except in HPI and below GI: Reports: abdominal pain; Denies: nausea or vomiting PFSH ED 2 PFSH: Medical History Anxiety Allergic rhinitis due to allergen No significant past medical history Surgical History History of colonoscopy 04/05 History of appendectomy Hx laparoscopic cholecystectomy No significant past surgical history Social History Smoking and tobacco/nicotine status: former use of tobacco/nicotine (quit about 2 months ago) Quit status (tobacco/nicotine): has quit using Year quit tobacco: 2021 Former quit date comment: 1 ppd X 16 years 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 Vital signs as documented. No acute distress at present. Alert and oriented-to person, place, time and situation. Head, eyes, ears, nose, mouth, throat: Normocephalic, atraumatic. Pupils-equal, round, reactive to light. No scleral icterus. Normal-appearing external ears. Normal appearing nasal turbinates, no drainage. No obvious oral lesions, posterior oropharynx without erythema or exudates. Neck: Supple, trachea is midline, no lymphadenopathy, no jugular venous distension, thyromegaly, or carotid bruits. Carotid upstrokes are brisk bilaterally. Lungs: clear to auscultation to all lung tapia. Symmetrical rise and fall of chest, no obvious signs of increased work of breathing at present. Cardiac: Regular rate and rhythm, positive S1, S2. No murmurs, rubs or gallops that I can appreciate Abdomen: Soft, slightly tender to palpation to the infraumbilical region., normal active bowel sounds to all quadrants. No palpable masses, no organomegaly and abdominal bruits. Extremities: 2+ pulses in the upper extremities that are equal bilaterally, 2+ pulses in the lower extremities that are equal bilaterally. Non-edematous. Moves all extremities well, sensation to all extremities are noted. Skin: Warm, dry, intact. Course 2 Vital Signs: Vital signs: Vital Signs Temperature 97.6 F 04/26/23 01:17 Pulse Rate 53 L 04/26/23 04:05 Respiratory Rate 16 04/26/23 01:17 Blood Pressure 118/78 04/26/23 04:05 Pulse Oximetry 97 04/26/23 04:05 Oxygen Delivery Me thod Room Air 04/26/23 01:17 MDM - Abdominal Pain Medical Decision Making Physical exam completed and documented, I will obtain laboratory evaluation to include a CBC, CMP, lipase, urinalysis, and a CT scan of the patient's abdomen pelvis to evaluate for possible differential diagnosis of bowel obstruction, incarcerated hernia, abdominal wall strain, abdominal wall hematoma, constipation, colitis, acute appendicitis, diverticulitis. Medical Records I reviewed the patient's medical records. Lab Data I reviewed the patient's lab results. 04/26/23 01:40 04/26/23 01:40 Labs/Radiology: Radiology Impressions Abdomen/Pelvis CT 04/26/23 01:16 IMPRESSION: 1. Unchanged right nonobstructive nephrolithiasis. 2. Thickening of the gastric fundus, without discrete mass, correlate with symptoms of gastritis/reflux. 3. Single sub 4 mm solid left lower lobe nodule. For patients at low risk (minimal or absent history of smoking and of other known risk factors), no routine follow-up is indicated. For patients at high risk (history of smoking or of other known risk factors), consider optional CT Chest at 12 months. (Reference: Cassie) 4. Additional findings as above. REFERENCES: Cassie Curran, et al. Guidelines for Management of Incidental Pulmonary Nodules Detected on CT Images: From the Fleischner Society 2017. Radiology. 2017;284(1):228-243. Laboratory Results WBC 7.36 10^3/uL (3.29-11.43) 04/26/23 01:40 RBC 5.04 10^6/uL (3.85-5.65) 04/26/23 01:40 Hgb 14.50 g/dL (11.27-16.99) 04/26/23 01:40 Hct 42.7 % (37-53) 04/26/23 01:40 MCV 84.7 fl (82-101) 04/26/23 01:40 MCH 28.8 pg (27-33) 04/26/23 01:40 MCHC 34.0 g/dL (30-55) 04/26/23 01:40 RDW 12.5 % (12.1-15.1) 04/26/23 01:40 Plt Count 254 10^3/cmm (157-399) 04/26/23 01:40 MPV 8.9 fL (7.4-10.4) 04/26/23 01:40 Neut % (Auto) 52.7 % 04/26/23 01:40 Lymph % (Auto) 35.2 % 04/26/23 01:40 [place] % (Auto) 9.4 % 04/26/23 01:40 Eos % (Auto) 2.0 % 04/26/23 01:40 Baso % (Auto) 0.4 % 04/26/23 01:40 Neut # (Auto) 3.88 10^3/uL (1.8-7.7) 04/26/23 01:40 Lymph # (Auto) 2.6 10^3/uL (0.8-4.8) 04/26/23 01:40 [place] # (Auto) 0.7 10^3/uL (0.2-0.9) 04/26/23 01:40 Eos # (Auto) 0.2 10^3/uL (0.0-0.8) 04/26/23 01:40 Baso # (Auto) 0.0 10^3/uL (0.0-0.1) 04/26/23 01:40 Nucleated RBC % (auto) 0 % 04/26/23 01:40 Nucleated RBCs # 0.0 /100WBC 04/26/23 01:40 Sodium 139 mmol/L (136-145) 04/26/23 01:40 Potassium 3.8 mmol/L (3.5-5.1) 04/26/23 01:40 Chloride 103 mmol/L (98-107) 04/26/23 01:40 Carbon Dioxide 23 mmol/L (22-29) 04/26/23 01:40 Anion Gap 16.8 (5-19) 04/26/23 01:40 BUN 15 mg/dL (6-20) 04/26/23 01:40 Creatinine 1.0 mg/dL (0.7-1.2) 04/26/23 01:40 GFR Calculation 84.1 mL/min (90-130) L 04/26/23 01:40 Glucose 127 mg/dL (65-115) H 04/26/23 01:40 Calculated Osmolality 290 mOsm/kg (285-295) 04/26/23 01:40 Lactic Acid 2.0 mmol/L (0.5-2.2) 04/26/23 01:40 Calcium 8.7 mg/dL (8.5-10.5) 04/26/23 01:40 Total Bilirubin 0.4 mg/dL (0.15-1.2) 04/26/23 01:40 AST 16 U/L (0-40) 04/26/23 01:40 ALT 9 U/L (0-41) 04/26/23 01:40 Alkaline Phosphatase 109 U/L (40-130) 04/26/23 01:40 Total Protein 6.8 g/dL (6.6-8.7) 04/26/23 01:40 Albumin 4.1 g/dL (3.5-5.2) 04/26/23 01:40 Globulin 2.7 g/dL (1.3-4.6) 04/26/23 01:40 Lipase 25 U/L (13-60) 04/26/23 01:40 Procalcitonin 0.02 ng/mL (0-0.5) 04/26/23 01:40 Urine Color Yellow (Yellow) 04/26/23 02:01 Urine Appearance Clear (CLEAR) 04/26/23 02:01 Urine pH 6 (5-7) 04/26/23 02:01 Ur Specific Mittie 1.020 (1.005-1.030) 04/26/23 02:01 Urine Protein Neg (Negative) 04/26/23 02:01 Urine Glucose (UA) Norm (Normal) 04/26/23 02:01 Urine Ketones Negative (Negative) 04/26/23 02:01 Urine Blood Neg (Negative) 04/26/23 02:01 Urine Nitrate Negative (Negative) 04/26/23 02:01 Urine Bilirubin Neg (Negative) 04/26/23 02:01 Urine Urobilinogen Neg mg/dL (Negative) 04/26/23 02:01 Ur Leukocyte Esterase Negative (Negative) 04/26/23 02:01 All radiology interpretation(s) finalized by discharge Discharge Plan Discharge Patient Disposition: Home Clinical Impression: Abdominal wall strain, Abdominal wall pain Prescriptions: New hydrocodone-acetaminophen 5-325 mg tablet 1 tab PO Q8H PRN (Reason: pain) Qty: 14 0RF No Action levocetirizine 5 mg tablet 5 mg PO DAILY fluticasone propionate 110 mcg/actuation HFA aerosol inhaler 2 puff inhalation BID levalbuterol tartrate [Xopenex HFA] 45 mcg/actuation HFA aerosol inhaler 2 inh inhalation Q6H PRN (Reason: shortness of breath or wheezing) Qty: 15 6RF pantoprazole [Protonix] 40 mg tablet,delayed release (DR/EC) 40 mg PO DAILY 30 Days Qty: 30 12RF ondansetron HCl 4 mg tablet 4 mg PO Q6H PRN (Reason: Nausea) azelastine 137 mcg (0.1 %) aerosol,spray 1 spray intranasal BID Rx Instructions: administer into each nostril levalbuterol HCl 0.63 mg/3 mL solution for nebulization 0.63 mg inhalation TID PRN (Reason: shortness of breath or wheezing) Qty: 90 6RF montelukast [Singulair] 10 mg tablet 10 mg PO DAILY Qty: 30 3RF ipratropium bromide 0.02 % solution 2.5 ml inhalation Q6H PRN (Reason: shortness of breath or wheezing) Qty: 150 6RF hydroxyzine HCl 25 mg tablet 25 mg PO QID PRN (Reason: Itching) fluticasone propionate [Flonase Allergy Relief] 50 mcg/actuation spray,suspension 1 spray intranasal DAILY PRN (Reason: Allergy Symptoms) Rx Instructions: administer into each nostril Protonix 40 mg tablet,delayed release (DR/EC) 40 mg PO BID 42 Days Qty: 84 1RF Discharge Orders: Discharge ED (Routine); Ordered 04/26/23 Ordered By: Baljit Gunderson Referrals: Johny Funes MD [Primary Care Provider] - Discharge Diet: Usual diet Discharge Activity: Resume usual activity Patient Instructions: Abdominal Pain (ED), Opioid Safety, Pain Management Activity Restrictions/Additional Instructions: Activity Restrictions/Additional Instructions: Thank you for choosing [facility] for your healthcare needs today. Please realize that you were seen in the Emergency Department and that we are providing you with an emergency medical screening exam and this may not be a complete and all inclusive of all the testing and or medical work-up that you may need to determine your ailment or severity of your illness. It is very important that you follow-up as instructed with your Primary care provider or Specialist for additional evaluation and to discuss your medical treatment plan. Coding Level of Care Code ED Insights Strategist for Craig Lyons
[2023-04-26 01:51] LABS: Basophils % 0.4 %; Eosinophils # 0.2 10^3/uL (0.0-0.8); Hematocrit 42.7 % (37-53); Lymphocytes # 2.6 10^3/uL (0.8-4.8); Lymphocytes % 35.2 %; Mean Corpuscular Hemoglobin 28.8 pg (27-33); Mean Corpuscular Volume 84.7 fl (82-101); Mean Platelet Volume 8.9 fL (7.4-10.4); Monocytes # 0.7 10^3/uL (0.2-0.9); Monocytes % 9.4 %; Neutrophils # 3.88 10^3/uL (1.8-7.7); Neutrophils % 52.7 %; Nucleated Red Blood Cells % 0 %; Platelet Count 254 10^3/cmm (157-399); Red Blood Count 5.04 10^6/uL (3.85-5.65); Red Cell Distribution Width 12.5 % (12.1-15.1); White Blood Count 7.36 10^3/uL (3.29-11.43)
[2023-04-26] MEDS: iohexol 350 mg/mL 500 mL Btl (per mL) IV (01:52)
[2023-04-26 01:57] VITALS: BP 110/73; PULSE 62; O2SAT 94
[2023-04-26 02:06] LABS: Add Urine Microscopic? NO; Charge for UA Resulting for Rev
[2023-04-26 02:09] LABS: Bilirubin Urine Neg (Negative); Blood Urine Neg (Negative); Glucose Urine UA Norm (Normal); Ketones Urine Negative (Negative); Leukocyte Esterase Urine Negative (Negative); Nitrate Urine Negative (Negative); Protein Urine Neg (Negative); Urine Appearance Clear (CLEAR); Urine Color Yellow (Yellow); Urobilinogen Urine Neg (Negative); pH Urine 6 (5-7)
[2023-04-26 02:13] LABS: Alanine Aminotransferase 9 U/L (0-41); Albumin Level 4.1 g/dL (3.5-5.2); Alkaline Phosphatase 109 U/L (40-130); Anion Gap 16.8 (5-19); Aspartate Amino Transferase 16 U/L (0-40); Blood Urea Nitrogen 15 mg/dL (6-20); Calcium 8.7 mg/dL (8.5-10.5); Carbon Dioxide 23 mmol/L (22-29); Chloride 103 mmol/L (98-107); Globulin 2.7 g/dL (1.3-4.6); Glomerular Filtration Rate 84.1 mL/min (90-130); Glucose 127 mg/dL (65-115); Lipase 25 U/L (13-60); Osmolality Calculated 290 mOsm/kg (285-295); Potassium 3.8 mmol/L (3.5-5.1); Sodium 139 mmol/L (136-145); Total Bilirubin 0.4 mg/dL (0.15-1.2); Total Protein 6.8 g/dL (6.6-8.7)
[2023-04-26 02:18] LABS: Procalcitonin 0.02 ng/mL (0-0.5)
[2023-04-26 03:10] VITALS: BP 122/70; PULSE 59; O2SAT 97
[2023-04-26 04:05] VITALS: BP 118/78; PULSE 53; O2SAT 97
[2023-04-26 04:49] VITALS: BP 118/78; PULSE 56; RESP 18; O2SAT 98
== END 2023-04-26 04:53 | disposition home or self-care (01) ==
PROVIDERS: Emergency Provider Internal Medicine; PCP Family Medicine
DX: S39.011A Strain of muscle, fascia and tendon of abdomen, initial encounter (principal); Z87.891 Personal history of nicotine dependence; X58.XXXA Exposure to other specified factors, initial encounter
CPT/HCPCS: 74177; 80053; 81003; 83605; 83690; 84145; 85025; 99285; Q9967

== ENCOUNTER 2023-05-02 13:44 | Outpatient (CLI) | payer MEDICAID, SELFPAY ==
--- NOTE | 2023-05-02 13:58 | XR_ITS ---
WS: [id number] KUB, AP view, 05/02/2023 Clinical Data: RLQ ABDOMINAL PAIN Comparison: KUB, 12/07/2021 Findings: No abnormal intraabdominal masses or calcifications are seen. There is no dilatated small bowel or ev idence of obstruction. There is air in the small bowel colon. There are clips in the right upper quadrant from a cholecystec [place]. Impression: Mild generalized ileus.
== END 2023-05-02 13:45 | disposition home or self-care (01) ==
LOC: RAD 13:47
PROVIDERS: PCP Family Medicine; Visit Provider Family Medicine
DX: K56.7 Ileus, unspecified (principal)
CPT/HCPCS: 74018

== ENCOUNTER 2023-05-20 21:11 | Emergency (ER) | payer MEDICAID, SELFPAY ==
[2023-05-20 21:25] VITALS: BP 115/69; PULSE 69; RESP 14; TEMP 36.6; O2SAT 98
--- NOTE | 2023-05-20 21:59 | CTR_ITS ---
PROCEDURE INFORMATION: Exam: CT Abdomen And Pelvis With Contrast Exam date and time: 05/20/2023 10:25 PM Age: 37 years old Clinical indication: Abdominal pain; Prior surgery; Surgery date: 6+ months; Surgery type: Gb. Appy; Patient HX: Periumbilical pain with nausea; Additional info: Abd pain, R/O obstruction TECHNIQUE: Imaging protocol: Computed tomography of the abdomen and pelvis with contrast. Radiation optimization: All CT scans at this facility use at least one of these dose optimization techniques: automated exposure control; mA and/or kV adjustment per patient size (includes targeted exams where dose is matched to clinical indication); or iterative reconstruction. Contrast material: OMNI 350; Contrast volume: 100 ml; Contrast route: INTRAVENOUS (IV); COMPARISON: CT abdomen pelvis w con* [id number] 04/26/2023 1:51 AM RADIATION DOSE METRICS: Total DLP (mGy-cm): 432.58 FINDINGS: Lungs: The lung bases are clear. Heart: Heart size is within normal limits. There is no pericardial effusion or pericardial thickening. Liver: Hepatic low-density lesions too small to characterize though likely representing small cysts. Gallbladder and bile ducts: The gallbladder is surgically absent. There is no ductal dilatation. Pancreas: The pancreas is normal. Spleen: Calcified splenic granulomata are noted. The spleen is otherwise normal. Adrenal glands: The adrenal glands are normal. Kidneys and ureters: Punctate nonobstructing right lower pole renal calculi. Normal enhancement of the bilateral kidneys. No hydronephrosis. Stomach and bowel: There is no large or small bowel obstruction. There is no evidence of bowel wall thickening. Appendix: A normal appendix is not identified. There is no secondary evidence of acute appendicitis. Intraperitoneal space: No inflammatory changes are identified. There is no free fluid or fluid collection seen. There is no pneumoperitoneum. Vasculature: Atherosclerotic calcifications are present. No aneurysm is identified. Lymph nodes: There are no enlarged retroperitoneal or mesenteric lymph nodes. Urinary bladder: The bladder is unremarkable. Reproductive: There is mild prostatomegaly. Bones/joints: No acute osseous abnormalities are seen. Soft tissues: Small periumbilical hernia containing only fat. The soft tissues are otherwise within normal limits. CT/CT abdomen pelvis w con* [id number] IMPRESSION: 1. No acute intra-abdominal or pelvic process. 2. Other nonemergent findings above.
--- NOTE | 2023-05-20 22:15 | ED_ITS ---
HPI - Abdominal Pain 2 General: Chief Complaint: Abdominal Pain Stated Complaint: ABD Pain Time Seen by Provider: 05/20/23 21:59 History of Present Illness: 37-year-old male patient comes in today with complaints of rectal discomfort and change in stool. Patient reported a recent bout of constipation and since then he has not felt relief with bowel movements. Patient also reports some discomfort in the rectum. Patient appears nontoxic. Patient appears in no pain. Review of Systems 2 General: Reports: 10 or more systems reviewed and unremarkable except in HPI and below GI: Reports: abdominal pain and rectal pain PFSH ED 2 PFSH: Medical History Anxiety Allergic rhinitis due to allergen No significant past medical history Surgical History History of colonoscopy 04/05 History of appendectomy Hx laparoscopic cholecystectomy No significant past surgical history Social History Smoking and tobacco/nicotine status: former use of tobacco/nicotine (quit about 2 months ago) Quit status (tobacco/nicotine): has quit using Year quit tobacco: 2021 Former quit date comment: 1 ppd X 16 years 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 right 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 Physical Exam 2 Const: COMMON NORMALS: alert HENMT: COMMON NORMALS: normocephalic HEAD & SCALP: normocephalic Neck/C-Spine: COMMON NORMALS: full ROM Resp: COMMON NORMALS: normal respiratory effort Cardio: COMMON NORMALS: regular rate RATE: regular rate GI: COMMON NORMALS: Soft to palpation AUSCULTATION: Yes normoactive bowel sounds PALPATION: Yes Soft to palpation RECTAL EXAM: Yes visual inspection normal and Yes normal sphincter tone Extremity: COMMON NORMALS: normal to inspection Neuro: SENSORIUM/ORIENTATION: Yes alert Skin: COMMON NORMALS: turgor normal GENERAL SKIN EXAM: turgor normal Course 2 Vital Signs: Vital signs: Vital Signs Temperature 97.9 F 05/20/23 21:25 Pulse Rate 63 05/20/23 22:54 Respiratory Rate 16 05/20/23 22:54 Blood Pressure 113/81 05/20/23 22:54 Pulse Oximetry 100 05/20/23 22:54 Oxygen Delivery Me thod Room Air 05/20/23 22:54 MDM - Abdominal Pain Medical Decision Making 37-year-old male patient comes in today for complaints of rectal discomfort and abdominal pain with poor relief after bowel movements. Patient appears nontoxic. Abdomen soft with normal active bowel sounds. Rectal exam is unremarkable. Differential diagnosis includes hemorrhoids, IBS, colitis, bowel obstruction. CT of the abdomen pelvis was unremarkable. Laboratory values were normal. Patient may have a internal hemorrhoid no external hemorrhoids were noted. Will go ahead and put him on some Anusol HC suppositories in case there is an enlarged hemorrhoid there. Recommend strongly patient have a colonoscopy for further evaluation due to the discomfort and changes in stool. Case management was requested for follow-up appointment. Patient reports understanding and agrees to plan. Lab Data 05/20/23 22:12 05/20/23 22:12 Labs/Radiology: Radiology Impressions Abdomen/Pelvis CT 05/20/23 21:59 IMPRESSION: 1. No acute intra-abdominal or pelvic process. 2. Other nonemergent findings above. Laboratory Results WBC 7.00 10^3/uL (3.29-11.43) 05/20/23 22:12 RBC 5.01 10^6/uL (3.85-5.65) 05/20/23 22:12 Hgb 14.30 g/dL (11.27-16.99) 05/20/23 22:12 Hct 42.9 % (37-53) 05/20/23 22:12 MCV 85.6 fl (82-101) 05/20/23 22:12 MCH 28.5 pg (27-33) 05/20/23 22:12 MCHC 33.3 g/dL (30-55) 05/20/23 22:12 RDW 12.6 % (12.1-15.1) 05/20/23 22:12 Plt Count 229 10^3/cmm (157-399) 05/20/23 22:12 MPV 8.8 fL (7.4-10.4) 05/20/23 22:12 Neut % (Auto) 55.1 % 05/20/23 22:12 Lymph % (Auto) 31.7 % 05/20/23 22:12 [place] % (Auto) 10.9 % 05/20/23 22:12 Eos % (Auto) 1.9 % 05/20/23 22:12 Baso % (Auto) 0.3 % 05/20/23 22:12 Neut # (Auto) 3.86 10^3/uL (1.8-7.7) 05/20/23 22:12 Lymph # (Auto) 2.2 10^3/uL (0.8-4.8) 05/20/23 22:12 [place] # (Auto) 0.8 10^3/uL (0.2-0.9) 05/20/23 22:12 Eos # (Auto) 0.1 10^3/uL (0.0-0.8) 05/20/23 22:12 Baso # (Auto) 0.0 10^3/uL (0.0-0.1) 05/20/23 22:12 Nucleated RBC % (auto) 0 % 05/20/23 22:12 Nucleated RBCs # 0.0 /100WBC 05/20/23 22:12 Sodium 141 mmol/L (136-145) 05/20/23 22:12 Potassium 3.9 mmol/L (3.5-5.1) 05/20/23 22:12 Chloride 104 mmol/L (98-107) 05/20/23 22:12 Carbon Dioxide 26 mmol/L (22-29) 05/20/23 22:12 Anion Gap 14.9 (5-19) 05/20/23 22:12 BUN 11 mg/dL (6-20) 05/20/23 22:12 Creatinine 0.9 mg/dL (0.7-1.2) 05/20/23 22:12 GFR Calculation 95.0 mL/min (90-130) 05/20/23 22:12 Glucose 118 mg/dL (65-115) H 05/20/23 22:12 Calculated Osmolality 292 mOsm/kg (285-295) 05/20/23 22:12 Calcium 9.3 mg/dL (8.5-10.5) 05/20/23 22:12 Total Bilirubin 0.4 mg/dL (0.15-1.2) 05/20/23 22:12 AST 14 U/L (0-40) 05/20/23 22:12 ALT 10 U/L (0-41) 05/20/23 22:12 Alkaline Phosphatase 102 U/L (40-130) 05/20/23 22:12 Total Protein 6.6 g/dL (6.6-8.7) 05/20/23 22:12 Albumin 4.4 g/dL (3.5-5.2) 05/20/23 22:12 Globulin 2.2 g/dL (1.3-4.6) 05/20/23 22:12 All radiology interpretation(s) finalized by discharge Discharge Plan Discharge Patient Disposition: Home Clinical Impression: Anal or rectal pain, History of constipation Condition: Stable Prescriptions: New Anusol-HC 25 mg suppository 25 mg ID BID 14 Days Qty: 24 0RF No Action levocetirizine 5 mg tablet 5 mg PO DAILY fluticasone propionate 110 mcg/actuation HFA aerosol inhaler 2 puff inhalation BID levalbuterol tartrate [Xopenex HFA] 45 mcg/actuation HFA aerosol inhaler 2 inh inhalation Q6H PRN (Reason: shortness of breath or wheezing) Qty: 15 6RF pantoprazole [Protonix] 40 mg tablet,delayed release (DR/EC) 40 mg PO DAILY 30 Days Qty: 30 12RF ondansetron HCl 4 mg tablet 4 mg PO Q6H PRN (Reason: Nausea) azelastine 137 mcg (0.1 %) aerosol,spray 1 spray intranasal BID Rx Instructions: administer into each nostril levalbuterol HCl 0.63 mg/3 mL solution for nebulization 0.63 mg inhalation TID PRN (Reason: shortness of breath or wheezing) Qty: 90 6RF montelukast [Singulair] 10 mg tablet 10 mg PO DAILY Qty: 30 3RF ipratropium bromide 0.02 % solution 2.5 ml inhalation Q6H PRN (Reason: shortness of breath or wheezing) Qty: 150 6RF hydrocodone-acetaminophen 5-325 mg tablet 1 tab PO Q8H PRN (Reason: pain) Qty: 14 0RF hydroxyzine HCl 25 mg tablet 25 mg PO QID PRN (Reason: Itching) fluticasone propionate [Flonase Allergy Relief] 50 mcg/actuation spray,suspension 1 spray intranasal DAILY PRN (Reason: Allergy Symptoms) Rx Instructions: administer into each nostril Protonix 40 mg tablet,delayed release (DR/EC) 40 mg PO BID 42 Days Qty: 84 1RF Discharge Orders: Discharge ED (Routine); Ordered 05/20/23 Ordered By: Dante Amaro Referrals: Johny Funes MD [Primary Care Provider] - Discharge Diet: Usual diet Discharge Activity: Increase activity as tolerated Patient Instructions: Rectal Pain (ED) Activity Restrictions/Additional Instructions: Case management will contact you regarding follow-up appointment with surgeon for colonoscopy. Use suppositories 1 suppositories twice a day for rectal discomfort. Avoid straining of stools. Continue with MiraLAX to keep stools soft. Follow-up with primary care as needed. Return to ED for new concerns. Coding Level of Care Code ED Jewel Ol[employer] Machine Operator for Craig Lyons
[2023-05-20 22:18] LABS: Basophils % 0.3 %; Eosinophils # 0.1 10^3/uL (0.0-0.8); Eosinophils % 1.9 %; Hematocrit 42.9 % (37-53); Lymphocytes # 2.2 10^3/uL (0.8-4.8); Lymphocytes % 31.7 %; Mean Corpuscular HGB Conc 33.3 g/dL (30-55); Mean Corpuscular Hemoglobin 28.5 pg (27-33); Mean Corpuscular Volume 85.6 fl (82-101); Mean Platelet Volume 8.8 fL (7.4-10.4); Monocytes # 0.8 10^3/uL (0.2-0.9); Monocytes % 10.9 %; Neutrophils # 3.86 10^3/uL (1.8-7.7); Neutrophils % 55.1 %; Nucleated Red Blood Cells % 0 %; Platelet Count 229 10^3/cmm (157-399); Red Blood Count 5.01 10^6/uL (3.85-5.65); Red Cell Distribution Width 12.6 % (12.1-15.1)
[2023-05-20] MEDS: iohexol 350 mg/mL 500 mL Btl (per mL) IV (22:26)
[2023-05-20 22:34] LABS: Alanine Aminotransferase 10 U/L (0-41); Albumin Level 4.4 g/dL (3.5-5.2); Alkaline Phosphatase 102 U/L (40-130); Anion Gap 14.9 (5-19); Aspartate Amino Transferase 14 U/L (0-40); Blood Urea Nitrogen 11 mg/dL (6-20); Calcium 9.3 mg/dL (8.5-10.5); Carbon Dioxide 26 mmol/L (22-29); Chloride 104 mmol/L (98-107); Globulin 2.2 g/dL (1.3-4.6); Glucose 118 mg/dL (65-115); Osmolality Calculated 292 mOsm/kg (285-295); Potassium 3.9 mmol/L (3.5-5.1); Sodium 141 mmol/L (136-145); Total Bilirubin 0.4 mg/dL (0.15-1.2); Total Protein 6.6 g/dL (6.6-8.7)
[2023-05-20] MEDS: sodium chloride 0.9% 1,000 ML 999 ML IV (22:49)
[2023-05-20 22:54] VITALS: BP 113/81; PULSE 63; RESP 16; O2SAT 100
[2023-05-20 23:50] VITALS: BP 106/63; PULSE 76; RESP 17; O2SAT 98
--- NOTE | 2023-05-22 11:48 | DCPLANNER ---
A message was sent to general surgery on 05/22/23 at 1544. [facility] to contact patient for appt
== END 2023-05-21 00:01 | disposition home or self-care (01) ==
PROVIDERS: Emergency Provider Nurse Practitioner Family; PCP Family Medicine
DX: K62.89 Other specified diseases of anus and rectum (principal); Z87.891 Personal history of nicotine dependence
CPT/HCPCS: 74177; 80053; 85025; 99285; J7030; Q9967

== ENCOUNTER 2023-08-08 13:04 | Outpatient (CLI) | payer MEDICAID, SELFPAY ==
--- NOTE | 2023-08-08 13:15 | MR_ITS ---
WS: [id number] MRI HEAD WITH CONTRAST WITH ATTENTION TO THE INTERNAL AUDITORY CANALS TECHNIQUE: Sagittal T1, T2 axial, T2 axial flair, axial susceptibility weighted imaging, axial diffus ion weighted images, and coronal T2 images were obtained. Pre and post T1 axial and post T1 coronal i mages. ADC and FSPGR images. Post gadolinium images with attention to the internal auditory canals. A xial fiesta imaging. CLINICAL INFORMATION: heaRing loss COMPARISON: None. FINDINGS: Proximal 7th and 8th cranial nerves are normal in appearance. Normal trigeminal nerve root entry zone s. No evidence of enhancing IAC or CP angle mass. Paranasal sinuses are well aerated. Mastoid air kaycee ls are well aerated. Normal posterior nasopharynx. No evidence of restricted diffusion to suggest acute ischemia. Ventricular system and basal cisterns are patent. No suspicious intracranial signal abnormalities. Normal damian-white differentiation. Yessica l posterior fossa. Normal vascular flow voids at the skull base. No extra-axial fluid collections. No mass or mass effect. No hemosiderin on the susceptibly weighted images. No abnormal gadolinium enhancement. Normal dural venous sinuses. Normal optic chiasm and pituitary in fundibulum. MR/MR iac's wo/w con* [id number] IMPRESSION: 1. Proximal 7th and 8th cranial nerves are normal in appearance. No evidence o f enhancing IAC or CP angle mass. 2. Paranasal sinuses and mastoid air cells are well aerated. 3. No suspicious intracranial signal abnormalities. 4. No hemosiderin on susceptibility-weighted images. 5. No abnormal intracranial enhancement. 6. No other suspicious findings.
[2023-08-08] MEDS: gadobenate dimeglumine 20 mL vial IV (14:05)
== END 2023-08-08 13:05 | disposition home or self-care (01) ==
LOC: RAD 13:05
PROVIDERS: PCP Family Medicine; Visit Provider Specialist
DX: H91.20 Sudden idiopathic hearing loss, unspecified ear (principal)
CPT/HCPCS: 70553; A9577

== ENCOUNTER 2023-08-21 13:12 | Emergency (ER) | payer MEDICAID, SELFPAY ==
[2023-08-21 13:23] VITALS: BP 114/76; PULSE 71; RESP 14; TEMP 36.6; O2SAT 97
--- NOTE | 2023-08-21 13:31 | CTR_ITS ---
PROCEDURE INFORMATION: Exam: CT Head Without Contrast Exam date and time: 08/21/2023 1:39 PM Age: 37 years old Clinical indication: Stroke-like symptoms; Other: All extremities weakness; Additional info: Symptoms of acute stroke TECHNIQUE: Imaging protocol: Computed tomography of the head without contrast. Radiation optimization: All CT scans at this facility use at least one of these dose optimization techniques: automated exposure control; mA and/or kV adjustment per patient size (includes targeted exams where dose is matched to clinical indication); or iterative reconstruction. Other technique: STROKE PROTOCOL was implemented. COMPARISON: MR smiley's wo/w con* [id number] 08/08/2023 1:24 PM RADIATION DOSE METRICS: Total DLP (mGy-cm): 1052 FINDINGS: Brain: Normal. No hemorrhage. Unremarkable white matter. No mass effect. Ventricles: No hydrocephalus or evidence of increased intracranial pressure. Paranasal sinuses: Visualized sinuses are unremarkable. No fluid levels. Mastoid air cells: Visualized mastoid air cells are well aerated. Bones: Unremarkable. No acute fracture. Soft tissues: Unremarkable. CT/CT head thrombolytic [id number] IMPRESSION: No acute intracranial abnormality identified. ASSESSMENT: ASPECTS ([place] Stroke Program Early CT Score) is 10.
--- NOTE | 2023-08-21 13:31 | ECG_ITS ---
[facility] Test Date: 2023-08-31 Pat Name: Shawn Espinoza Department: Room: Gender: Male Skates Operator: : 1985 Requested By: Aguilar Echols Order Number: [id number] Tone MD: Ryan Randall M.D. Measurements Intervals [place] Rate: 68 P: 68 MD: 181 QRS: 64 QRSD: 78 T: 64 QT: 365 QTc: 388 Interpretive Statements SINUS RHYTHM Compared to ECG 03/08/2023 10:58:42 No significant changes Electronically Signed On 08-21-2023 14:32:46 CDT by Ryan Randall M.D. [email or web address]Lucid Softwarehighland community hospitalFastCallaultman orrville hospitalAvanti Mining/store/[id number]
--- NOTE | 2023-08-21 13:38 | W.ED.NEUROSD ---
HPI - Neuro Symptoms/Deficit General: Chief Complaint: Neuro Symptoms/Deficit Stated Complaint: stroke like sym, slurred speach, numbness Time Seen by Provider: 08/21/23 13:30 Source: patient Mode of arrival: ambulatory History of Present Illness: 37-year-old male who presents emergency room complaining of slurred speech and numbness. States began last night suddenly around 8:00. He felt off balance while walking. Continues to have difficult time speaking and slurring his words and some word finding issues as well. During exam his exam was quite variable initially while wears having an IV start he could hold his right arm up and demonstrated some drift. When both arms are held up he was able to hold up without difficulty. He could lift his left leg and hold for 7 seconds but then when I asked him to do [id number] with his left heel against his right gonzalez he states he could not move the leg at all. He could do [id number] with his right heel on his left gonzalez but just prior to that he had difficult time lifting his right leg. He does have some difficulty with slurring of his words and word finding. Spouse reports she has been a little aggravated and difficult time with speech since last night and a progressively got worse overnight when he awoke this morning was worsened when he had gone to bed last night. Onset (ago): minute(s) Time: 13:23 Last Observed Normal: 20:00 Location: speech History of same: No Severity: mild Quality: weak Relieving factors: none Exacerbating factors: time Context: sudden onset Associated symptoms: Deny chest pain, cough, diaphoresis, fevers/chills, headache(s), anorexia, malaise, nausea, seizures, short of breath, syncope, tingling, vertigo, vomiting or weakness Treatments Prior to Arrival: none Review of Systems Const: Denies: malaise or diaphoresis Card: Denies: chest pain or syncope Resp: Denies: dyspnea GI: Denies: nausea or vomiting : Denies: dysuria, urinary frequency or urinary urgency Musc: Denies: neck pain or back pain Skin/Breast: Denies: rash Neuro: Denies: headache(s) or vertigo PFS ED PFSH: Medical History Anxiety Allergic rhinitis due to allergen No significant past medical history Surgical History History of colonoscopy 04/05 History of appendectomy Hx laparoscopic cholecystectomy No significant past surgical history Social History Smoking and tobacco/nicotine status: former use of tobacco/nicotine (quit about 2 months ago) Quit status (tobacco/nicotine): has quit using Year quit tobacco: 2021 Former quit date comment: 1 ppd X 16 years 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 right 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 NIH stroke score NIHSS: Level Of Consciousness - 1a: 0 Level Of Consciousness Questions - 1b: Both Correct Level Of Consciousness Commands - 1c: Both Correct Best Gaze - 2: Normal Visual Long - 3: No Visual Loss Facial Palsy - 4: Normal Motor Arm Right - 5: No Drift Motor Arm Left - 5: No Drift Motor Leg Right - 6: No Drift (Initially lift the left leg and holds for 7 seconds but then cannot do [id number] with the left heel) Motor Leg Left - 6: No Drift Limb Ataxia - 7: Absent Sensory - 8: Normal Best Language - 9: Mild/Moderate Aphasia Dysarthia - 10: Mild/Moderate Dysarthia Extinction And Inattention - 11: 0 Score: Total Score: 2 Physical Exam Const: GENERAL APPEARANCE: cooperative and comfortable ORIENTATION/CONSCIOUSNESS: Yes awake, Yes oriented to person, Yes oriented to place and Yes oriented to time HENMT: COMMON NORMALS: normocephalic, atraumatic and hearing grossly normal bilaterally HEAD & SCALP: normocephalic and atraumatic Resp: COMMON NORMALS: normal respiratory effort, No retractions, No use of accessory muscles and clear to auscultation bilaterally AUSCULTATION: clear to auscultation bilaterally Cardio: COMMON NORMALS: regular rate, regular rhythm and No murmurs present (Cardio) RATE: regular rate RHYTHM: regular rhythm GI: COMMON NORMALS: Soft to palpation and No hepatosplenomegaly present AUSCULTATION: Yes normoactive bowel sounds PALPATION: Yes Soft to palpation, No Tenderness to palpation present (GI), No Guarding due to palpation present (GI) and Yes No hepatosplenomegaly present Extremity: COMMON NORMALS: normal to inspection, capillary refill normal, no clubbing, cyanosis or edema, no calf tenderness and no pedal edema Neuro: SENSORIUM/ORIENTATION: Yes oriented to person, Yes oriented to place and Yes oriented to time OTHER: Neuroexam inconsistent see HPI notes and NIH scoring. Weakness seems to vary from the right to the left side during the same setting of exam. Skin: COMMON NORMALS: no rashes or lesions noted GENERAL SKIN EXAM: no rashes or lesions noted Course Vital Signs: Vital signs: Vital Signs Temperature 97.8 F 08/21/23 13:23 Pulse Rate 71 08/21/23 13:23 Respiratory Rate 14 08/21/23 13:23 Blood Pressure 114/76 08/21/23 13:23 Pulse Oximetry 97 08/21/23 13:23 Oxygen Delivery Me thod Room Air 08/21/23 13:23 MDM - Neuro Symptoms/Deficit Medical Decision Making Exam is inconsistent for stroke. He has reports of decreased sensation on the left side of his face his right arm and his right leg but he has weakness and difficulty initially with any movements and ataxia on the left leg. This all resolved spontaneously during the workup. CT head and neck were negative. CTA negative. Dr. Rodarte reviewed as well he felt this was also functional neurologic episode. Patient discharged home. Prior to discharge he was ambulated ambulated without any difficulty or ataxia all of his symptoms seem to have resolved. Reviewed findings with the patient. Medical Records I reviewed the patient's medical records. Lab Data I reviewed the patient's lab results. 08/21/23 13:38 08/21/23 13:[address] 08/21/23 13:31 IMPRESSION: No acute intracranial abnormality identified. ASSESSMENT: ASPECTS ([place] Stroke Program Early CT Score) is 10. ADDENDUM: 08/21/23 1404 THIS REPORT CONTAINS FINDINGS THAT MAY BE CRITICAL TO PATIENT CARE. The findings were verbally communicated by me to DR. AGUILAR LARSEN via telephone conference at 2:02 PM CDT on 08/21/2023. The findings were acknowledged and understood. Head/Neck CTA 08/21/23 13:49 IMPRESSION: No acute intracranial vascular abnormality identified. IMPRESSION: No acute extracranial vascular abnormality identified. REFERENCES: NASCET CRITERIA. The degree of stenosis in the cervical segment of the internal carotid artery is based on NASCET criteria. Normal is no stenosis. Mild is less than 50% stenosis. Moderate is 50-69% stenosis. Severe is 70% to 99% stenosis. Total occlusion is no detectable patent lumen. ADDENDUM: 08/21/23 3981 THIS REPORT CONTAINS FINDINGS THAT MAY BE CRITICAL TO PATIENT CARE. The findings were verbally communicated by me to DR. AGUILAR LARSEN via telephone conference at 2:35 PM CDT on 08/21/2023. The findings were acknowledged and understood. Laboratory Results WBC 6.63 10^3/uL (3.29-11.43) 08/21/23 13:38 RBC 5.21 10^6/uL (3.85-5.65) 08/21/23 13:38 Hgb 14.80 g/dL (11.27-16.99) 08/21/23 13:38 Hct 44.7 % (37-53) 08/21/23 13:38 MCV 85.8 fl (82-101) 08/21/23 13:38 MCH 28.4 pg (27-33) 08/21/23 13:38 MCHC 33.1 g/dL (30-55) 08/21/23 13:38 RDW 12.2 % (12.1-15.1) 08/21/23 13:38 Plt Count 235 10^3/cmm (157-399) 08/21/23 13:38 MPV 8.9 fL (7.4-10.4) 08/21/23 13:38 Neut % (Auto) 57.5 % 08/21/23 13:38 Lymph % (Auto) 30.8 % 08/21/23 13:38 [place] % (Auto) 8.6 % 08/21/23 13:38 Eos % (Auto) 2.6 % 08/21/23 13:38 Baso % (Auto) 0.3 % 08/21/23 13:38 Neut # (Auto) 3.82 10^3/uL (1.8-7.7) 08/21/23 13:38 Lymph # (Auto) 2.0 10^3/uL (0.8-4.8) 08/21/23 13:38 [place] # (Auto) 0.6 10^3/uL (0.2-0.9) 08/21/23 13:38 Eos # (Auto) 0.2 10^3/uL (0.0-0.8) 08/21/23 13:38 Baso # (Auto) 0.0 10^3/uL (0.0-0.1) 08/21/23 13:38 Nucleated RBC % (auto) 0 % 08/21/23 13:38 Nucleated RBCs # 0.0 /100WBC 08/21/23 13:38 PT 13.30 SECONDS (12.1-14.9) 08/21/23 13:38 INR 0.98 (0.8-1.2) 08/21/23 13:38 APTT 26.9 SECONDS (23.9-36.7) 08/21/23 13:38 Sodium 139 mmol/L (136-145) 08/21/23 13:38 Potassium 4.2 mmol/L (3.5-5.1) 08/21/23 13:38 Chloride 105 mmol/L (98-107) 08/21/23 13:38 Carbon Dioxide 23 mmol/L (22-29) 08/21/23 13:38 Anion Gap 15.2 (5-19) 08/21/23 13:38 BUN 12 mg/dL (6-20) 08/21/23 13:38 Creatinine 1.0 mg/dL (0.7-1.2) 08/21/23 13:38 GFR Calculation 84.1 mL/min (90-130) L 08/21/23 13:38 Glucose 108 mg/dL (65-115) 08/21/23 13:38 POC Glucose 100 mg/dL (70-110) 08/21/23 13:38 Calculated Osmolality 288 mOsm/kg (285-295) 08/21/23 13:38 Calcium 9.2 mg/dL (8.5-10.5) 08/21/23 13:38 Total Bilirubin 0.8 mg/dL (0.15-1.2) 08/21/23 13:38 AST 19 U/L (0-40) 08/21/23 13:38 ALT 15 U/L (0-41) 08/21/23 13:38 Alkaline Phosphatase 103 U/L (40-130) 08/21/23 13:38 Total Protein 7.0 g/dL (6.6-8.7) 08/21/23 13:38 Albumin 4.3 g/dL (3.5-5.2) 08/21/23 13:38 Globulin 2.7 g/dL (1.3-4.6) 08/21/23 13:38 Urine Color Yellow (Yellow) 08/21/23 14:45 Urine Appearance Clear (CLEAR) 08/21/23 14:45 Urine pH 9 (5-7) H 08/21/23 14:45 Ur Specific [place] 1.010 (1.005-1.030) 08/21/23 14:45 Urine Protein Neg (Negative) 08/21/23 14:45 Urine Glucose (UA) Norm (Normal) 08/21/23 14:45 Urine Ketones Negative (Negative) 08/21/23 14:45 Urine Blood Neg (Negative) 08/21/23 14:45 Urine Nitrate Negative (Negative) 08/21/23 14:45 Urine Bilirubin Neg (Negative) 08/21/23 14:45 Urine Urobilinogen Norm mg/dL (Negative) 08/21/23 14:45 Ur Leukocyte Esterase Negative (Negative) 08/21/23 14:45 Urine Opiates Screen Negative ng/mL (Negative) 08/21/23 14:45 Ur Barbiturates Screen Negative ng/mL (Negative) 08/21/23 14:45 Ur Phencyclidine Scrn Negative ng/mL (Negative) 08/21/23 14:45 Ur Amphetamines Screen Negative ng/mL (Negative) 08/21/23 14:45 U Benzodiazepines Scrn Negative ng/mL (Negative) 08/21/23 14:45 Urine Cocaine Screen Negative ng/mL (Negative) 08/21/23 14:45 U Marijuana (THC) Screen Negative ng/mL (Negative) 08/21/23 14:45 All radiology interpretation(s) finalized by discharge Discharge Plan Discharge Patient Disposition: Home Clinical Impression: Functional neurologic complaint Condition: Stable Prescriptions: New hydroxyzine HCl 25 mg tablet 25 mg PO QID PRN (Reason: anxiety) Qty: 10 0RF No Action levocetirizine 5 mg tablet 5 mg PO DAILY fluticasone propionate 110 mcg/actuation HFA aerosol inhaler 2 puff inhalation BID azelastine 137 mcg (0.1 %) aerosol,spray 1 spray intranasal BID Rx Instructions: administer into each nostril levalbuterol HCl 0.63 mg/3 mL solution for nebulization 0.63 mg inhalation TID PRN (Reason: shortness of breath or wheezing) Qty: 90 6RF montelukast [Singulair] 10 mg tablet 10 mg PO DAILY Qty: 30 3RF hydrocodone-acetaminophen 5-325 mg tablet 1 tab PO Q8H PRN (Reason: pain) Qty: 14 0RF hydroxyzine HCl 25 mg tablet 25 mg PO QID PRN (Reason: Itching) fluticasone propionate [Flonase Allergy Relief] 50 mcg/actuation spray,suspension 1 spray intranasal DAILY PRN (Reason: Allergy Symptoms) Rx Instructions: administer into each nostril omeprazole 40 mg capsule,delayed release(DR/EC) 40 mg PO DAILY Discharge Orders: Discharge ED (Routine); Ordered 08/21/23 Ordered By: Aguilar Larsen Referrals: Johny Funes MD [Primary Care Provider] - Discharge Diet: Usual diet Discharge Activity: Increase activity as tolerated Patient Instructions: Opioid Safety, Pain Management Activity Restrictions/Additional Instructions: Thank you for choosing [facility] for your healthcare needs today. It is very important that you follow up as instructed or that you return to the Emergency Department should you have concerns or if your condition changes or worsens in any way. You were seen and evaluated today for possible stroke in the emergency room there is no sign of acute stroke. CT of your head and CT of your head and neck were negative. Exam was not consistent with a stroke. Neurologist on-call reviewed as well. This appears to be a functional neurologic episode. Follow-up with your primary care doctor. You can use hydroxyzine as needed for anxiety or stress. 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
[2023-08-21 13:41] LABS: Glucose Point of Care 100 mg/dL (70-110)
[2023-08-21 13:45] LABS: Basophils % 0.3 %; Eosinophils # 0.2 10^3/uL (0.0-0.8); Eosinophils % 2.6 %; Hematocrit 44.7 % (37-53); Lymphocytes % 30.8 %; Mean Corpuscular HGB Conc 33.1 g/dL (30-55); Mean Corpuscular Hemoglobin 28.4 pg (27-33); Mean Corpuscular Volume 85.8 fl (82-101); Mean Platelet Volume 8.9 fL (7.4-10.4); Monocytes # 0.6 10^3/uL (0.2-0.9); Monocytes % 8.6 %; Neutrophils # 3.82 10^3/uL (1.8-7.7); Neutrophils % 57.5 %; Nucleated Red Blood Cells % 0 %; Platelet Count 235 10^3/cmm (157-399); Red Blood Count 5.21 10^6/uL (3.85-5.65); Red Cell Distribution Width 12.2 % (12.1-15.1); White Blood Count 6.63 10^3/uL (3.29-11.43)
--- NOTE | 2023-08-21 13:49 | CTR_ITS ---
PROCEDURE INFORMATION: Exam: CTA Head With Contrast, Arteriography Exam date and time: 08/21/2023 2:04 PM Age: 37 years old Clinical indication: Stroke-like symptoms; Other: All extremities weakness; Additional info: Acute CVA TECHNIQUE: Imaging protocol: Computed tomographic angiography of the head with contrast. Exam focused on the arteries. 3D rendering (Not supervised by radiologist): MIP reconstructed images were created by the technologist. Radiation optimization: All CT scans at this facility use at least one of these dose optimization techniques: automated exposure control; mA and/or kV adjustment per patient size (includes targeted exams where dose is matched to clinical indication); or iterative reconstruction. Contrast material: OMNI 350; Contrast volume: 100 ml; Contrast route: INTRAVENOUS (IV); COMPARISON: CT head thrombolytic [id number] 08/21/2023 1:39 PM RADIATION DOSE METRICS: Total DLP (mGy-cm): 544.73 FINDINGS: ANTERIOR CIRCULATION: Right internal carotid artery: Intracranial segment is patent with no significant stenosis. No aneurysm. Right middle cerebral artery: No occlusion or significant stenosis. No aneurysm. Right anterior cerebral artery: No occlusion or significant stenosis. No aneurysm. Anterior communicating artery: Small anterior cerebral artery A1 segment, normal variant. No stenosis/occlusion. Patent anterior communicating artery. Left internal carotid artery: Intracranial segment is patent with no significant stenosis. No aneurysm. Left middle cerebral artery: No occlusion or significant stenosis. No aneurysm. Left anterior cerebral artery: No occlusion or significant stenosis. No aneurysm. POSTERIOR CIRCULATION: Right vertebral artery: No occlusion or significant stenosis. No aneurysm. Left vertebral artery: No occlusion or significant stenosis. No aneurysm. Basilar artery: No occlusion or significant stenosis. No aneurysm. Right posterior cerebral artery: Predominately embryonic origin of the right posterior cerebral artery, normal variant. No stenosis/occlusion. Left posterior cerebral artery: No occlusion or significant stenosis. No aneurysm. Brain: No definite mass, mass effect, or midline shift. Ventricles: No hydrocephalus. Bones/joints: No acute abnormality. No acute fracture. Soft tissues: Unremarkable. PROCEDURE INFORMATION: Exam: CTA Neck With Contrast Exam date and time: 08/21/2023 2:04 PM Age: 37 years old Clinical indication: Stroke-like symptoms; Other: All extremities weakness; Additional info: Acute CVA TECHNIQUE: Imaging protocol: Computed tomographic angiography of the neck with contrast. Exam focused on the cervical segments of the vasculature. 3D rendering (Not supervised by radiologist): MIP reconstructed images were created by the technologist. Radiation optimization: All CT scans at this facility use at least one of these dose optimization techniques: automated exposure control; mA and/or kV adjustment per patient size (includes targeted exams where dose is matched to clinical indication); or iterative reconstruction. Contrast material: OMNI 350; Contrast volume: 100 ml; Contrast route: INTRAVENOUS (IV); COMPARISON: CT neck con [id number] 01/09/2022 4:50 PM RADIATION DOSE METRICS: Total DLP (mGy-cm): 544.73 FINDINGS: Right common carotid artery: No stenosis. No dissection or occlusion. Right internal carotid artery: No stenosis of the extracranial segment. No dissection or occlusion. Right external carotid artery: No occlusion or stenosis of the origin. Left common carotid artery: No stenosis. No dissection or occlusion. Left internal carotid artery: No stenosis of the extracranial segment. No dissection or occlusion. Left external carotid artery: No occlusion or stenosis of the origin. Right vertebral artery: No stenosis. No dissection or occlusion. Left vertebral artery: No stenosis. No dissection or occlusion. Salivary glands: 2.4 mm calcification left superficial lobe parotid gland without evidence of duct ectasia. Soft tissues: Normal. No significant soft tissue swelling. Bones/joints: No acute fracture. CT/CT angio headneck* [id number] IMPRESSION: No acute intracranial vascular abnormality identified. IMPRESSION: No acute extracranial vascular abnormality identified. REFERENCES: NASCET CRITERIA. The degree of stenosis in the cervical segment of the internal carotid artery is based on NASCET criteria. Normal is no stenosis. Mild is less than 50% stenosis. Moderate is 50-69% stenosis. Severe is 70% to 99% stenosis. Total occlusion is no detectable patent lumen.
[2023-08-21 14:02] LABS: INR 0.98 (0.8-1.2)
[2023-08-21 14:03] LABS: Partial Thromboplastin Time 26.9 SECONDS (23.9-36.7)
--- NOTE | 2023-08-21 14:08 | P.CONIM_ITS ---
Providers/Reason For Consult 2 Consulting Physician/Specialty*: Jose E Rodarte MD neurology and epilepsy Reason for Consult*: Code stroke emergency department room #12/acute care Primary Care Provider: Johny Funes MD History of Present Illness History of Present Illness Shawn Espinoza is a 37 year old male with a history of anxiety treated with hydroxyzine. 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 He was later observed to stutter. The patient did not seek immediate medical attention and went to bed on the evening of 08/20/2023. According to the patient's the patient woke up this morning on 08/21/2023 with worsening of speech and complaining of weakness and balance difficulty. Neurological examination was nonfocal with NIH score = 0. 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 Noncontrast head CT was obtained on 08/21/2023 and revealed no acute findings. Since the patient's symptoms began on 08/20/2023 and the patient presented to the [facility] emergency room on 08/21/2023 and code stroke was initiated at 1:36 PM on 08/21/2023, patient was not a candidate for thrombolytics intravenously and therefore no intravenous thrombolytics were administered. 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 In July 2023 patient underwent MRI of the internal auditory canal secondary to complaints of hearing difficulty the study was reported to be unrevealing. Serum glucose was pending at the time of this dictation. Drug allergies: Albuterol which resulted in shakiness Prednisone which resulted in shakiness Penicillins type reaction unknown Current medications: Astelin 137 mcg nasal spray 1 spray intranasally twice a day Flonase allergy relief 1 spray intranasally as needed Hydrocodone/acetaminophen 1 p.o. every 8 hours as needed Hydroxyzine 25 mg p.o. 4 times a day as needed Ipratropium 0.2% solution 2.5 mL every 6 hours inhaled Levalbuterol 0.3 mg inhalation 3 times a day as needed Levocetirizine 5 mg p.o. daily Singulair 10 mg p.o. daily Zofran 4 mg p.o. every 6 hours as needed Protonix 40 mg p.o. twice daily Past medical history: Ectopic gastric mucosa Asthma Ex-smoker Anxiety Allergic rhinitis Habits: The patient smoked but quit Family history: Family member with reported brain tumor associated with decreased hearing Review of Systems 2 General: Reports: 10 or more systems reviewed and unremarkable except in HPI and below Medications/Allergies Home Medications Medication Instructions Recorded Confirmed Last Taken Type fluticasone propionate 50 1 spray intranasal DAILY PRN 03/24/22 08/21/23 08/20/23 History mcg/actuation nasal Allergy Symptoms spray,suspension (Flonase Allergy Relief) hydroxyzine HCl 25 mg tablet 25 mg PO QID PRN Itching 03/24/22 08/21/23 08/21/23 History montelukast 10 mg tablet 10 mg PO DAILY #30 tabs 03/30/22 08/21/23 04/03/23 Rx (Singulair) levocetirizine 5 mg tablet 5 mg PO DAILY 06/22/22 08/21/23 08/21/23 History azelastine 137 mcg (0.1 %) nasal 1 spray intranasal BID 10/24/22 08/21/23 08/20/23 History spray aerosol levalbuterol HCl 0.63 mg/3 mL 0.63 mg (3 mL) inhalation TID PRN 10/24/22 08/21/23 Unknown Rx solution for nebulization shortness of breath or wheezing #90 mL fluticasone propionate 110 2 puff inhalation BID 04/24/23 08/21/23 08/20/23 History mcg/actuation HFA aerosol inhaler hydrocodone 5 mg-acetaminophen 325 1 tab PO Q8H PRN pain #14 tabs 04/26/23 08/21/23 Unknown Rx mg tablet omeprazole 40 mg capsule,delayed 40 mg PO DAILY 08/21/23 08/21/23 08/21/23 History release Allergies Allergy/AdvReac Type Severity Reaction Status Date / Time albuterol Allergy Intermediate ADR-Shakine Verified 08/21/23 13:27 ss prednisone Allergy Intermediate ADR-Shakine Verified 08/21/23 13:27 ss Penicillins Allergy ALGY-Rash Verified 08/21/23 13:27 PFSH Acute 2 PFSH: Medical History Anxiety Allergic rhinitis due to allergen No significant past medical history Surgical History History of colonoscopy 04/05 History of appendectomy Hx laparoscopic cholecystectomy No significant past surgical history Social History Smoking and tobacco/nicotine status: former use of tobacco/nicotine (quit about 2 months ago) Quit status (tobacco/nicotine): has quit using Year quit tobacco: 2021 Former quit date comment: 1 ppd X 16 years 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 He is oriented to person and place and situation. Patient's speech production is slow but it appears to be nonphysiologic. There is no obvious facial weakness. Tongue movements are within normal limits. Patient had bilateral elevation of his palate. Cranial nerves II through XII grossly intact. Pupils 4 mm round reactive to light and accommodation. Extraocular movements intact. Motor examination grossly nonfocal. Patient was able to elevate his upper and lower extremities against gravity for greater than 7 seconds. Deep tendon reflexes 2+ bilaterally. Plantar responses flexor bilaterally there was no clonus sensory examination was intact to touch. Throat clear. Lungs clear. Heart regular rhythm and rate. Extremities were negative for cyanosis. Patient did complain of pain in the right forearm area around the recent tattoo on his forearm placed approximately 2 weeks ago. I did not see any clear signs of any infection. Data 08/21/23 13:38 08/21/23 13:38 A&P Assessment and plan (1) Slurred speech: Impression: 1. Slurred speech and balance difficulty which began on 08/20/2023 and patient presented to the [facility] emergency room on 08/21/2023. Code stroke initiated at 1:36 PM on 08/21/2023. NIH score = 0. Patient's subjective complaints appear clinically to suggest a functional neurological disorder. Therefore patient was not a candidate for thrombolytics and no thrombolytics were administered. 2. History of anxiety (patient does not report any history of being homicidal suicidal) 3. History of asthma Plan: 1. Agree with obtaining CT angiogram of the head and neck to assess for any stenosis 2. Recommend patient be evaluated by psychiatry for anxiety 3. No further recommendations from neurological standpoint at this time (2) Difficulty balancing: Consult Attestations 2 Medical Necessity Statement: The patient was evaluated by neurology for acute care/code stroke emergency department room number Coding Level of Care Code 41518 Diagnoses Slurred speech R47.81 Difficulty balancing R29.818
[2023-08-21] MEDS: iohexol 350 mg/mL 500 mL Btl (per mL) IV (14:10)
[2023-08-21 14:27] LABS: Alanine Aminotransferase 15 U/L (0-41); Albumin Level 4.3 g/dL (3.5-5.2); Alkaline Phosphatase 103 U/L (40-130); Anion Gap 15.2 (5-19); Aspartate Amino Transferase 19 U/L (0-40); Blood Urea Nitrogen 12 mg/dL (6-20); Calcium 9.2 mg/dL (8.5-10.5); Carbon Dioxide 23 mmol/L (22-29); Chloride 105 mmol/L (98-107); Creatinine Clr Calc Pharmacy 109.4335; Globulin 2.7 g/dL (1.3-4.6); Glomerular Filtration Rate 84.1 mL/min (90-130); Glucose 108 mg/dL (65-115); Osmolality Calculated 288 mOsm/kg (285-295); Potassium 4.2 mmol/L (3.5-5.1); Sodium 139 mmol/L (136-145); Total Bilirubin 0.8 mg/dL (0.15-1.2)
[2023-08-21 14:54] LABS: Add Urine Microscopic? NO; Charge for UA Resulting for Rev
[2023-08-21 15:01] LABS: Bilirubin Urine Neg (Negative); Blood Urine Neg (Negative); Glucose Urine UA Norm (Normal); Ketones Urine Negative (Negative); Leukocyte Esterase Urine Negative (Negative); Nitrate Urine Negative (Negative); Protein Urine Neg (Negative); Urine Appearance Clear (CLEAR); Urine Color Yellow (Yellow); Urobilinogen Urine Norm (Negative); pH Urine 9 (5-7)
[2023-08-21 15:06] LABS: Amphetamines Screen Urine Negative (Negative); Barbiturates Screen Urine Negative (Negative); Benzodiazepines Screen Urine Negative (Negative); Cocaine Screen Urine Negative (Negative); Opiate Screen Urine Negative (Negative); PCP Screen Urine Negative (Negative); THC Screen Urine Negative (Negative)
[2023-08-21 16:24] VITALS: BP 113/70; PULSE 69; O2SAT 97
== END 2023-08-21 16:25 | disposition home or self-care (01) ==
PROVIDERS: Emergency Provider Family Medicine; PCP Family Medicine
DX: F44.6 Conversion disorder with sensory symptom or deficit (principal); Z87.891 Personal history of nicotine dependence
CPT/HCPCS: 36416; 70450; 70496; 70498; 80053; 80306; 81003; 82962; 85025; 85610; 85730; 93005; 99285; Q9967

== ENCOUNTER 2023-09-09 03:52 | Emergency (ER) | payer MEDICAID, SELFPAY ==
[2023-09-09 04:12] VITALS: BP 126/83; PULSE 66; RESP 18; TEMP 37.1; O2SAT 99; BMI 22.4
[2023-09-09 04:15] VITALS: BP 105/69; PULSE 67; RESP 16; O2SAT 97
[2023-09-09 04:31] LABS: Basophils % 0.2 %; Eosinophils # 0.1 10^3/uL (0.0-0.8); Hematocrit 49.3 % (37-53); Lymphocytes # 1.6 10^3/uL (0.8-4.8); Lymphocytes % 12.6 %; Mean Corpuscular HGB Conc 33.3 g/dL (30-55); Mean Corpuscular Hemoglobin 28.4 pg (27-33); Mean Corpuscular Volume 85.3 fl (82-101); Mean Platelet Volume 9.1 fL (7.4-10.4); Monocytes # 0.9 10^3/uL (0.2-0.9); Monocytes % 7.5 %; Neutrophils # 9.72 10^3/uL (1.8-7.7); Neutrophils % 78.5 %; Nucleated Red Blood Cells % 0 %; Platelet Count 242 10^3/cmm (157-399); Red Blood Count 5.78 10^6/uL (3.85-5.65); Red Cell Distribution Width 12.4 % (12.1-15.1); White Blood Count 12.38 10^3/uL (3.29-11.43)
[2023-09-09 04:45] VITALS: BP 105/69; O2SAT 98
[2023-09-09 04:51] LABS: Alanine Aminotransferase 21 U/L (0-41); Albumin Level 4.9 g/dL (3.5-5.2); Alkaline Phosphatase 114 U/L (40-130); Anion Gap 17.3 (5-19); Aspartate Amino Transferase 21 U/L (0-40); Blood Urea Nitrogen 16 mg/dL (6-20); Calcium 9.7 mg/dL (8.5-10.5); Carbon Dioxide 25 mmol/L (22-29); Chloride 107 mmol/L (98-107); Glomerular Filtration Rate 75.3 mL/min (90-130); Glucose 123 mg/dL (65-115); Lipase 23 U/L (13-60); Osmolality Calculated 303 mOsm/kg (285-295); Potassium 4.3 mmol/L (3.5-5.1); Sodium 145 mmol/L (136-145); Total Bilirubin 0.7 mg/dL (0.15-1.2); Total Protein 7.9 g/dL (6.6-8.7)
--- NOTE | 2023-09-09 04:52 | CTR_ITS ---
PROCEDURE INFORMATION: Exam: CT Abdomen And Pelvis With Contrast Exam date and time: 09/09/2023 5:41 AM Age: 37 years old Clinical indication: Nausea and vomiting; Abdominal pain; Prior surgery; Surgery date: 6+ months; Surgery type: Gb. Appy. Patient HX: C/O periumbilical pain with n/v. ; Additional info: Abd pain vomiting TECHNIQUE: Imaging protocol: Computed tomography of the abdomen and pelvis with contrast. Contrast material: OMNI 350; Contrast volume: 100 ml; Contrast route: INTRAVENOUS (IV); COMPARISON: CT abdomen pelvis w con* [id number] 05/20/2023 10:25 PM RADIATION DOSE METRICS: Total DLP (mGy-cm): 433.56 FINDINGS: Liver: Normal. No mass. Gallbladder and biliary ducts: Cholecystectomy. Pancreas: Normal. No ductal dilation. Spleen: Mild 13 cm splenomegaly. Small hiatal hernia with reflux. Adrenal glands: Normal. No mass. Kidneys and ureters: Nonobstructing right renal calculi. Stomach and bowel: Fluid-filled loops of nondilated small bowel suggest gastroenteritis. Appendix: No evidence of appendicitis. Intraperitoneal space: Unremarkable. No free air. No significant fluid collection. Vasculature: Unremarkable. No abdominal aortic aneurysm. Lymph nodes: Unremarkable. No enlarged lymph nodes. Urinary bladder: Unremarkable as visualized. Reproductive: Unremarkable as visualized. Bones/joints: Unremarkable. No acute fracture. Soft tissues: Unremarkable. CT/CT abdomen pelvis w con* [id number] IMPRESSION: No acute subdiaphragmatic pathology. Findings suggesting gastroenteritis.
[2023-09-09 04:58] LABS: Add Urine Microscopic? NO; Charge for UA Resulting for Rev
--- NOTE | 2023-09-09 05:01 | ED_ITS ---
Documented by User: Bart Martinez DO 09/09/23 16:35 HPI - Abdominal Pain 2 General: Chief Complaint: Abdominal Pain Stated Complaint: n/v passed out fall Time Seen by Provider: 09/09/23 04:42 History of Present Illness: 37-year-old male presenting with periumb ilical abdominal pain, multiple episodes of vomiting starting around 10 PM. Pain is quite severe at times. Seems to radiate to the back. No blood in the vomitus or stool. No fever. Has a history of cholecystectomy and appendectomy in the past. He has had similar pains before, not this severe. Pain became so severe, that he may have had a syncopal episode at home briefly. PFSH ED 2 PFSH: Medical History Anxiety Allergic rhinitis due to allergen No significant past medical history Surgical History History of colonoscopy 04/05 History of appendectomy Hx laparoscopic cholecystectomy No significant past surgical history Social History Smoking and tobacco/nicotine status: former use of tobacco/nicotine (quit about 2 months ago) Quit status (tobacco/nicotine): has quit using Year quit tobacco: 2021 Former quit date comment: 1 ppd X 16 years 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 right ring finger Physical Exam 2 Const: COMMON NORMALS: patient oriented x3 and alert GENERAL APPEARANCE: c ooperative and ill appearing (Mildly); not frail appearing ORIENTATION/CONSCIOUSNESS: Yes awake HENMT: COMMON NORMALS: normocephalic, atraumatic and Normal external nose present HEAD & SCALP: normocephalic and atraumatic FACE & SINUS: normal facial exam and face symmetric NOSE: Normal external nose present Eye: COMMON NORMALS: Equal, round and reactive pupils present and EOMs intact bilaterally PUPIL: Yes Equal, round and reactive pupils present Neck/C-Spine: GENERAL: Yes trachea midline Chest: CHEST: Yes Symmetrical chest wall rise Resp: COMMON NORMALS: normal respiratory effort, No retractions, No use of accessory muscles and clear to auscultation bilaterally AUSCULTATION: clear to auscultation bilaterally Cardio: COMMON NORMALS: regular rate and regular rhythm RATE: regular rate RHYTHM: regular rhythm GI: COMMON NORMALS: Normal to inspection, nondistended, normoactive bowel sounds present PALPATION: Yes Tenderness to palpation present (GI) and Yes Guarding due to palpation present (GI) Extremity: COMMON NORMALS: no pedal edema Neuro: MERLINE COMA SCALE: document GCS findings [place] coma scale eye opening: Spontaneous [place] coma scale verbal response: Orientated [place] coma scale motor response: Obey commands Merline coma scale total score: 15 COMMON NORMALS: patient oriented x3 SENSORIUM/ORIENTATION: Yes alert SENSORY EXAM: Yes extremities (intact) Psych: COMMON NORMALS: speech normal SPEECH: Yes normal speech Skin: COMMON NORMALS: no rashes or lesions noted GENERAL SKIN EXAM: no rashes or lesions noted Course 2 Vital Signs: Vital signs: Vital Signs Temperature 98.8 F 09/09/23 04:12 Pulse Rate 69 09/09/23 06:34 Respiratory Rate 18 09/09/23 06:34 Blood Pressure 96/55 09/09/23 06:34 Pulse Oximetry 96 09/09/23 06:34 Oxygen Delivery Me thod Room Air 09/09/23 06:34 MDM - Abdominal Pain Medical Decision Making Exam reveals periumbilical tenderness, and right-sided abdominal tenderness. There is no fever. Vitals are stable. White blood cell count is 12.4. Blood sugar is 123. Other laboratory findings are nonremarkable as yet. Urinalysis is pending. CT is pending of the abdomen pelvis as well. Lab Data 09/09/23 04:24 09/09/23 04:24 Labs/Radiology: Radiology Impressions Abdomen/Pelvis CT 09/09/23 04:52 IMPRESSION: No acute subdiaphragmatic pathology. Findings suggesting gastroenteritis. Laboratory Results WBC 12.38 10^3/uL (3.29-11.43) H 09/09/23 04:24 RBC 5.78 10^6/uL (3.85-5.65) H 09/09/23 04:24 Hgb 16.40 g/dL (11.27-16.99) 09/09/23 04:24 Hct 49.3 % (37-53) 09/09/23 04:24 MCV 85.3 fl (82-101) 09/09/23 04:24 MCH 28.4 pg (27-33) 09/09/23 04:24 MCHC 33.3 g/dL (30-55) 09/09/23 04:24 RDW 12.4 % (12.1-15.1) 09/09/23 04:24 Plt Count 242 10^3/cmm (157-399) 09/09/23 04:24 MPV 9.1 fL (7.4-10.4) 09/09/23 04:24 Neut % (Auto) 78.5 % 09/09/23 04:24 Lymph % (Auto) 12.6 % 09/09/23 04:24 Avery % (Auto) 7.5 % 09/09/23 04:24 Eos % (Auto) 1.0 % 09/09/23 04:24 Baso % (Auto) 0.2 % 09/09/23 04:24 Neut # (Auto) 9.72 10^3/uL (1.8-7.7) H 09/09/23 04:24 Lymph # (Auto) 1.6 10^3/uL (0.8-4.8) 09/09/23 04:24 Avery # (Auto) 0.9 10^3/uL (0.2-0.9) 09/09/23 04:24 Eos # (Auto) 0.1 10^3/uL (0.0-0.8) 09/09/23 04:24 Baso # (Auto) 0.0 10^3/uL (0.0-0.1) 09/09/23 04:24 Nucleated RBC % (auto) 0 % 09/09/23 04:24 Nucleated RBCs # 0.0 /100WBC 09/09/23 04:24 Sodium 145 mmol/L (136-145) 09/09/23 04:24 Potassium 4.3 mmol/L (3.5-5.1) 09/09/23 04:24 Chloride 107 mmol/L (98-107) 09/09/23 04:24 Carbon Dioxide 25 mmol/L (22-29) 09/09/23 04:24 Anion Gap 17.3 (5-19) 09/09/23 04:24 BUN 16 mg/dL (6-20) 09/09/23 04:24 Creatinine 1.1 mg/dL (0.7-1.2) 09/09/23 04:24 GFR Calculation 75.3 mL/min (90-130) L 09/09/23 04:24 Glucose 123 mg/dL (65-115) H 09/09/23 04:24 Calculated Osmolality 303 mOsm/kg (285-295) H 09/09/23 04:24 Calcium 9.7 mg/dL (8.5-10.5) 09/09/23 04:24 Total Bilirubin 0.7 mg/dL (0.15-1.2) 09/09/23 04:24 AST 21 U/L (0-40) 09/09/23 04:24 ALT 21 U/L (0-41) 09/09/23 04:24 Alkaline Phosphatase 114 U/L (40-130) 09/09/23 04:24 Total Protein 7.9 g/dL (6.6-8.7) 09/09/23 04:24 Albumin 4.9 g/dL (3.5-5.2) 09/09/23 04:24 Globulin 3.0 g/dL (1.3-4.6) 09/09/23 04:24 Lipase 23 U/L (13-60) 09/09/23 04:24 Urine Color Yellow (Yellow) 09/09/23 04:46 Urine Appearance Clear (CLEAR) 09/09/23 04:46 Urine pH 5 (5-7) 09/09/23 04:46 Ur Specific [place] 1.010 (1.005-1.030) 09/09/23 04:46 Urine Protein Neg (Negative) 09/09/23 04:46 Urine Glucose (UA) Norm (Normal) 09/09/23 04:46 Urine Ketones Negative (Negative) 09/09/23 04:46 Urine Blood Neg (Negative) 09/09/23 04:46 Urine Nitrate Negative (Negative) 09/09/23 04:46 Urine Bilirubin Neg (Negative) 09/09/23 04:46 Urine Urobilinogen Neg mg/dL (Negative) 09/09/23 04:46 Ur Leukocyte Esterase Trace (Negative) H 09/09/23 04:46 Discharge Plan Discharge Patient Disposition: Home Clinical Impression: Gastroenteritis Condition: Stable Prescriptions: New promethazine 25 mg tablet 25 mg PO Q6H PRN (Reason: nausea and vomiting) Qty: 20 0RF No Action levocetirizine 5 mg tablet 5 mg PO DAILY fluticasone propionate 110 mcg/actuation HFA aerosol inhaler 2 puff inhalation BID azelastine 137 mcg (0.1 %) aerosol,spray 1 spray intranasal BID Rx Instructions: administer into each nostril levalbuterol HCl 0.63 mg/3 mL solution for nebulization 0.63 mg inhalation TID PRN (Reason: shortness of breath or wheezing) Qty: 90 6RF montelukast [Singulair] 10 mg tablet 10 mg PO DAILY Qty: 30 3RF hydrocodone-acetaminophen 5-325 mg tablet 1 tab PO Q8H PRN (Reason: pain) Qty: 14 0RF hydroxyzine HCl 25 mg tablet 25 mg PO QID PRN (Reason: Itching) fluticasone propionate [Flonase Allergy Relief] 50 mcg/actuation spray,suspension 1 spray intranasal DAILY PRN (Reason: Allergy Symptoms) Rx Instructions: administer into each nostril omeprazole 40 mg capsule,delayed release(DR/EC) 40 mg PO DAILY hydroxyzine HCl 25 mg tablet 25 mg PO QID PRN (Reason: anxiety) Qty: 10 0RF Discharge Orders: Discharge ED (Routine); Ordered 09/09/23 Ordered By: Aguilar Larsen Referrals: Johny Funes MD [Primary Care Provider] - Discharge Diet: Clear Liquid Discharge Activity: Increase activity as tolerated Patient Instructions: Clear Liquid Diet (ED), Gastroenteritis (ED), Opioid Safety, Pain Management Activity Restrictions/Additional Instructions: Thank you for choosing [facility] for your healthcare needs today. It is very important that you follow up as instructed or that you return to the Emergency Department should you have concerns or if your condition changes or worsens in any way. Sign Out Sign Out Data: Patient Sign Out occurred on 09/09/23 at 06:20. Patient's care was discussed, and care was transferred from Bart Martinez DO to Aguilar Larsen DO. Coding Level of Care Code ED Ict Support Technicians for Chg Fwd Documented by User: Aguilar Larsen, 09/09/23 14:08 HPI - Abdominal Pain 2 General: Chief Complaint: Abdominal Pain Stated Complaint: n/v passed out fall Time Seen by Provider: 09/09/23 04:42 [facility] ED 2 PFSH: Medical History Anxiety Allergic rhinitis due to allergen No significant past medical history Surgical History History of colonoscopy 04/05 History of appendectomy Hx laparoscopic cholecystectomy No significant past surgical history Social History Smoking and tobacco/nicotine status: former use of tobacco/nicotine (quit about 2 months ago) Quit status (tobacco/nicotine): has quit using Year quit tobacco: 2021 Former quit date comment: 1 ppd X 16 years 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 right ring finger Physical Exam 2 Neuro: MERLINE COMA SCALE: document GCS findings [place] coma scale total score: 15 Course 2 Vital Signs: Vital signs: Vital Signs Temperature 98.8 F 09/09/23 04:12 Pulse Rate 69 09/09/23 06:34 Respiratory Rate 18 09/09/23 06:34 Blood Pressure 96/55 09/09/23 06:34 Pulse Oximetry 96 09/09/23 06:34 Oxygen Delivery Me thod Room Air 09/09/23 06:34 MDM - Abdominal Pain Medical Decision Making Exam reveals periumbilical tenderness, and right-sided abdominal tenderness. There is no fever. Vitals are stable. White blood cell count is 12.4. Blood sugar is 123. Other laboratory findings are nonremarkable as yet. Urinalysis is pending. CT is pending of the abdomen pelvis as well. Care assumed at change of shift CT shows gastroenteritis with a lot of fluid- filled loops of bowel but no signs of obstruction. Patient given second liter of fluids and antiemetics clear liquid diet advance as tolerated recheck fasting worsening change symptoms other labs reviewed patient did have a slight leukocytosis electrolytes BUN/creatinine are normal. Medical Records I reviewed the patient's medical records. Lab Data 09/09/23 04:24 09/09/23 04:24 Labs/Radiology: Radiology Impressions Abdomen/Pelvis CT 09/09/23 04:52 IMPRESSION: No acute subdiaphragmatic pathology. Findings suggesting gastroenteritis. Laboratory Results WBC 12.38 10^3/uL (3.29-11.43) H 09/09/23 04:24 RBC 5.78 10^6/uL (3.85-5.65) H 09/09/23 04:24 Hgb 16.40 g/dL (11.27-16.99) 09/09/23 04:24 Hct 49.3 % (37-53) 09/09/23 04:24 MCV 85.3 fl (82-101) 09/09/23 04:24 MCH 28.4 pg (27-33) 09/09/23 04:24 MCHC 33.3 g/dL (30-55) 09/09/23 04:24 RDW 12.4 % (12.1-15.1) 09/09/23 04:24 Plt Count 242 10^3/cmm (157-399) 09/09/23 04:24 MPV 9.1 fL (7.4-10.4) 09/09/23 04:24 Neut % (Auto) 78.5 % 09/09/23 04:24 Lymph % (Auto) 12.6 % 09/09/23 04:24 Avery % (Auto) 7.5 % 09/09/23 04:24 Eos % (Auto) 1.0 % 09/09/23 04:24 Baso % (Auto) 0.2 % 09/09/23 04:24 Neut # (Auto) 9.72 10^3/uL (1.8-7.7) H 09/09/23 04:24 Lymph # (Auto) 1.6 10^3/uL (0.8-4.8) 09/09/23 04:24 Avery # (Auto) 0.9 10^3/uL (0.2-0.9) 09/09/23 04:24 Eos # (Auto) 0.1 10^3/uL (0.0-0.8) 09/09/23 04:24 Baso # (Auto) 0.0 10^3/uL (0.0-0.1) 09/09/23 04:24 Nucleated RBC % (auto) 0 % 09/09/23 04:24 Nucleated RBCs # 0.0 /100WBC 09/09/23 04:24 Sodium 145 mmol/L (136-145) 09/09/23 04:24 Potassium 4.3 mmol/L (3.5-5.1) 09/09/23 04:24 Chloride 107 mmol/L (98-107) 09/09/23 04:24 Carbon Dioxide 25 mmol/L (22-29) 09/09/23 04:24 Anion Gap 17.3 (5-19) 09/09/23 04:24 BUN 16 mg/dL (6-20) 09/09/23 04:24 Creatinine 1.1 mg/dL (0.7-1.2) 09/09/23 04:24 GFR Calculation 75.3 mL/min (90-130) L 09/09/23 04:24 Glucose 123 mg/dL (65-115) H 09/09/23 04:24 Calculated Osmolality 303 mOsm/kg (285-295) H 09/09/23 04:24 Calcium 9.7 mg/dL (8.5-10.5) 09/09/23 04:24 Total Bilirubin 0.7 mg/dL (0.15-1.2) 09/09/23 04:24 AST 21 U/L (0-40) 09/09/23 04:24 ALT 21 U/L (0-41) 09/09/23 04:24 Alkaline Phosphatase 114 U/L (40-130) 09/09/23 04:24 Total Protein 7.9 g/dL (6.6-8.7) 09/09/23 04:24 Albumin 4.9 g/dL (3.5-5.2) 09/09/23 04:24 Globulin 3.0 g/dL (1.3-4.6) 09/09/23 04:24 Lipase 23 U/L (13-60) 09/09/23 04:24 Urine Color Yellow (Yellow) 09/09/23 04:46 Urine Appearance Clear (CLEAR) 09/09/23 04:46 Urine pH 5 (5-7) 09/09/23 04:46 Ur Specific [place] 1.010 (1.005-1.030) 09/09/23 04:46 Urine Protein Neg (Negative) 09/09/23 04:46 Urine Glucose (UA) Norm (Normal) 09/09/23 04:46 Urine Ketones Negative (Negative) 09/09/23 04:46 Urine Blood Neg (Negative) 09/09/23 04:46 Urine Nitrate Negative (Negative) 09/09/23 04:46 Urine Bilirubin Neg (Negative) 09/09/23 04:46 Urine Urobilinogen Neg mg/dL (Negative) 09/09/23 04:46 Ur Leukocyte Esterase Trace (Negative) H 09/09/23 04:46 All radiology interpretation(s) finalized by discharge Discharge Plan Discharge Patient Disposition: Home Clinical Impression: Gastroenteritis Condition: Stable Prescriptions: New promethazine 25 mg tablet 25 mg PO Q6H PRN (Reason: nausea and vomiting) Qty: 20 0RF No Action levocetirizine 5 mg tablet 5 mg PO DAILY fluticasone propionate 110 mcg/actuation HFA aerosol inhaler 2 puff inhalation BID azelastine 137 mcg (0.1 %) aerosol,spray 1 spray intranasal BID Rx Instructions: administer into each nostril levalbuterol HCl 0.63 mg/3 mL solution for nebulization 0.63 mg inhalation TID PRN (Reason: shortness of breath or wheezing) Qty: 90 6RF montelukast [Singulair] 10 mg tablet 10 mg PO DAILY Qty: 30 3RF hydrocodone-acetaminophen 5-325 mg tablet 1 tab PO Q8H PRN (Reason: pain) Qty: 14 0RF hydroxyzine HCl 25 mg tablet 25 mg PO QID PRN (Reason: Itching) fluticasone propionate [Flonase Allergy Relief] 50 mcg/actuation spray,suspension 1 spray intranasal DAILY PRN (Reason: Allergy Symptoms) Rx Instructions: administer into each nostril omeprazole 40 mg capsule,delayed release(DR/EC) 40 mg PO DAILY hydroxyzine HCl 25 mg tablet 25 mg PO QID PRN (Reason: anxiety) Qty: 10 0RF Discharge Orders: Discharge ED (Routine); Ordered 09/09/23 Ordered By: Aguilar Larsen Referrals: Johny Funes MD [Primary Care Provider] - Discharge Diet: Clear Liquid Discharge Activity: Increase activity as tolerated Patient Instructions: Clear Liquid Diet (ED), Gastroenteritis (ED), Opioid Safety, Pain Management Activity Restrictions/Additional Instructions: Thank you for choosing [facility] for your healthcare needs today. It is very important that you follow up as instructed or that you return to the Emergency Department should you have concerns or if your condition changes or worsens in any way. Sign Out Sign Out Data: Patient Sign Out occurred on 09/09/23 at 06:20. Patient's care was discussed, and care was transferred from Bart Martinez DO to Aguilar Larsen DO. Coding Level of Care Code ED Ict Support Technicians for Craig Lyons
[2023-09-09] MEDS: sodium chloride 0.9% 1,000 ML 999 ML IV ×2 (05:06→06:27)
[2023-09-09 05:07] VITALS: RESP 16
[2023-09-09 05:07] LABS: Bilirubin Urine Neg (Negative); Blood Urine Neg (Negative); Glucose Urine UA Norm (Normal); Ketones Urine Negative (Negative); Leukocyte Esterase Urine Trace (Negative); Nitrate Urine Negative (Negative); Protein Urine Neg (Negative); Urine Appearance Clear (CLEAR); Urine Color Yellow (Yellow); Urobilinogen Urine Neg (Negative); pH Urine 5 (5-7)
[2023-09-09] MEDS: HYDROmorphone 1 mg/mL INJ 1 mL IVP (05:07)
[2023-09-09] MEDS: ondansetron 2 mg/ML SDV 2 mL 8 MG IVP (05:07)
[2023-09-09] MEDS: iohexol 350 mg/mL 500 mL Btl (per mL) IV (05:43)
[2023-09-09] MEDS: haloperidol inj 5 mg/mL INJ 1 mL 3 MG IVP (06:23)
[2023-09-09 06:34] VITALS: BP 96/55; PULSE 69; RESP 18; O2SAT 96
== END 2023-09-09 08:00 | disposition home or self-care (01) ==
PROVIDERS: Emergency Medicine; Emergency Provider Family Medicine; PCP Family Medicine
DX: K52.9 Noninfective gastroenteritis and colitis, unspecified (principal); Z87.891 Personal history of nicotine dependence
CPT/HCPCS: 74177; 80053; 81003; 83690; 85025; 96374; 96375; 99285; J1170; J1630; J2405; J7030; Q9967

== ENCOUNTER 2023-11-06 20:36 | Emergency (ER) | payer MEDICAID, SELFPAY ==
[2023-11-06 20:55] VITALS: BP 117/79; PULSE 68; RESP 16; TEMP 36.7; O2SAT 98
--- NOTE | 2023-11-06 21:14 | XRR_ITS ---
PROCEDURE INFORMATION: Exam: XR Cervical Spine Exam date and time: 11/06/2023 9:32 PM Age: 38 years old Clinical indication: Injury or trauma; Other: Hit by tree limb; Blunt trauma; Additional info: Neck pain TECHNIQUE: Imaging protocol: Radiologic exam of the cervical spine. Views: 2 or 3 views. COMPARISON: CT angio headneck* [id number] 08/21/2023 2:04 PM FINDINGS: Bones/joints: Normal. No acute fracture. Normal alignment. Soft tissues: Unremarkable. XR/XR cervical spine 3V* [id number] IMPRESSION: No acute findings.
--- NOTE | 2023-11-06 21:14 | XRR_ITS ---
PROCEDURE INFORMATION: Exam: XR Lumbosacral Spine Exam date and time: 11/06/2023 9:39 PM Age: 38 years old Clinical indication: Injury or trauma; Other: Hit by tree limb; Blunt trauma (contusions or hematomas); Additional info: Lbp TECHNIQUE: Imaging protocol: Radiologic exam of the lumbosacral spine. Views: 2 or 3 views. COMPARISON: CT abdomen pelvis w con* [id number] 09/09/2023 5:41 AM FINDINGS: Bones/joints: Normal. No acute fracture. Normal alignment. Soft tissues: Unremarkable. XR/XR lumbar spine 2-3V* [id number] IMPRESSION: No acute findings.
--- NOTE | 2023-11-06 21:49 | ED_ITS ---
HPI - Neck Pain/Injury General: Chief Complaint: Neck Pain/Injury Stated Complaint: hit in head by tree branch Time Seen by Provider: 11/06/23 21:15 History of Present Illness: Patient states he was cutting a tree branch off of a roof and a branch fell and hit him on the neck and the low back. Patient reports having neck and back pain since then has been getting worse throughout the day. Patient endorses no back pain or neck pain before this accident. Patient did finish his job and decided to come in later tonight instead of at the time of the accident. Related Data Home Medications Medication Instructions Recorded Confirmed fluticasone propionate 50 1 spray intranasal DAILY PRN 03/24/22 08/21/23 mcg/actuation nasal Allergy Symptoms spray,suspension (Flonase Allergy Relief) hydroxyzine HCl 25 mg tablet 25 mg PO QID PRN Itching 03/24/22 08/21/23 levocetirizine 5 mg tablet 5 mg PO DAILY 06/22/22 08/21/23 azelastine 137 mcg (0.1 %) nasal 1 spray intranasal BID 10/24/22 08/21/23 spray fluticasone propionate 110 2 puff inhalation BID 04/24/23 08/21/23 mcg/actuation HFA aerosol inhaler omeprazole 40 mg capsule,delayed 40 mg PO DAILY 08/21/23 08/21/23 release Previous Rx's Medication Instructions Recorded montelukast 10 mg tablet 10 mg PO DAILY #30 tabs 03/30/22 (Singulair) levalbuterol HCl 0.63 mg/3 mL 0.63 mg (3 mL) inhalation TID PRN 10/24/22 solution for nebulization shortness of breath or wheezing #90 mL hydrocodone 5 mg-acetaminophen 325 1 tab PO Q8H PRN pain #14 tabs 04/26/23 mg tablet hydroxyzine HCl 25 mg tablet 25 mg PO QID PRN anxiety #10 tabs 08/21/23 promethazine 25 mg tablet 25 mg PO Q6H PRN nausea and 09/09/23 vomiting #20 tabs cyclobenzaprine 5 mg tablet 5 mg PO TID PRN muscle spasm #14 11/06/23 tabs meloxicam 7.5 mg tablet 7.5 mg PO .Twice daily #14 tabs 11/06/23 Allergies Allergy/AdvReac Type Severity Reaction Status Date / Time albuterol Allergy Intermediate ADR-Shakine Verified 11/06/23 21:00 ss prednisone Allergy Intermediate ADR-Shakine Verified 11/06/23 21:00 ss Penicillins Allergy ALGY-Rash Verified 11/06/23 21:00 Review of Systems General: Reports: 10 or more systems reviewed and unremarkable except in HPI and below PFSH ED PFSH: Medical History Anxiety Allergic rhinitis due to allergen No significant past medical history Surgical History History of colonoscopy 04/05 History of appendectomy Hx laparoscopic cholecystectomy No significant past surgical history Social History Smoking and tobacco/nicotine status: former use of tobacco/nicotine (quit about 2 months ago) Quit status (tobacco/nicotine): has quit using Year quit tobacco: 2021 Former quit date comment: 1 ppd X 16 years 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 right ring finger Physical Exam Const: COMMON NORMALS: no acute distress, average body habitus, patient oriented x3, no limitations, healthy appearing, alert and well nourished HENMT: COMMON NORMALS: normocephalic, atraumatic, hearing grossly normal bilaterally, external ears normal, Normal external nose present and moist oral mucous membranes HEAD & SCALP: normocephalic and atraumatic NOSE: Normal external nose present EXTERNAL EAR: Yes external ears normal Neck/C-Spine: COMMON NORMALS: no JVD OTHER: Minimal tenderness with palpation of left paraspinal trapezial muscular system no obvious step-off deformity or midline cervical tenderness. Chest: COMMONS NORMALS: normal inspection of the chest and normal palpation of entire chest wall Resp: COMMON NORMALS: normal respiratory effort, No retractions, No use of accessory muscles and clear to auscultation bilaterally AUSCULTATION: clear to auscultation bilaterally Cardio: COMMON NORMALS: no JVD, regular rate, regular rhythm, S1 normal heart sound present, S2 normal heart sound present, No gallops present (Cardio), No clicks present (Cardio), No murmurs present (Cardio) and No rub (Cardio) RATE: regular rate RHYTHM: regular rhythm HEART SOUNDS: S1 normal heart sound present and S2 normal heart sound present GI: COMMON NORMALS: Normal to inspection, nondistended, normoactive bowel sounds present, Soft to palpation, non-tender, No hepatosplenomegaly present and no masses PALPATION: Yes Soft to palpation and Yes No hepatosplenomegaly present Back/Pelvis: OTHER: Minimal tenderness to left paraspinal musculature lumbar region no obvious step- off deformity or midline point tenderness over vertebrae. Neuro: COMMON NORMALS: patient oriented x3 SENSORIUM/ORIENTATION: Yes alert Course Vital Signs: Vital signs: Vital Signs Temperature 98.1 F 11/06/23 20:55 Pulse Rate 68 11/06/23 23:04 Respiratory Rate 16 11/06/23 23:04 Blood Pressure 104/73 11/06/23 23:04 Pulse Oximetry 95 11/06/23 23:04 Oxygen Delivery Me thod Room Air 11/06/23 23:04 MDM - Neck Pain/Injury Medical Decision Making Patient x-rays of cervical and lumbar spine with no acute findings, patient was given 60 mg Toradol 60 mg Norflex which did help her pain somewhat. Patient will be discharged home on meloxicam and Flexeril. Patient has to follow-up with his PCP in approximately 7 days or sooner. Medical Records I reviewed the patient's medical records. Lab Data I reviewed the patient's lab results. Radiology Impressions Cervical Spine X-Ray 11/06/23 21:14 IMPRESSION: No acute findings. Lumbar Spine X-Ray 11/06/23 21:14 IMPRESSION: No acute findings. All radiology interpretation(s) finalized by discharge Discharge Plan Discharge Patient Disposition: Home Clinical Impression: Musculoskeletal back pain, Musculoskeletal neck pain Condition: Stable Prescriptions: New meloxicam 7.5 mg tablet 7.5 mg PO .Twice daily Qty: 14 0RF cyclobenzaprine 5 mg tablet 5 mg PO TID PRN (Reason: muscle spasm) Qty: 14 0RF No Action levocetirizine 5 mg tablet 5 mg PO DAILY fluticasone propionate 110 mcg/actuation HFA aerosol inhaler 2 puff inhalation BID azelastine 137 mcg (0.1 %) aerosol,spray 1 spray intranasal BID Rx Instructions: administer into each nostril levalbuterol HCl 0.63 mg/3 mL solution for nebulization 0.63 mg inhalation TID PRN (Reason: shortness of breath or wheezing) Qty: 90 6RF montelukast [Singulair] 10 mg tablet 10 mg PO DAILY Qty: 30 3RF hydrocodone-acetaminophen 5-325 mg tablet 1 tab PO Q8H PRN (Reason: pain) Qty: 14 0RF promethazine 25 mg tablet 25 mg PO Q6H PRN (Reason: nausea and vomiting) Qty: 20 0RF hydroxyzine HCl 25 mg tablet 25 mg PO QID PRN (Reason: Itching) fluticasone propionate [Flonase Allergy Relief] 50 mcg/actuation spray,suspension 1 spray intranasal DAILY PRN (Reason: Allergy Symptoms) Rx Instructions: administer into each nostril omeprazole 40 mg capsule,delayed release(DR/EC) 40 mg PO DAILY hydroxyzine HCl 25 mg tablet 25 mg PO QID PRN (Reason: anxiety) Qty: 10 0RF Discharge Orders: Discharge ED (Routine); Ordered 11/06/23 Ordered By: Alber Cruz Referrals: Johny Funes MD [Primary Care Provider] - 1 week Patient Instructions: Pain Management, Musculoskeletal Pain (ED) Activity Restrictions/Additional Instructions: Your x-rays were read off by the radiologist as no acute fracture. Uou have been prescribd a pain medicine and muscle relaxer. They have been sent to your pharmacy. Please take these as directed. Please follow-up with your family practitioner in the next 7 days for further evaluation treatment. 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
[2023-11-06] MEDS: orphenadrine 30 mg/mL Inj 2 mL 60 MG IM (22:04)
[2023-11-06] MEDS: ketorolac 60 mg/2 mL INJ IM (22:04)
[2023-11-06 23:04] VITALS: BP 104/73; PULSE 68; RESP 16; O2SAT 95
[2023-11-06 23:31] VITALS: BP 110/73; PULSE 68; O2SAT 98
== END 2023-11-06 23:32 | disposition home or self-care (01) ==
PROVIDERS: Emergency Provider Emergency Medicine; PCP Family Medicine
DX: M54.9 Dorsalgia, unspecified (principal); M54.2 Cervicalgia; Z87.891 Personal history of nicotine dependence
CPT/HCPCS: 72040; 72100; 96372; 99284; J1885; J2360

== ENCOUNTER 2024-02-13 00:34 | Emergency (ER) | payer MEDICAID, SELFPAY ==
[2024-02-13] VITALS (10 sets, daily range): BP systolic 90–140; BP diastolic 62–84; PULSE 59–88; RESP 12–19; O2SAT 59–98; BMI 22.4
--- NOTE | 2024-02-13 00:43 | XRR_ITS ---
PROCEDURE INFORMATION: Exam: XR Chest Exam date and time: 02/13/2024 12:55 AM Age: 38 years old Clinical indication: Pain; Chest pressure; Additional info: Chest pain TECHNIQUE: Imaging protocol: Radiologic exam of the chest. Views: 1 view. COMPARISON: CR XR chest 1V portable [id number] 03/08/2023 9:20 AM FINDINGS: Lungs: Unremarkable. No consolidation. Pleural spaces: Unremarkable. No pleural effusion. No pneumothorax. Heart/Mediastinum: Unremarkable. No cardiomegaly. Bones/joints: Unremarkable. XR/XR chest 1V portable [id number] IMPRESSION: No acute findings.
--- NOTE | 2024-02-13 00:43 | ECG_ITS ---
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 Measurements Intervals [place] Rate: 73 P: 65 MO: 160 QRS: 63 QRSD: 82 T: 59 QT: 356 QTc: 394 Interpretive Statements SINUS RHYTHM POSSIBLE LEFT ATRIAL ENLARGEMENT [-0.1mV P-WAVE IN V1/V2] Compared to ECG 08/31/2023 13:46:17 No significant changes Electronically Signed On 02-13-2024 17:46:26 AUTO BODY REPAIR TECHNICIAN by Constantino Lara M.D. [email or web address]
--- NOTE | 2024-02-13 00:45 | ED_ITS ---
HPI - Chest Pain 2 General: Chief Complaint: Chest Pain Stated Complaint: Chest Pains Time Seen by Provider: 02/13/24 00:37 History of Present Illness: Patient presents to the ER with substernal chest pain is worse down around his xiphoid process. Says started about 8-9 o'clock tonight has been intermittent throughout the night but it when it came back it kept getting worse. Patient has never had this before. Patient does not have a cardiac history. Patient denies any nausea vomiting shortness of breath or diaphoresis. He does say when he pokes his area around his xiphoid process or takes a big deep breath it hurts a little bit more in this area. Related Data Home Medications Medication Instructions Recorded Confirmed fluticasone propionate 50 1 spray intranasal DAILY PRN 03/24/22 08/21/23 mcg/actuation nasal Allergy Symptoms spray,suspension (Flonase Allergy Relief) hydroxyzine HCl 25 mg tablet 25 mg PO QID PRN Itching 03/24/22 08/21/23 levocetirizine 5 mg tablet 5 mg PO DAILY 06/22/22 08/21/23 azelastine 137 mcg (0.1 %) nasal 1 spray intranasal BID 10/24/22 08/21/23 spray fluticasone propionate 110 2 puff inhalation BID 04/24/23 08/21/23 mcg/actuation HFA aerosol inhaler omeprazole 40 mg capsule,delayed 40 mg PO DAILY 08/21/23 08/21/23 release Previous Rx's Medication Instructions Recorded montelukast 10 mg tablet 10 mg PO DAILY #30 tabs 03/30/22 (Singulair) levalbuterol HCl 0.63 mg/3 mL 0.63 mg (3 mL) inhalation TID PRN 10/24/22 solution for nebulization shortness of breath or wheezing #90 mL hydrocodone 5 mg-acetaminophen 325 1 tab PO Q8H PRN pain #14 tabs 04/26/23 mg tablet hydroxyzine HCl 25 mg tablet 25 mg PO QID PRN anxiety #10 tabs 08/21/23 promethazine 25 mg tablet 25 mg PO Q6H PRN nausea and 09/09/23 vomiting #20 tabs cyclobenzaprine 5 mg tablet 5 mg PO TID PRN muscle spasm #14 11/06/23 tabs meloxicam 7.5 mg tablet 7.5 mg PO .Twice daily #14 tabs 11/06/23 Allergies Allergy/AdvReac Type Severity Reaction Status Date / Time albuterol Allergy Intermediate ADR-Shakine Verified 02/13/24 00:44 ss prednisone Allergy Intermediate ADR-Shakine Verified 02/13/24 00:44 ss Penicillins Allergy ALGY-Rash Verified 02/13/24 00:44 Review of Systems 2 General: Reports: 10 or more systems reviewed and unremarkable except in HPI and below PFSH ED 2 PFSH: Medical History Anxiety Allergic rhinitis due to allergen No significant past medical history Surgical History History of colonoscopy 04/05 History of appendectomy Hx laparoscopic cholecystectomy No significant past surgical history Social History Smoking and tobacco/nicotine status: former use of tobacco/nicotine (quit about 2 months ago) Quit status (tobacco/nicotine): has quit using Year quit tobacco: 2021 Former quit date comment: 1 ppd X 16 years 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 right ring finger Physical Exam 2 Const: COMMON NORMALS: no acute distress, average body habitus, patient oriented x3, no limitations, healthy appearing, alert and well nourished HENMT: COMMON NORMALS: normocephalic, atraumatic, hearing grossly normal bilaterally, external ears normal, Normal external nose present and moist oral mucous membranes HEAD & SCALP: normocephalic and atraumatic NOSE: Normal external nose present EXTERNAL EAR: Yes external ears normal Neck/C-Spine: COMMON NORMALS: full ROM, no lymphadenopathy, supple, no meningeal signs, no JVD and Thyroid normal THYROID: Thyroid normal Chest: COMMONS NORMALS: normal inspection of the chest; negative for normal palpation of entire chest wall (Tender to palpation around xiphoid process no appreciable abnormality) Resp: COMMON NORMALS: normal respiratory effort, No retractions, No use of accessory muscles and clear to auscultation bilaterally AUSCULTATION: clear to auscultation bilaterally Cardio: COMMON NORMALS: no JVD, regular rate, regular rhythm, S1 normal heart sound present, S2 normal heart sound present, No gallops present (Cardio), No clicks present (Cardio), No murmurs present (Cardio) and No rub (Cardio) R ATE: regular rate RHYTHM: regular rhythm HEART SOUNDS: S1 normal heart sound present and S2 normal heart sound present GI: COMMON NORMALS: Normal to inspection, nondistended, normoactive bowel sounds present, Soft to palpation, non-tender, No hepatosplenomegaly present and no masses PALPATION: Yes Soft to palpation and Yes No hepatosplenomegaly present Neuro: COMMON NORMALS: patient oriented x3 SENSORIUM/ORIENTATION: Yes alert MENINGEAL SIGNS: Yes no meningeal signs Course 2 Vital Signs: Vital signs: Vital Signs Pulse Rate 59 L 02/13/24 02:30 Respiratory Rate 13 02/13/24 02:30 Blood Pressure 90/69 02/13/24 02:30 Pulse Oximetry 59 L 02/13/24 02:30 Oxygen Delivery Me thod Room Air 02/13/24 01:59 MDM - Chest Pain Medical Decision Making Patient was worked up in standard chest pain fashion with serial EKGs, serial enzymes, chest x-ray, all which was essentially benign. Patient is given 30 mg Toradol IV decreases pain. Patient be discharged home Medical Records I reviewed the patient's medical records. Lab Data I reviewed the patient's lab results. 02/13/24 00:43 02/13/24 00:43 Laboratory Results WBC 7.61 10^3/uL (3.29-11.43) 02/13/24 00:43 RBC 5.09 10^6/uL (3.85-5.65) 02/13/24 00:43 Hgb 14.70 g/dL (11.27-16.99) 02/13/24 00:43 Hct 43.6 % (37-53) 02/13/24 00:43 MCV 85.7 fl (82-101) 02/13/24 00:43 MCH 28.9 pg (27-33) 02/13/24 00:43 MCHC 33.7 g/dL (30-55) 02/13/24 00:43 RDW 11.7 % (12.1-15.1) L 02/13/24 00:43 Plt Count 238 10^3/cmm (157-399) 02/13/24 00:43 MPV 8.7 fL (7.4-10.4) 02/13/24 00:43 Neut % (Auto) 53.6 % 02/13/24 00:43 Lymph % (Auto) 35.2 % 02/13/24 00:43 [place] % (Auto) 9.1 % 02/13/24 00:43 Eos % (Auto) 1.7 % 02/13/24 00:43 Baso % (Auto) 0.3 % 02/13/24 00:43 Neut # (Auto) 4.08 10^3/uL (1.8-7.7) 02/13/24 00:43 Lymph # (Auto) 2.7 10^3/uL (0.8-4.8) 02/13/24 00:43 [place] # (Auto) 0.7 10^3/uL (0.2-0.9) 02/13/24 00:43 Eos # (Auto) 0.1 10^3/uL (0.0-0.8) 02/13/24 00:43 Baso # (Auto) 0.0 10^3/uL (0.0-0.1) 02/13/24 00:43 Nucleated RBC % (auto) 0 % 02/13/24 00:43 Nucleated RBCs # 0.0 /100WBC 02/13/24 00:43 Sodium 143 mmol/L (136-145) 02/13/24 00:43 Potassium 3.8 mmol/L (3.5-5.1) 02/13/24 00:43 Chloride 106 mmol/L (98-107) 02/13/24 00:43 Carbon Dioxide 26 mmol/L (22-29) 02/13/24 00:43 Anion Gap 14.8 (5-19) 02/13/24 00:43 BUN 12 mg/dL (6-20) 02/13/24 00:43 Creatinine 1.2 mg/dL (0.7-1.2) 02/13/24 00:43 GFR Calculation 67.8 mL/min (90-130) L 02/13/24 00:43 Glucose 117 mg/dL (65-115) H 02/13/24 00:43 Calculated Osmolality 297 mOsm/kg (285-295) H 02/13/24 00:43 Calcium 9.3 mg/dL (8.5-10.5) 02/13/24 00:43 Magnesium 2.0 mg/dL (1.7-2.3) 02/13/24 00:43 Total Bilirubin 0.4 mg/dL (0.15-1.2) 02/13/24 00:43 AST 13 U/L (0-40) 02/13/24 00:43 ALT 9 U/L (0-41) 02/13/24 00:43 Alkaline Phosphatase 126 U/L (40-130) 02/13/24 00:43 Troponin T Baseline < 6 ng/L (0-15) 02/13/24 00:43 Troponin T 120 Minute 6.00 ng/L (0-15) 02/13/24 02:30 Delta Troponin T 0.71834 ABS# (0-10) 02/13/24 02:30 Total Protein 6.8 g/dL (6.6-8.7) 02/13/24 00:43 Albumin 4.3 g/dL (3.5-5.2) 02/13/24 00:43 Globulin 2.5 g/dL (1.3-4.6) 02/13/24 00:43 All radiology interpretation(s) finalized by discharge Discharge Plan Discharge Patient Disposition: Home Clinical Impression: Atypical chest pain Condition: Stable Prescriptions: No Action levocetirizine 5 mg tablet 5 mg PO DAILY fluticasone propionate 110 mcg/actuation HFA aerosol inhaler 2 puff inhalation BID azelastine 137 mcg (0.1 %) aerosol,spray 1 spray intranasal BID Rx Instructions: administer into each nostril levalbuterol HCl 0.63 mg/3 mL solution for nebulization 0.63 mg inhalation TID PRN (Reason: shortness of breath or wheezing) Qty: 90 6RF montelukast [Singulair] 10 mg tablet 10 mg PO DAILY Qty: 30 3RF hydrocodone-acetaminophen 5-325 mg tablet 1 tab PO Q8H PRN (Reason: pain) Qty: 14 0RF promethazine 25 mg tablet 25 mg PO Q6H PRN (Reason: nausea and vomiting) Qty: 20 0RF meloxicam 7.5 mg tablet 7.5 mg PO .Twice daily Qty: 14 0RF cyclobenzaprine 5 mg tablet 5 mg PO TID PRN (Reason: muscle spasm) Qty: 14 0RF hydroxyzine HCl 25 mg tablet 25 mg PO QID PRN (Reason: Itching) fluticasone propionate [Flonase Allergy Relief] 50 mcg/actuation spray,suspension 1 spray intranasal DAILY PRN (Reason: Allergy Symptoms) Rx Instructions: administer into each nostril omeprazole 40 mg capsule,delayed release(DR/EC) 40 mg PO DAILY hydroxyzine HCl 25 mg tablet 25 mg PO QID PRN (Reason: anxiety) Qty: 10 0RF Discharge Orders: Discharge ED (Routine); Ordered 02/13/24 Ordered By: Alber Cruz Referrals: Johny Funes MD [Primary Care Provider] - 1 week Patient Instructions: Chest Pain - Noncardiac Activity Restrictions/Additional Instructions: Thank you for choosing [facility] for your healthcare needs today. Please realize that you were seen in the emergency department and that we are providing you with an emergency medical screening exam and this may not be a complete and all exclusive of all testing and/or medical workup we may need to determine your element or severity of your illness. It is very important that you follow-up as instructed with your primary care provider or specialist for the additional evaluation and to discuss your medical treatment plan. You may return to the emergency department should you have concerns or if your condition changes or worsens in any way. Coding Level of Care Code ED Monitor And Storage Bin Tender for Craig Lyons
[2024-02-13 00:48] LABS: Basophils % 0.3 %; Eosinophils # 0.1 10^3/uL (0.0-0.8); Eosinophils % 1.7 %; Hematocrit 43.6 % (37-53); Lymphocytes # 2.7 10^3/uL (0.8-4.8); Lymphocytes % 35.2 %; Mean Corpuscular HGB Conc 33.7 g/dL (30-55); Mean Corpuscular Hemoglobin 28.9 pg (27-33); Mean Corpuscular Volume 85.7 fl (82-101); Mean Platelet Volume 8.7 fL (7.4-10.4); Monocytes # 0.7 10^3/uL (0.2-0.9); Monocytes % 9.1 %; Neutrophils # 4.08 10^3/uL (1.8-7.7); Neutrophils % 53.6 %; Nucleated Red Blood Cells % 0 %; Platelet Count 238 10^3/cmm (157-399); Red Blood Count 5.09 10^6/uL (3.85-5.65); Red Cell Distribution Width 11.7 % (12.1-15.1); White Blood Count 7.61 10^3/uL (3.29-11.43)
[2024-02-13 01:07] LABS: Troponin(5th) Baseline < 6 ng/L (0-15)
[2024-02-13 01:08] LABS: Alanine Aminotransferase 9 U/L (0-41); Albumin Level 4.3 g/dL (3.5-5.2); Alkaline Phosphatase 126 U/L (40-130); Anion Gap 14.8 (5-19); Aspartate Amino Transferase 13 U/L (0-40); Blood Urea Nitrogen 12 mg/dL (6-20); Calcium 9.3 mg/dL (8.5-10.5); Carbon Dioxide 26 mmol/L (22-29); Chloride 106 mmol/L (98-107); Creatinine Clr Calc Pharmacy 90.3092; Globulin 2.5 g/dL (1.3-4.6); Glomerular Filtration Rate 67.8 mL/min (90-130); Glucose 117 mg/dL (65-115); Osmolality Calculated 297 mOsm/kg (285-295); Potassium 3.8 mmol/L (3.5-5.1); Sodium 143 mmol/L (136-145); Total Bilirubin 0.4 mg/dL (0.15-1.2); Total Protein 6.8 g/dL (6.6-8.7)
--- NOTE | 2024-02-13 02:25 | ECG_ITS ---
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 Measurements Intervals [place] Rate: 61 P: 62 VT: 180 QRS: 55 QRSD: 78 T: 62 QT: 369 QTc: 372 Interpretive Statements SINUS RHYTHM POSSIBLE LEFT ATRIAL ENLARGEMENT [-0.1mV P-WAVE IN V1/V2] Compared to ECG 08/31/2023 13:46:17 No significant changes Electronically Signed On 02-13-2024 17:52:26 TRANSITIONAL STUDIES INSTRUCTOR by Constantino Lara M.D. [email or web address]
[2024-02-13 02:54] LABS: Troponin 5 2HR Delta 0.00001 ABS# (0-10)
[2024-02-13] MEDS: ketorolac 30 mg/mL INJ IVP (02:59)
== END 2024-02-13 03:16 | disposition home or self-care (01) ==
PROVIDERS: Emergency Provider Emergency Medicine; PCP Family Medicine
DX: R07.89 Other chest pain (principal); Z87.891 Personal history of nicotine dependence
CPT/HCPCS: 71045; 80053; 83735; 84484; 85025; 93005; 96374; 99285; J1885

== ENCOUNTER 2024-04-03 17:22 | Emergency (ER) | payer MEDICAID, SELFPAY ==
[2024-04-03 17:31] VITALS: BP 117/80; PULSE 77; RESP 18; TEMP 36.4; O2SAT 100
--- NOTE | 2024-04-03 17:38 | ECG_ITS ---
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 Measurements Intervals [place] Rate: 75 P: 77 ID: [id number] QRS: 79 QRSD: 82 T: 56 QT: 348 QTc: 391 Interpretive Statements SINUS RHYTHM Compared to ECG 02/13/2024 02:25:37 No significant changes Electronically Signed On 04-04-2024 17:52:13 FINANCE ACCOUNTING INTERNSHIP by Ryan Randall M.D. [email or web address] [id number]
--- NOTE | 2024-04-03 18:05 | XRR_ITS ---
PROCEDURE INFORMATION: Exam: XR Chest Exam date and time: 04/03/2024 6:11 PM Age: 38 years old Clinical indication: Shortness of breath; Additional info: SOB TECHNIQUE: Imaging protocol: Radiologic exam of the chest. Views: 1 view. COMPARISON: CR XR chest 1V portable [id number] 02/13/2024 12:55 AM FINDINGS: Lungs: Unremarkable. No consolidation. Pleural spaces: Unremarkable. No pleural effusion. No pneumothorax. Heart/Mediastinum: Unremarkable. No cardiomegaly. Bones/joints: Unremarkable. XR/XR chest 1V portable [id number] IMPRESSION: No acute findings.
[2024-04-03 18:24] LABS: Influenza A NEGATIVE (Negative); Influenza B NEGATIVE (Negative); Respiratory Syncytial Virus Ce NEGATIVE (Negative); SARS-CoV-2 PCR NEGATIVE (Negative)
--- NOTE | 2024-04-03 18:25 | ED_ITS ---
HPI - URI/Sore Throat 2 General: Chief Complaint: Upper Respiratory Infection Stated Complaint: SOB Time Seen by Provider: 04/03/24 17:55 Source: patient Mode of arrival: ambulatory Limitations: no limitations History of Present Illness: 30-year-old male states that over the la st few days he feels like he is having short of breath he states that he feels like he is has something stuck at times and is having a hard time with inspiration he denies any fevers he has had a slight cough denies any vomiting or diarrhea. Associated symptoms: Deny abdominal pain, chills, chest pain, diarrhea, fever(s), headache(s), nausea or vomiting Related Data Home Medications ?Medication ?Instructions ?Recorded ?Confirmed fluticasone propionate 50 1 spray intranasal DAILY PRN 03/24/22 08/21/23 mcg/actuation nasal Allergy Symptoms spray,suspension (Flonase Allergy Relief) hydroxyzine HCl 25 mg tablet 25 mg PO QID PRN Itching 03/24/22 08/21/23 levocetirizine 5 mg tablet 5 mg PO DAILY 06/22/2210/06 azelastine 137 mcg (0.1 %) nasal 1 spray intranasal BI D 10/24/22 08/21/23 spray fluticasone propionate 110 2 puff inhalation BID 04/2308/21/23 mcg/actuation HFA aerosol inhaler omeprazole 40 mg capsule,delayed 40 mg PO DAILY 08/21/23 release Previous Rx's ?Medication ?Instructions ?Recorded montelukast 10 mg tablet 10 mg PO DAILY #30 tabs 03/16 07/05 (Singulair) levalbuterol HCl 0.63 mg/3 mL 0.63 mg (3 mL) inhalatio n TID PRN 10/24/22 solution for nebulization shortness of breath or wheez ing #90 mL hydrocodone 5 mg-acetaminophen 325 1 tab PO Q8H PRN pa in #14 tabs 04/26/23 mg tablet hydroxyzine HCl 25 mg tablet 25 mg PO QID PRN anxiety #10 tabs 08/21/23 promethazine 25 mg tablet 25 mg PO Q6H PRN nausea and 09/09/23 vomiting #20 tabs cyclobenzaprine 5 mg tablet 5 mg PO TID PRN muscle spa sm #14 11/06/23 tabs meloxicam 7.5 mg tablet 7.5 mg PO .Twice daily #14 t abs 11/06/23 Allergies Allergy/AdvReac Type Severity Reaction Status Date / Time albuterol Allergy Intermediate ADR-Shakine Verified 02/13/24 00:44 ss prednisone Allergy Intermediate ADR-Shakine Verified 02/13/24 00:44 ss Penicillins Allergy ALGY-Rash Verified 02/13/24 00:44 Review of Systems 2 Const: Denies: fever(s), chills, body aches or change in appetite ENMT: Denies: throat pain or dental pain Card: Denies: chest pain Resp: Reports: dyspnea GI: Denies: abdominal pain, nausea, vomiting or diarrhea Musc: Denies: neck pain or back pain Skin/Breast: Denies: rash Neuro: Denies: headache(s) PFSH ED 2 PFSH: Medical History Anxiety Allergic rhinitis due to allergen No significant past medical history Surgical History History of colonoscopy 04/05 History of appendectomy Hx laparoscopic cholecystectomy No significant past surgical history Social History Smoking and tobacco/nicotine status: former use of tobacco/nicotine (quit about 2 months ago) Quit status (tobacco/nicotine): has quit using Year quit tobacco: 2021 Former quit date comment: 1 ppd X 16 years 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 right ring finger Physical Exam 2 Const: COMMON NORMALS: no acute distress, patient oriented x3 and healthy appearing HENMT: COMMON NORMALS: normocephalic and atraumatic HEAD & SCALP: n ormocephalic and atraumatic Eye: COMMON NORMALS: conjunctivae normal CONJUNCTIVA: Yes conjunctivae normal Neck/C-Spine: COMMON NORMALS: full ROM and supple Chest: COMMONS NORMALS: normal inspection of the chest Resp: COMMON NORMALS: normal respiratory effort, No retractions, No use of accessory muscles and clear to auscultation bilaterally AUSCULTATION: clear to auscultation bilaterally Cardio: COMMON NORMALS: regular rate, regular rhythm and No murmurs present (Cardio) RATE: regular rate RHYTHM: regular rhythm Extremity: COMMON NORMALS: normal to inspection and full ROM Neuro: COMMON NORMALS: patient oriented x3, moves all extremities and no focal motor deficits Psych: COMMON NORMALS: mental status grossly normal, Normal thought process present and cooperative THOUGHT PROCESS: Normal thought process present Skin: COMMON NORMALS: no rashes or lesions noted and no wounds GENERAL SKIN EXAM: no rashes or lesions noted Course 2 Vital Signs: Vital signs: Vital Signs Temperature 97.5 F L 04/03/24 17:31 Pulse Rate 66 04/03/24 18:32 Respiratory Rate 18 04/03/24 17:31 Blood Pressure 116/71 04/03/24 18:32 Pulse Oximetry 100 04/03/24 18:32 Oxygen Delivery Me thod Room Air 04/03/24 18:32 MDM - URI/Sore Throat Medical Decision Making Patient presents here with shortness of breath he has been well-appearing here in no distress D-dimer is negative no signs of pulm embolism x-ray EKG are normal he stable for discharge his follow-up with PCP and return if worsening. Medical Records I reviewed the patient's medical records. Lab Data I reviewed the patient's lab results. 04/03/24 19:02 04/03/24 19:02 Radiology Impressions Chest X-Ray 04/03/24 18:05 IMPRESSION: No acute findings. Laboratory Results WBC 6.42 10^3/uL (3.29-11.43) 04/03/24 19:02 RBC 5.11 10^6/uL (3.85-5.65) 04/03/24 19:02 Hgb 14.40 g/dL (11.27-16.99) 04/03/24 19:02 Hct 43.8 % (37-53) 04/03/24 19:02 MCV 85.7 fl (82-101) 04/03/24 19: MCH 28.2 pg (27-33) 04/03/24 19: MCHC 32.9 g/dL (30-55) 04/03/24 19:02 RDW 12.0 % (12.1-15.1) L 04/03/24 19:02 Plt Count 248 10^3/cmm (157-399) 04/03/24 19:02 MPV 9.0 fL (7.4-10.4) 04/03/24 19:02 Neut % (Auto) 45.8 % 04/03/24 19:02 Lymph % (Auto) 41.1 % 04/03/24 19:02 [place] % (Auto) 10.9 % 04/03/24 19:02 Eos % (Auto) 1.7 % 04/03/24 19:02 Baso % (Auto) 0.3 % 04/03/24 19:02 Neut # (Auto) 2.94 10^3/uL (1.8-7.7) 04/03/24 19:02 Lymph # (Auto) 2.6 10^3/uL (0.8-4.8) 04/03/24 19:02 [place] # (Auto) 0.7 10^3/uL (0.2-0.9) 04/03/24 19:02 Eos # (Auto) 0.1 10^3/uL (0.0-0.8) 04/03/24 19:02 Baso # (Auto) 0.0 10^3/uL (0.0-0.1) 04/03/24 19:02 Nucleated RBC % (auto) 0 % 04/03/24 19:02 Nucleated RBCs # 0.0 /100WBC 04/03/24 19:02 D-Dimer <= 0.27 ug/mLFEU (0-0.59) 04/03/24 19:02 Sodium 143 mmol/L (136-145) 04/03/24 19:02 Potassium 3.6 mmol/L (3.5-5.1) 04/03/24 19:02 Chloride 105 mmol/L (98-107) 04/03/24 19:02 Carbon Dioxide 26 mmol/L (22-29) 04/03/24 19:02 Anion Gap 15.6 (5-19) 04/03/24 19:02 BUN 10 mg/dL (6-20) 04/03/24 19:02 Creatinine 1.0 mg/dL (0.7-1.2) 04/03/24 19:02 GFR Calculation 83.6 mL/min (90-130) L 04/03/24 19:02 Glucose 96 mg/dL (65-115) 04/03/24 19:02 Calculated Osmolality 295 mOsm/kg (285-295) 04/03/24 19:02 Calcium 9.2 mg/dL (8.5-10.5) 04/03/24 19:02 Total Bilirubin 0.5 mg/dL (0.15-1.2) 04/03/24 19:02 AST 15 U/L (0-40) 04/03/24 19:02 ALT 12 U/L (0-41) 04/03/24 19:02 Alkaline Phosphatase 118 U/L (40-130) 04/03/24 19:02 NT-Pro-B Natriuret Pep < 36 pg/mL (0-125) 04/03/24 19:02 Total Protein 6.8 g/dL (6.6-8.7) 04/03/24 19:02 Albumin 4.5 g/dL (3.5-5.2) 04/03/24 19:02 Globulin 2.3 g/dL (1.3-4.6) 04/03/24 19:02 Influenza A (PCR) Negative (Negative) 04/03/24 17:45 Influenza Type B (PCR) Negative (Negative) 04/03/24 17:45 RSV (PCR) Negative (Negative) 04/03/24 17:45 SARS-CoV-2 (PCR) Negative (Negative) 04/03/24 17:45 All radiology interpretation(s) finalized by discharge Discharge Plan Discharge Patient Disposition: Home Clinical Impression: Shortness of breath Condition: Stable Prescriptions: No Action levocetirizine 5 mg tablet 5 mg PO DAILY fluticasone propionate 110 mcg/actuation HFA aerosol inhaler 2 puff inhalation BID azelastine 137 mcg (0.1 %) aerosol,spray 1 spray intranasal BID Rx Instructions: administer into each nostril levalbuterol HCl 0.63 mg/3 mL solution for nebulization 0.63 mg inhalation TID PRN (Reason: shortness of breath or wheezing) Qty: 90 6RF montelukast [Singulair] 10 mg tablet 10 mg PO DAILY Qty: 30 3RF hydrocodone-acetaminophen 5-325 mg tablet 1 tab PO Q8H PRN (Reason: pain) Qty: 14 0RF promethazine 25 mg tablet 25 mg PO Q6H PRN (Reason: nausea and vomiting) Qty: 20 0RF meloxicam 7.5 mg tablet 7.5 mg PO .Twice daily Qty: 14 0RF cyclobenzaprine 5 mg tablet 5 mg PO TID PRN (Reason: muscle spasm) Qty: 14 0RF hydroxyzine HCl 25 mg tablet 25 mg PO QID PRN (Reason: Itching) fluticasone propionate [Flonase Allergy Relief] 50 mcg/actuation spray,suspension 1 spray intranasal DAILY PRN (Reason: Allergy Symptoms) Rx Instructions: administer into each nostril omeprazole 40 mg capsule,delayed release(DR/EC) 40 mg PO DAILY hydroxyzine HCl 25 mg tablet 25 mg PO QID PRN (Reason: anxiety) Qty: 10 0RF Discharge Orders: Discharge ED (Routine); Ordered 04/03/24 Ordered By: Denisa Wesley Referrals: Johny Funes MD [Primary Care Provider] - 4-7 days Discharge Diet: Advance as tolerated Discharge Activity: Resume usual activity Patient Instructions: Shortness of Breath (ED) Print Language: Montserratian Coding Level of Care Code ED Health Sanitarian for Craig Lyons
[2024-04-03 18:32] VITALS: BP 116/71; PULSE 66; O2SAT 100
[2024-04-03 19:24] LABS: Basophils % 0.3 %; Eosinophils # 0.1 10^3/uL (0.0-0.8); Eosinophils % 1.7 %; Hematocrit 43.8 % (37-53); Lymphocytes # 2.6 10^3/uL (0.8-4.8); Lymphocytes % 41.1 %; Mean Corpuscular HGB Conc 32.9 g/dL (30-55); Mean Corpuscular Hemoglobin 28.2 pg (27-33); Mean Corpuscular Volume 85.7 fl (82-101); Monocytes # 0.7 10^3/uL (0.2-0.9); Monocytes % 10.9 %; Neutrophils # 2.94 10^3/uL (1.8-7.7); Neutrophils % 45.8 %; Nucleated Red Blood Cells % 0 %; Platelet Count 248 10^3/cmm (157-399); Red Blood Count 5.11 10^6/uL (3.85-5.65); White Blood Count 6.42 10^3/uL (3.29-11.43)
[2024-04-03 19:52] LABS: D Dimer <= 0.27 ug/mLFEU (0-0.59)
[2024-04-03 19:58] LABS: Alanine Aminotransferase 12 U/L (0-41); Albumin Level 4.5 g/dL (3.5-5.2); Alkaline Phosphatase 118 U/L (40-130); Anion Gap 15.6 (5-19); Aspartate Amino Transferase 15 U/L (0-40); Blood Urea Nitrogen 10 mg/dL (6-20); Calcium 9.2 mg/dL (8.5-10.5); Carbon Dioxide 26 mmol/L (22-29); Chloride 105 mmol/L (98-107); Globulin 2.3 g/dL (1.3-4.6); Glomerular Filtration Rate 83.6 mL/min (90-130); Glucose 96 mg/dL (65-115); NT Pro B Type Natriuretic Pept < 36 pg/mL (0-125); Osmolality Calculated 295 mOsm/kg (285-295); Potassium 3.6 mmol/L (3.5-5.1); Sodium 143 mmol/L (136-145); Total Bilirubin 0.5 mg/dL (0.15-1.2); Total Protein 6.8 g/dL (6.6-8.7)
[2024-04-03 20:10] VITALS: BP 125/81; PULSE 66; RESP 18; O2SAT 98
== END 2024-04-03 20:11 | disposition home or self-care (01) ==
PROVIDERS: Emergency Provider Emergency Medicine; PCP Family Medicine
DX: R06.02 Shortness of breath (principal); Z11.52 Encounter for screening for COVID-19; Z87.891 Personal history of nicotine dependence
CPT/HCPCS: 36415; 71045; 80053; 83880; 85025; 85378; 87637; 93005; 99285

== ENCOUNTER → 2024-07-24 16:01 | Outpatient (BNVA) | payer MEDICAID, SELFPAY | PROVIDERS: PCP Family Medicine; Visit Provider Specialist | DX: M77.11 Lateral epicondylitis, right elbow (principal); G56.11 Other lesions of median nerve, right upper limb | CPT/HCPCS: 73080 ==

== ENCOUNTER 2024-11-20 12:07 | Emergency (ER) | payer MEDICAID, SELFPAY ==
[2024-11-20 12:14] VITALS: BP 125/77; PULSE 82; RESP 17; TEMP 36.6; O2SAT 99; BMI 22.4
--- NOTE | 2024-11-20 12:18 | W.ED.ABDPA2 ---
HPI - Abdominal Pain General: Chief Complaint: Abdominal Pain Stated Complaint: severe abd pain Time Seen by Provider: 11/20/24 12:15 History of Present Illness: 39-year-old man with a history of appendectomy, cholecystectomy, alternating constipation and diarrhea, asthma and anxiety who presents to the emergency room with abdominal pain. This has been for about a week but became more severe last night. Has had some nausea but no vomiting diarrhea or constipation.. He said he had a normal bowel movement today. No fever. He said some mild dysuria and increased urination but no difficulty urinating. Related Data Home Medications ?Medication ?Instructions ?Recorded ?Confirmed levocetirizine 5 mg tablet 5 mg PO DAILY 06/22/22 11/20/24 fluticasone propionate 110 2 puff inhalation BID 04/24/23 11/20/24 mcg/actuation HFA aerosol inhaler omeprazole 40 mg capsule,delayed 40 mg PO DAILY 08/21/23 11/20/24 release bupropion HCl 300 mg 24 hr tablet, 300 mg PO DAILY 11/20/24 11/20/24 extended release hydroxyzine HCl 25 mg tablet 25 mg PO Q6H 11/20/24 11/20/24 Allergies Allergy/AdvReac Type Severity Reaction Status Date / Time albuterol Allergy Intermediate ADR-Shakine Verified 07/24/24 15:20 ss prednisone Allergy Intermediate ADR-Shakine Verified 07/24/24 15:20 ss Penicillins Allergy ALGY-Rash Verified 07/24/24 15:20 Review of Systems Narrative: Constitutional symptoms: Negative except as documented in HPI. Skin symptoms: Negative except as documented in HPI. Eye symptoms: Negative except as documented in HPI. ENMT symptoms: Negative except as documented in HPI. Respiratory symptoms: Negative except as documented in HPI. Cardiovascular symptoms: Negative except as documented in HPI. Gastrointestinal symptoms: Negative except as documented in HPI. Genitourinary symptoms: Negative except as documented in HPI. Musculoskeletal symptoms: Negative except as documented in HPI. Neurologic symptoms: Negative except as documented in HPI. Psychiatric symptoms: Negative except as documented in HPI. Endocrine symptoms: Negative except as documented in HPI. 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 Skin: Warm, dry. Head: Normocephalic, atraumatic. Neck: Supple, trachea midline. Eye: Extraocular movements are intact. Ears, nose, mouth and throat: mucosa moist. Cardiovascular: Regular, Normal peripheral perfusion. Respiratory: Lungs are clear to auscultation, respirations are non-labored, breath sounds are equal, Symmetrical chest wall expansion. Gastrointestinal: Soft, some tenderness in the mid and left lower abdomen, Non distended Musculoskeletal: Normal ROM, no deformity. Neurological: Alert and oriented, No focal neurological deficit observed. Psychiatric: Cooperative, appropriate mood & affect. Course Vital Signs: Vital signs: Vital Signs Temperature 97.8 F 11/20/24 12:14 Pulse Rate 82 11/20/24 12:14 Respiratory Rate 17 11/20/24 12:14 Blood Pressure 125/77 11/20/24 12:14 Pulse Oximetry 99 11/20/24 12:14 Oxygen Delivery Me thod Room Air 11/20/24 12:14 MDM - Abdominal Pain Medical Decision Making Medical decision making: Differential diagnosis for a patient who presents with left lower quadrant abdominal pain including but not limited to and based on the above HPI, review of systems and physical exam: Diverticulitis. Constipation Ureterolithiasis. Urinary tract infection. colitis. small bowel obstruction. Crohn's flare. Orders placed to evaluate differential diagnosis based on the above differential, HPI and physical exam Lab Review: Laboratory results were reviewed and interpreted by myself the emergency room physician. No leukocytosis. No anemia. No renal failure. Urinalysis is negative for infection. Liver enzymes are normal. CRP is negative. CT of the abdomen and pelvis with contrast: No acute process. This was reviewed and interpreted by myself the emergency room physician. I also reviewed the radiology report. I reviewed the patient's medical record. 39-year-old man with a history of appendectomy, cholecystectomy, alternating constipation and diarrhea, asthma and anxiety Reexamination: Patient remained stable. No increased work of breathing. No altered mental status. No focal motor deficits. Assessment and plan: Abdominal pain - Discharged home - Discussed plan with patient. Answered any questions. - Evaluation and treatment of this problem were appropriate in the emergency setting. Lab Data 11/20/24 12:30 11/20/24 12:30 Labs/Radiology: Radiology Impressions Abdomen/Pelvis CT 11/20/24 12:33 IMPRESSION: 1. No CT evidence of acute intra-abdominal or pelvic pathology. 2. Additional findings, as above. Laboratory Results WBC 5.17 10^3/uL (3.29-11.43) 11/20/24 12:30 RBC 5.46 10^6/uL (3.85-5.65) 11/20/24 12:30 Hgb 15.60 g/dL (11.27-16.99) 11/20/24 12:30 Hct 46.3 % (37-53) 11/20/24 12:30 MCV 84.8 fl (82-101) 11/20/24 12:30 MCH 28.6 pg (27-33) 11/20/24 12:30 MCHC 33.7 g/dL (30-55) 11/20/24 12:30 RDW 12.3 % (12.1-15.1) 11/20/24 12:30 Plt Count 248 10^3/cmm (157-399) 11/20/24 12:30 MPV 9.2 fL (7.4-10.4) 11/20/24 12:30 Neut % (Auto) 58.6 % 11/20/24 12:30 Lymph % (Auto) 26.7 % 11/20/24 12:30 [place] % (Auto) 11.0 % 11/20/24 12:30 Eos % (Auto) 3.1 % 11/20/24 12:30 Baso % (Auto) 0.4 % 11/20/24 12:30 Neut # (Auto) 3.03 10^3/uL (1.8-7.7) 11/20/24 12:30 Lymph # (Auto) 1.4 10^3/uL (0.8-4.8) 11/20/24 12:30 [place] # (Auto) 0.6 10^3/uL (0.2-0.9) 11/20/24 12:30 Eos # (Auto) 0.2 10^3/uL (0.0-0.8) 11/20/24 12:30 Baso # (Auto) 0.0 10^3/uL (0.0-0.1) 11/20/24 12:30 Nucleated RBC % (auto) 0 % 11/20/24 12:30 Nucleated RBCs # 0.0 /100WBC 11/20/24 12:30 Sodium 138 mmol/L (136-145) 11/20/24 12:30 Potassium 4.1 mmol/L (3.5-5.1) 11/20/24 12:30 Chloride 100 mmol/L (98-107) 11/20/24 12:30 Carbon Dioxide 25 mmol/L (22-29) 11/20/24 12:30 Anion Gap 17.1 (5-19) 11/20/24 12:30 BUN 10 mg/dL (6-20) 11/20/24 12:30 Creatinine 1.2 mg/dL (0.7-1.2) 11/20/24 12:30 GFR Calculation 67.4 mL/min (90-130) L 11/20/24 12: Glucose 122 mg/dL (65-115) H 11/20/24 12:30 Calculated Osmolality 286 mOsm/kg (285-295) 11/20/24 12:30 Lactic Acid 1.5 mmol/L (0.5-2.2) 11/20/24 12:30 Calcium 10.0 mg/dL (8.5-10.5) 11/20/24 12:30 Total Bilirubin 0.8 mg/dL (0.15-1.2) 11/20/24 12:30 AST 22 U/L (0-40) 11/20/24 12:30 ALT 13 U/L (0-41) 11/20/24 12:30 Alkaline Phosphatase 126 U/L (40-130) 11/20/24 12:30 C-Reactive Protein 3.0 mg/L (0.0-4.9) 11/20/24 12:30 Total Protein 7.4 g/dL (6.6-8.7) 11/20/24 12:30 Albumin 4.7 g/dL (3.5-5.2) 11/20/24 12:30 Globulin 2.7 g/dL (1.3-4.6) 11/20/24 12:30 Lipase 18 U/L (13-60) 11/20/24 12:30 Urine Color Yellow (Yellow) 11/20/24 12:29 Urine Appearance Clear (CLEAR) 11/20/24 12:29 Urine pH 8.0 (5-7) A 11/20/24 12:29 Ur Specific [place] 1.013 (1.005-1.030) 11/20/24 12:29 Urine Protein Negative (Negative) 11/20/24 12:29 Urine Glucose (UA) Negative (Normal) 11/20/24 12: Urine Ketones Negative (Negative) 11/20/24 12: Urine Blood Negative (Negative) 11/20/24 12: Urine Nitrate Negative (Negative) 11/20/24 12: Urine Bilirubin Negative (Negative) 11/20/24 12:29 Urine Urobilinogen 0.2 mg/dL (Negative) 11/20/24 12:29 Ur Leukocyte Esterase Negative (Negative) 11/20/24 12: Amorphous Sediment Not Reportable 11/20/24 12:29 All radiology interpretation(s) finalized by discharge Discharge Plan Discharge Patient Disposition: Home Clinical Impression: Abdominal pain Condition: Stable Prescriptions: No Action levocetirizine 5 mg tablet 5 mg PO DAILY fluticasone propionate 110 mcg/actuation HFA aerosol inhaler 2 puff inhalation BID Patient Comments: prn omeprazole 40 mg capsule,delayed release(DR/EC) 40 mg PO DAILY hydroxyzine HCl 25 mg tablet 25 mg PO Q6H bupropion HCl 300 mg tablet extended release 24 hr 300 mg PO DAILY Patient Comments: Patient has stopped taking Discharge Orders: Discharge ED (Routine); Ordered 11/20/24 Ordered By: Leia Garcia Referrals: Robert Yan MD [Primary Care Provider, Family Practice] Discharge Diet: Advance as tolerated Discharge Activity: Increase activity as tolerated Patient Instructions: Abdominal Pain (ED), Opioid Safety, Pain Management, Patient Portal & Thor Instructions Activity Restrictions/Additional Instructions: Thank you for choosing [facility] for your healthcare needs today. You have been screened and evaluated and felt safe for discharge. Health conditions do change or evolve sometimes and as such it is important that you follow up with your Primary Doctor to be re checked, 3-5 days is a general good time frame for follow up. You are always welcome to return to the ED for re assessment if your symptoms are worsening or you have new concerns Print Language: Serbian Coding Level of Care Code ED Clinical Education Specialist for Craig Lyons
--- NOTE | 2024-11-20 12:33 | CTR_ITS ---
PROCEDURE INFORMATION: Exam: CT Abdomen And Pelvis With Contrast Exam date and time: 11/20/2024 1:00 PM Age: 39 years old Clinical indication: Abdominal pain; Localized; Prior surgery; Surgery date: 6+ months; Surgery type: Gb, appendix; PT presents to ED with C/O lower abd pain; Reports generalized x1 week but severe lower abd since last night; Nausea. PT denies vomiting, diarrhea/constipation. TECHNIQUE: Imaging protocol: Computed tomography of the abdomen and pelvis with contrast. Axial, coronal and sagittal reformatted images were created and reviewed. Radiation optimization: All CT scans at this facility use at least one of these dose optimization techniques: automated exposure control; mA and/or kV adjustment per patient size (includes targeted exams where dose is matched to clinical indication); or iterative reconstruction. Contrast material: OMNI 350; Contrast volume: 100 ml; Contrast route: INTRAVENOUS (IV); COMPARISON: CT abdomen pelvis w con* [id number] 09/09/2023 5:41 AM RADIATION DOSE METRICS: Total DLP (mGy-cm): 456.77 FINDINGS: Diaphragm: Small hiatal hernia. Liver: Mild, diffuse hepatic steatosis. 4 mm low-density lesion in the left hepatic lobe, too small to characterize. Gallbladder and biliary ducts: Status post cholecystectomy. No biliary ductal dilatation. Pancreas: Unremarkable. Spleen: Coarse calcified splenic granulomata. Adrenal glands: Normal. No mass. Kidneys and ureters: Nonobstructing right renal calculus. No hydronephrosis. Stomach and bowel: No bowel wall thickening. No obstruction. No pneumatosis. Appendix: Appendix not identified with certainty but no right lower quadrant inflammatory change to suggest acute appendicitis. Intraperitoneal space: No free fluid. No organized fluid collection. No free air. Vasculature: Unremarkable. No aneurysm. Lymph nodes: Small mesenteric lymph nodes, nonspecific in appearance. No pathologically enlarged lymph nodes. Urinary bladder: Unremarkable as visualized. Reproductive: Unremarkable. Bones/joints: No acute osseous abnormality. Osteopenia. Soft tissues: Unremarkable. CT/CT abdomen pelvis w con* [id number] IMPRESSION: 1. No CT evidence of acute intra-abdominal or pelvic pathology. 2. Additional findings, as above.
[2024-11-20 12:51] LABS: Glucose Urine UA Negative (Normal); Nitrate Urine Negative (Negative); Specific Gravity, Urine 1.013 (1.005-1.030)
[2024-11-20 13:01] LABS: Hematocrit 46.3 % (37-53); Hemoglobin 15.60 g/dL (11.27-16.99); Mean Corpuscular HGB Conc 33.7 g/dL (30-55); Mean Corpuscular Hemoglobin 28.6 pg (27-33); Mean Corpuscular Volume 84.8 fl (82-101); Nucleated Red Blood Cells % 0 %; Platelet Count 248 10^3/cmm (157-399); Red Blood Count 5.46 10^6/uL (3.85-5.65); White Blood Count 5.17 10^3/uL (3.29-11.43)
[2024-11-20] MEDS: iohexol 350 mg/mL 500 mL Btl (per mL) IV (13:04)
[2024-11-20 13:28] LABS: Lactic Sepsis W/Reflex 1.5 mmol/L (0.5-2.2)
[2024-11-20 13:29] LABS: Alanine Aminotransferase 13 U/L (0-41); Albumin Level 4.7 g/dL (3.5-5.2); Alkaline Phosphatase 126 U/L (40-130); Anion Gap 17.1 (5-19); Aspartate Amino Transferase 22 U/L (0-40); Blood Urea Nitrogen 10 mg/dL (6-20); Calcium 10.0 mg/dL (8.5-10.5); Carbon Dioxide 25 mmol/L (22-29); Chloride 100 mmol/L (98-107); Creatinine Clr Calc Pharmacy 89.4238; Globulin 2.7 g/dL (1.3-4.6); Glucose 122 mg/dL (65-115); Lipase 18 U/L (13-60); Osmolality Calculated 286 mOsm/kg (285-295); Potassium 4.1 mmol/L (3.5-5.1); Sodium 138 mmol/L (136-145); Total Protein 7.4 g/dL (6.6-8.7)
[2024-11-20 15:03] VITALS: BP 118/80; PULSE 70; O2SAT 98
== END 2024-11-20 15:30 | disposition home or self-care (01) ==
PROVIDERS: Emergency Provider Emergency Medicine; PCP Family Medicine
DX: R10.9 Unspecified abdominal pain (principal); Z87.891 Personal history of nicotine dependence
CPT/HCPCS: 36415; 74177; 80053; 81001; 83605; 83690; 85025; 86140; 99285

== ENCOUNTER 2025-01-17 09:47 | Outpatient (CLI) | payer MEDICAID, SELFPAY ==
--- NOTE | 2025-01-17 09:56 | XR_ITS ---
WS: [id number] Exam: XR thoracic spine min 4V [id number] Date/Time of Exam: 01/17/2025 10:35 AM Reason For Exam: THORACIC REGION BACK PAIN Compared to previous exam 02/28/2007. No fracture. Disc spaces are preserved. Normal paraspinal soft tissues. No scoliosis. XR/XR thoracic spine min 4V [id number] IMPRESSION: 1. Negative T-spine study.
== END 2025-01-17 09:48 | disposition home or self-care (01) ==
PROVIDERS: PCP Family Medicine; Visit Provider Family Medicine
DX: M54.6 Pain in thoracic spine (principal)
CPT/HCPCS: 72074